=== PATIENT | female | born 1985 | race Caucasian/White ===

== ENCOUNTER → 2016-09-14 | Outpatient (CLI) | payer OTHER ==
[~2016-09-14] MED LIST: /FAMO2TA PO; /LAMO15TA PO; /ONDA4TA PO; ACET50TA PO; AMIT25TA PO; CALC600T7 PO; CARA1TAB2 PO; CLON1TAB PO; DIPH50CA PO; FENT12PA TOP; FERR325T3 PO; FISHCAP PO; FOLI5INJ2 PO; GABA-283 PO; GABA300C2 PO; HYDR-3713 PO; HYDR-3719 PO; KLON0.5T PO; LAMI25TA PO; LAMI50TA PO; LASI20TA PO; LEVO75TA3 PO; MIRA3350 PO; MORP-38 PO; MORP1CAP48 PO; MORP30TA2 PO; OMEP40CA2 PO; OXYC-517 PO; OXYC1SOL PO; OXYC5CAP28 PO; POTA10IN2 PO; PRIS100T PO; ROBA750T4 PO; SYSTSOL5 OU; TOPA50TA PO; TYLE325T5 PO; VENL75CA PO; VITA200015 PO; VITA200C10 PO; VITA250L PO; VITA400T15 PO; WELLTAB4 PO; [UNRECOGNIZED DRUG - CODE] PO; [UNRECOGNIZED DRUG - CODE] PO; [UNRECOGNIZED DRUG - OTHER] PO; [UNRECOGNIZED DRUG - OTHER] PO; pericolace PO
--- NOTE | 2016-09-18 23:52 | ECWPNPC ---
PATIENT NAME: LEMUEL LARSON : 1985 GENDER: FEMALE VISIT DATE: 09/14/2016 DISCHARGE DATE: 09/14/16 1503 VISIT LOCKED DATE TIME: PHYSICIAN: FAIZAN ADAIR RESOURCE: FAIZAN ADAIR REASON FOR APPOINTMENT 1. BACK HISTORY OF PRESENT ILLNESS HISTORY OF PRESENT ILLNESS: PAIN THE PATIENT DESCRIBES THE PAIN... FALL RISK SCREENING: SCREENING :NO FALLS IN THE PAST YEAR TODAY'S VISIT: NOTES: RATES PAIN TODAY 9/10. IS HAVING MORE TINGLING IN PALMS OF HANDS ESPECIALLY WHEN SLEEPING. IS HAVING BILATERAL HIP PAIN. NOTES SORENESS AND TENDERNESS OVER THE NECK AND SHOULDERS. STATES IS SLEEPING FAIRLY WELL. HAS NOT SEEN BH IN A WHILE. CURRENT MEDICATIONS TAKING SYSTANE ULTRA 0.4-0.3 % SOLUTION BOTH EYES OPHTHALMIC 24 TIME(S) A DAY TAKING TOPAMAX 50 MG TABLET 1 TABLET ORALLY DAILY, NOTES: WILFRIDO TAKING LAMICTAL 75 MG TABLET 1 TABLET ORALLY DAILY, NOTES: WILFRIDO TAKING VITAMIN B-12 500 MCG TABLET 1 TABLET ORALLY ONCE A DAY TAKING EFFEXOR XR 75 MG CAPSULE EXTENDED RELEASE 24 HOUR 1 CAPSULE WITH FOOD ORALLY ONCE A DAY, NOTES: PSYCH TAKING SALINE NASAL SPRAY 0.65 % SOLUTION 2 DROPS IN EACH NOSTRIL NEEDED NASALLY EVERY 2 HRS, NOTES: NOT USING TAKING IMMODIUM 1 TAB ORAL DIRECTED, NOTES: 2 TABS IN AM TAKING IRON 325 (65 FE) MG TABLET 1 TABLET ORALLY ONCE A DAY TAKING FOLIC ACID 1 MG TABLET TAKE ONE TABLET BY MOUTH EVERY DAY TAKING LEVOTHYROXINE SODIUM 75 MCG CAPSULE 1 TABLET ORALLY ONCE A DAY TAKING GABAPENTIN 300 MG CAPSULE 1 CAPSULE ORALLY THREE TIMES A DAY, NOTES: PAIN TAKING HM VITAMIN D3 2000 UNIT CAPSULE 1 CAPSULE ORALLY ONCE A DAY TAKING OXYCODONE HCL 5 MG TABLET 1 TABLET ORALLY EVERY 8-12 HRS PRN PAIN MDD=2 TAKING KLONOPIN 1 MG TABLET 1 TABLET ORALLY DAILY PRN ANXIETY MDD=1 TAKING OMEPRAZOLE 40MG 40 MG TABLET 1 TABLET ORAL ONCE DAILY NOT-TAKING BENADRYL 25 MG TABLET 1 TABLET NEEDED ORALLY TWICE A DAY, NOTES: MONTHS AGO NOT-TAKING OXYCODONE HCL 5 MG TABLET 1 TABLET ORALLY EVERY 8-12 HRS MDD=2 NOT-TAKING PRECOSE 25 MG TABLET 1 TAB(S): 30 MINUTES BEFORE A MEAL ORALLY THREE TIMES A DAY, NOTES: NOT TAKING NOT-TAKING AMITRIPTYLINE HCL 25 MG TABLET 1 TABLET AT BEDTIME ORALLY ONCE A DAY, NOTES: 1 MONTH AGO DISCONTINUED ATENOLOL 25 MG TABLET 1/2 TABLET ORALLY DAILY MEDICATION LIST REVIEWED AND RECONCILED WITH THE PATIENT PAST MEDICAL HISTORY REPORTS THYROID NODULES BUT THYROID ULTRASOUND 2011 REPORTS NO SOLID NODULE SEEN. SMALL CYSTIC AREA LOWER POLE RIGHT LOBE NO EXTRATHYROIDAL LESION GERD DEPRESSION ANXIETY FOLLOWS WITH [facility] FROM [facility] CHRONIC BACK PAIN AUTISM SPECTRUM DISORDER-ASPERGER'S SYNDROME PULMONARY EMBOLISM 2010 DIAGNOSED IN [facility], HAD EXTENSIVE WORKUP INCLUDING HYPERCOAGULABLE AND GENETIC TESTING AND REPORTEDLY WAS NEGATIVE 10 YEAR ASCVD RISK 0.3% (07/2014) ECHO FROM OCTOBER 2015 REPORTS NO SIGNIFICANT VALVAR DISEASE LEFT VENTRICULAR SYSTOLIC FUNCTION NORMAL LEFT VENTRICULAR DIASTOLIC FUNCTION NORMAL NO INTRACARDIAC MASSES OR VEGETATION. 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 NEW PATIENT PAIN DIARY TODAY'S VISITNOTES FROM 0-10, WHAT LEVEL IS YOUR PAIN TODAY?0 PAIN CLINIC PFS, CLERGY, PUBLIC HEALTH REFERRALS PFS REFERRAL NEEDED?NO CLERGY REFERRAL NEEDED?NO PUBLIC HEALTH REFERRAL NEEDED?NO WAS THE PROVIDER NOTIFIED OF ANY PERTINENT INFO?NO PFS REFERRAL NEEDED?NO CLERGY REFERRAL NEEDED?NO PUBLIC HEALTH REFERRAL NEEDED?NO WAS THE PROVIDER NOTIFIED OF ANY PERTINENT INFO?NO REVIEW OF SYSTEMS CONSTITUTIONAL: ANY CHANGE IN YOUR MEDICAL CONDITION? NO . CHILLS NO . FEVER NO . INFECTION: DO YOU HAVE NEW INFECTIONS? NO . DO YOU HAVE HISTORY OF MRSA? NO . MUSCULOSKELETAL: ANY NEW PATTERNS OF PAIN OR NUMBNESS? NO . GASTROENTEROLOGY: ANY NEW CHANGE IN BOWEL CONTROL? NO . GENITOURINARY: ANY NEW CHANGE IN BLADDER CONTROL? NO . IS THERE A CHANCE YOU COULD BE ? NO . HEMATOLOGY/LYMPH: DO YOU TAKE ANY BLOOD THINNERS? (FOR EXAMPLE- COUMADIN, PLAVIX, AGGRENOX, PLATEL, PRADAXA, OR XARELTO) NO . WHEN WAS YOUR LAST DOSE? DATE: TIME: . NEUROLOGY: HAVE YOU FALLEN IN THE PAST 6 MONTHS? NO . ANY NEW EXTREMITY NUMBNESS OR WEAKNESS? NO . CARDIOLOGY: DO YOU HAVE A PACEMAKER OR DEFIBRILLATOR? NO . RESPIRATORY: HAVE YOU BEEN SICK IN THE PAST WEEK? NO . FEVER NO . FLU LIKE SYMPTOMS? NO . COUGH NO . INTEGUMENTARY: DO YOU HAVE ANY RASHES OR OPEN SORES? NO . ALLERGIC/IMMUNO: ARE YOU ALLERGIC TO SHELLFISH OR IV DYE? NO . ANY NEW ALLERGIES? NO . PSYCHIATRIC: DO YOU HAVE THOUGHTS OF HURTING YOURSELF OR SOMEONE ELSE? NO . ARE YOU ABUSED, NEGLECTED, OR IN AN UNSAFE ENVIRONMENT? NO . ENDOCRINOLOGY: ARE YOU DIABETIC? NO . OTHER: DO YOU NEED ANY PRESCRIPTIONS? YES, SOMETHING TO HELP THE PAIN . IF YES, PLEASE LIST: ____ . ANY NEW PROBLEMS WITH YOUR MEDICATIONS? NO . WHEN DID YOU LAST EAT? ____ . WHAT DID YOU LAST DRINK? ____ . NAME OF PERSON DRIVING YOU HOME? ____ . DO YOU HAVE ANY OTHER QUESTIONS OR CONCERNS YES, NEED TO SCHEDULE EPIDURAL . REVIEWED BY: PROVIDER: FAIZAN SAHU . VITAL SIGNS WT 221 LBS, HT 63 IN, BMI 39.14 INDEX, BP 127/72 MM HG, HR 80 /MIN, RR 18 /MIN, TEMP 98.9 F, OXYGEN SAT % 100, REVIEWED BY: VD. EXAMINATION GENERAL EXAMINATION: PSYCHALERT , ORIENTED X 3 , APPROPRIATE MOOD AND AFFECT , GOOD EYE CONTACT. LUNGS:CLEAR TO AUSCULTATION BILATERALLY. HEART:HEART RATE REGULAR, RAPID. MUSCULOSKELETAL:MUSCLE STRENGTH TESTING 5/5 BILATERAL UPPER AND LOWER EXTREMITIES, TRIGGER POINTS:, ELICITED WITH PALPATION OVER LUMBAR PARAVERTEBRAL MUSCLES AND INTO THE SECRUM. RESTRICTION OF ROM IN THIS AREA. ASSESSMENTS MYALGIA - M79.1 (PRIMARY) LUMBAR DISC DISPLACEMENT WITHOUT MYELOPATHY - M51.26 FIBROMYALGIA - M79.7 USE OF OPIATES FOR THERAPEUTIC PURPOSES - Z79.891 TREATMENT MYALGIA REFILL GABAPENTIN CAPSULE, 400 MG, 1 CAPSULE, ORALLY, THREE TIMES A DAY, 90 DAYS, 270, REFILLS 2, NOTES: PAIN CERVICAL EPIDURAL FAIZAN GARCIA 09/14/2016 2:33:54 PM > INTRALAMINAR APPROACH NOTES: WALK WAS ABLE. CLINICAL NOTES: ISTOP REGISTRY REVIEWED AND DEMNOSTRATES COMPLLIANCE. BRINGS IN MEDICATIONS WHICH IS APPROPRIATE FOR WHAT WAS DISPENSED. RECENT URINE TOXICOLOGY REVIEWED. NO UNAUTHORIZED MEDICATIONS. NO ILLICIT SUBSTANCES AND PRESCRIBED MEDICATIONS WERE PRESENT. PREVENTIVE MEDICINE PAIN CLINIC TEACHING: PROCEDURE TEACHING DISCUSSED AND REVIEWED LUMBAR EPIDURAL INSTRUCTIONS. PROCEDURE CODES FA211 ESTABILISHED PATIENT [facility] CHARGE DISPOSITION & COMMUNICATION FOLLOW UP AFTER INJECTION (REASON: CHECK AUTH FOR LESB) ELECTRONICALLY SIGNED BY ELPIDIO ARAGON ON 09/18/2016 AT 09:59 AM EDT DISCLAIMER : THIS IS A VISIT SUMMARY EXTRACTED FROM THE [employer] CHART. IT IS NOT A COPY OF THE [employer] PROGRESS NOTE. MIMI
== END ==
LOC: M PAIN 14:20
PROVIDERS: ATTEND Nurse Practitioner Family
DX: Z09 Encounter for follow-up examination after completed treatment for conditions other than malignant neoplasm (principal); G89.29 Other chronic pain; M51.26 Other intervertebral disc displacement, lumbar region; M79.7 Fibromyalgia; E03.9 Hypothyroidism, unspecified; K21.9 Gastro-esophageal reflux disease without esophagitis; F32.9 Major depressive disorder, single episode, unspecified; F41.9 Anxiety disorder, unspecified; F84.5 Asperger's syndrome; E55.9 Vitamin D deficiency, unspecified; D50.9 Iron deficiency anemia, unspecified; E66.9 Obesity, unspecified; Z68.39 Body mass index [BMI] 39.0-39.9, adult; F43.10 Post-traumatic stress disorder, unspecified; Z88.8 Allergy status to other drugs, medicaments and biological substances; Z79.891 Long term (current) use of opiate analgesic; Z79.899 Other long term (current) drug therapy; Z86.711 Personal history of pulmonary embolism

== ENCOUNTER → 2016-10-11 | Outpatient (CLI) | payer OTHER ==
[~2016-10-11] MED LIST changes: +ISOVUE-M 300 61% 15ML VIAL (Q9967) As Ordered ONE; +LIDOCAINE 1% SDV INJ 30 ML VIAL As Ordered ONE; +diazePAM 5 MG TAB As Ordered ONE; +methylPREDNISolone SUSP 40 MG/ML (DEPO-medrol) VIAL (J1030) As Ordered ONE; +oxyCODONE 5MG TAB As Ordered ONE
--- NOTE | 2016-10-11 15:57 | REP ---
Partial lumbar spine series: Three views: History: Injection procedure for pain. 7 seconds of fluoroscopy time is reported. Findings: A sequence of three last image hold fluoroscopic spot radiographs of the lumbar spine document needle position and contrast injection associated with lumbar epidural injection procedure. Signed by Krishan Varghese MD 10/11/2016 04:12 P
--- NOTE | 2016-10-22 23:39 | ECWPNPC ---
PATIENT NAME: LEMUEL LARSON : 1985 GENDER: FEMALE VISIT DATE: 10/11/2016 DISCHARGE DATE: 10/11/16 1357 VISIT LOCKED DATE TIME: PHYSICIAN: MITESH DAVIS RESOURCE: MITESH DAVIS REASON FOR APPOINTMENT 1. LE HISTORY OF PRESENT ILLNESS HISTORY OF PRESENT ILLNESS: PAIN THE PATIENT DESCRIBES THE PAIN... FALL RISK SCREENING: SCREENING :NO FALLS IN THE PAST YEAR CURRENT MEDICATIONS TAKING SYSTANE ULTRA 0.4-0.3 % SOLUTION BOTH EYES OPHTHALMIC 24 TIME(S) A DAY, NOTES: 10/11/16 1000 TAKING TOPAMAX 50 MG TABLET 1 TABLET ORALLY DAILY, NOTES: 10/10/16599 TAKING LAMICTAL 75 MG TABLET 1 TABLET ORALLY DAILY, NOTES: 10/10/16599 TAKING VITAMIN B-12 500 MCG TABLET 1 TABLET ORALLY ONCE A DAY, NOTES: 10/10/16599 TAKING EFFEXOR XR 75 MG CAPSULE EXTENDED RELEASE 24 HOUR 1 CAPSULE WITH FOOD ORALLY ONCE A DAY, NOTES: 10/10/16599 TAKING SALINE NASAL SPRAY 0.65 % SOLUTION 2 DROPS IN EACH NOSTRIL NEEDED NASALLY EVERY 2 HRS, NOTES: NOT USING TAKING IMMODIUM 1 TAB ORAL DIRECTED, NOTES: NONE LATELY TAKING IRON 325 (65 FE) MG TABLET 1 TABLET ORALLY ONCE A DAY, NOTES: 10/10/162199 TAKING FOLIC ACID 1 MG TABLET TAKE ONE TABLET BY MOUTH EVERY DAY , NOTES: 10/10/16599 TAKING HM VITAMIN D3 2000 UNIT CAPSULE 1 CAPSULE ORALLY ONCE A DAY, NOTES: 10/10/16599 TAKING OMEPRAZOLE 40MG 40 MG TABLET 1 TABLET ORAL ONCE DAILY, NOTES: 10/10/162199 TAKING GABAPENTIN 400 MG CAPSULE 1 CAPSULE ORALLY THREE TIMES A DAY, NOTES: 10/10/162199 TAKING OXYCODONE HCL 5 MG TABLET 1 TABLET ORALLY EVERY 8-12 HRS PRN PAIN MDD=2, NOTES: NONE SINCE 09/30/16 TAKING KLONOPIN 1 MG TABLET 1 TABLET ORALLY DAILY PRN ANXIETY MDD=1, NOTES: 10/10/162199 TAKING LEVOTHYROXINE SODIUM 75 MCG CAPSULE 1 TABLET ORALLY ONCE A DAY, NOTES: 10/10/16599 TAKING NAPROXEN 220 MG TABLET TABLET NEEDED ORALLY TWICE A DAY NEEDED, NOTES: 10/10/16 NOT-TAKING BENADRYL 25 MG TABLET 1 TABLET NEEDED ORALLY TWICE A DAY, NOTES: MONTHS AGO NOT-TAKING OXYCODONE HCL 5 MG TABLET 1 TABLET ORALLY EVERY 8-12 HRS MDD=2 NOT-TAKING PRECOSE 25 MG TABLET 1 TAB(S): 30 MINUTES BEFORE A MEAL ORALLY THREE TIMES A DAY, NOTES: NOT TAKING NOT-TAKING AMITRIPTYLINE HCL 25 MG TABLET 1 TABLET AT BEDTIME ORALLY ONCE A DAY, NOTES: 1 MONTH AGO MEDICATION LIST REVIEWED AND RECONCILED WITH THE PATIENT PAST MEDICAL HISTORY REPORTS THYROID NODULES BUT THYROID ULTRASOUND 2011 REPORTS NO SOLID NODULE SEEN. SMALL CYSTIC AREA LOWER POLE RIGHT LOBE NO EXTRATHYROIDAL LESION GERD DEPRESSION ANXIETY FOLLOWS WITH THEODORE FROM [facility] CHRONIC BACK PAIN AUTISM SPECTRUM DISORDER-ASPERGER'S SYNDROME PULMONARY EMBOLISM 2010 DIAGNOSED IN [facility], HAD EXTENSIVE WORKUP INCLUDING HYPERCOAGULABLE AND GENETIC TESTING AND REPORTEDLY WAS NEGATIVE 10 YEAR ASCVD RISK 0.3% (07/2014) ECHO FROM OCTOBER 2015 REPORTS NO SIGNIFICANT VALVAR DISEASE LEFT VENTRICULAR SYSTOLIC FUNCTION NORMAL LEFT VENTRICULAR DIASTOLIC FUNCTION NORMAL NO INTRACARDIAC MASSES OR VEGETATION. 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 REVIEW OF SYSTEMS CONSTITUTIONAL: ANY CHANGE IN YOUR MEDICAL CONDITION? NO . CHILLS NO . FEVER NO . INFECTION: DO YOU HAVE NEW INFECTIONS? NO . DO YOU HAVE HISTORY OF MRSA? NO . MUSCULOSKELETAL: ANY NEW PATTERNS OF PAIN OR NUMBNESS? NO . GASTROENTEROLOGY: ANY NEW CHANGE IN BOWEL CONTROL? NO . GENITOURINARY: ANY NEW CHANGE IN BLADDER CONTROL? NO . IS THERE A CHANCE YOU COULD BE ? NO . HEMATOLOGY/LYMPH: DO YOU TAKE ANY BLOOD THINNERS? (FOR EXAMPLE- COUMADIN, PLAVIX, AGGRENOX, PLATEL, PRADAXA, OR XARELTO) NO . WHEN WAS YOUR LAST DOSE? DATE: TIME: . NEUROLOGY: HAVE YOU FALLEN IN THE PAST 6 MONTHS? NO . ANY NEW EXTREMITY NUMBNESS OR WEAKNESS? NO . CARDIOLOGY: DO YOU HAVE A PACEMAKER OR DEFIBRILLATOR? NO . RESPIRATORY: HAVE YOU BEEN SICK IN THE PAST WEEK? NO . FEVER NO . FLU LIKE SYMPTOMS? NO . COUGH NO . INTEGUMENTARY: DO YOU HAVE ANY RASHES OR OPEN SORES? NO . ALLERGIC/IMMUNO: ARE YOU ALLERGIC TO SHELLFISH OR IV DYE? NO . ANY NEW ALLERGIES? NO . PSYCHIATRIC: DO YOU HAVE THOUGHTS OF HURTING YOURSELF OR SOMEONE ELSE? NO . ARE YOU ABUSED, NEGLECTED, OR IN AN UNSAFE ENVIRONMENT? NO . ENDOCRINOLOGY: ARE YOU DIABETIC? NO . OTHER: DO YOU NEED ANY PRESCRIPTIONS? NO . IF YES, PLEASE LIST: ____ . ANY NEW PROBLEMS WITH YOUR MEDICATIONS? NO . WHEN DID YOU LAST EAT? ____10/11/16 0600 . WHEN DID YOU LAST DRINK? ____10/11/16 1000 . WHAT DID YOU LAST DRINK? ____SPRITE . NAME OF PERSON DRIVING YOU HOME? ____JOHN . DO YOU HAVE ANY OTHER QUESTIONS OR CONCERNS NO . REVIEWED BY: PROVIDER: . VITAL SIGNS WT 219.6 LBS, HT 63 IN, BMI 38.90 INDEX, BP 117/66 MM HG, HR 92 /MIN, RR 16 /MIN, TEMP 96.7 F, OXYGEN SAT % 97%, NA INITIALS SC 11:7, REVIEWED BY: MLF. ASSESSMENTS INTERVERTEBRAL DISC DISORDERS WITH RADICULOPATHY, LUMBAR REGION - M51.16 (PRIMARY) PROCEDURES PRE PROCEDURE DIAGNOSIS LUMBAR DISC DISORDER WITH RADICULOPATHY POST PROCEDURE DIAGNOSIS LUMBAR DISC DISORDER WITH RADICULOPATHY PROCEDURE LUMBAR EPIDURAL STEROID INJECTION UNDER FLUOROSCOPIC GUIDANCE SURGEON DR. MITESH DAVIS PARKING CONTROL OFFICER NONE ANESTHESIA LOCAL PRE PROCEDURE NOTE THE PATIENT HAS A HISTORY OF CHRONIC LOW BACK PAIN. I EVALUATE THE PATIENT AND REVIEWED THE CHART. I WENT OVER THE RISKS, ALTERNATIVES, AND BENEFITS ASSOCIATED WITH THIS PROCEDURE. THE PATIENT WOULD LIKE TO PROCEED AND GIVE CONSENT TO PERFORMED THE PROCEDURE. THE PATIENT DENIES UNEXPLAINABLE WEIGHT LOSS, FEVER, CHILLS, OR NEW CHANGES IN URINARY OR BOWEL CONTROL DESCRIPTION OF PROCEDURE THE PATIENT WAS BROUGHT TO THE PROCEDURE ROOM AND PLACED IN THE PRONE POSITION. THE LUMBOSACRAL AREA WAS CLEANED WITH BETADINE SOLUTION AND DRAPED ASEPTICALLY. THE PROCEDURE WAS DONE UNDER STERILE CONDITIONS. I CHECKED LATERALITY AND THE LEVEL WHERE THE PROCEDURE WAS GOING TO BE PERFORMED WITH THE PATIENT AND THE SUPPORTING STAFF AT THE MOMENT OF THE TIME OUT IN THE PROCEDURE ROOM. UNDER FLUOROSCOPIC GUIDANCE, THE TARGET POINT WAS SELECTED AT THE INTERLAMINAR LEVEL OF L4-L5. LIDOCAINE WAS USED TO NUMB THE SKIN AND THE SUBCUTANEOUS TISSUE BELOW IT. EPIDURAL TUOHY NEEDLE, 17-GAUGE, WAS ADVANCED UNDER FLUOROSCOPIC GUIDANCE AND FOLLOWING PATIENT FEEDBACK UNTIL THE EPIDURAL SPACE WAS REACHED, 7 CM DEEP INTO THE SKIN BY THE LOSS OF RESISTANCE TECHNIQUE. ISOVUE M DYE 30%, 0.25 ML, WAS INJECTED SHOWING ADEQUATE SPREAD OF THE DYE. THEN, A SOLUTION OF 3 ML OF NORMAL SALINE WITH DEPO-MEDROL 60 MG WAS INJECTED SLOWLY FOLLOWING PATIENT FEEDBACK. THERE WAS NO EVIDENCE OF BLOOD, PARESTHESIA OR CEREBROSPINAL FLUID DURING THE PROCEDURE. THE PATIENT WAS SENT TO THE RECOVERY ROOM. THE PATIENT WAS MOVING THE EXTREMITIES AND DOING WELL. THERE WAS NO COMPLICATION DURING THE PROCEDURE. FLUOROSCOPY TIME WAS 7 SECONDS POST PROCEDURE NOTE THE PATIENT WILL BE SEEN IN A FOLLOW UP IN THE NEXT FEW WEEKS. INSTRUCTIONS WERE GIVEN, QUESTIONS WERE ANSWERED, AND THE PATIENT EXPRESSED UNDERSTANDING AND AGREES WITH THE PLAN. I, LOYD DEL RIO, DOCUMENTED THE ABOVE INFORMATION ACTING A SCRIBE FOR DR. DAVIS. I, DR. DAVIS, HAVE REVIEWED THE ABOVE DOCUMENT, SCRIBED BY LOYD DEL RIO, AND I VERIFY THAT IT IS ACCURATE DIAGNOSTIC IMAGING [facility] FLUORO GUIDE SPINE INJECTION (PAIN)[id number] PROCEDURE CODES 41908 LUMBAR/SACRAL W/ IMAGING 6045F RADXPS IN END [id number] PXD DISPOSITION & COMMUNICATION FOLLOW UP 3 WEEKS ELECTRONICALLY SIGNED BY MITESH DAVIS MD ON 10/22/2016 AT 04:51 PM EDT DISCLAIMER : THIS IS A VISIT SUMMARY EXTRACTED FROM THE [employer] CHART. IT IS NOT A COPY OF THE [employer] PROGRESS NOTE. MIMI
== END ==
LOC: M PAIN 11:40
PROVIDERS: ATTEND Anesthesiology
DX: G89.29 Other chronic pain (principal); M51.16 Intervertebral disc disorders with radiculopathy, lumbar region; K21.9 Gastro-esophageal reflux disease without esophagitis; F32.9 Major depressive disorder, single episode, unspecified; F41.9 Anxiety disorder, unspecified; F84.5 Asperger's syndrome; Z86.711 Personal history of pulmonary embolism; G57.93 Unspecified mononeuropathy of bilateral lower limbs; E55.9 Vitamin D deficiency, unspecified; F43.10 Post-traumatic stress disorder, unspecified; F60.3 Borderline personality disorder; E03.9 Hypothyroidism, unspecified; E66.01 Morbid (severe) obesity due to excess calories; D50.9 Iron deficiency anemia, unspecified; Z79.891 Long term (current) use of opiate analgesic; Z79.899 Other long term (current) drug therapy; Z88.8 Allergy status to other drugs, medicaments and biological substances
CPT/HCPCS: 62323; J1030; Q9967

== ENCOUNTER → 2016-10-24 | Outpatient (CLI) | payer OTHER ==
[~2016-10-24] MED LIST changes: +FOLI1TAB2 PO; +GABA-282 PO; -ISOVUE-M 300 61% 15ML VIAL (Q9967) As Ordered ONE; +LAMI1TAB8 PO; +LEVO75TA4 PO; -LIDOCAINE 1% SDV INJ 30 ML VIAL As Ordered ONE; +TOPI50TA4 PO; +VENL75CA47 PO; +VITA200016 PO; +VITA500T53 PO; -diazePAM 5 MG TAB As Ordered ONE; -methylPREDNISolone SUSP 40 MG/ML (DEPO-medrol) VIAL (J1030) As Ordered ONE; -oxyCODONE 5MG TAB As Ordered ONE
--- NOTE | 2016-11-10 23:50 | ECWPNPC ---
PATIENT NAME: LEMUEL LARSON : 1985 GENDER: FEMALE VISIT DATE: 10/24/2016 DISCHARGE DATE: 10/24/16 1226 VISIT LOCKED DATE TIME: PHYSICIAN: FAIZAN ADAIR RESOURCE: FAIZAN ADAIR REASON FOR APPOINTMENT 1. POST PROCEDURE PAIN INCREASE HISTORY OF PRESENT ILLNESS HISTORY OF PRESENT ILLNESS: PAIN THE PATIENT DESCRIBES THE PAIN... FALL RISK SCREENING: SCREENING :NO FALLS IN THE PAST YEAR TODAY'S VISIT: NOTES: STATUS POST LUMBAR EPIDURAL AT L4-5. THIS WAS HELPFUL FOR THE LOW BACK PAIN AND LEG PAIN, BUT PRODUCED NO IMPROVEMENT IN THE ACTUAL PAIN AREA OF THE BASE OF THE NECH AND UPPER BACK. RATES PAIN TODAY 8/10 IN UPPER THORACIC REGION. HAS BEEN NOTING MARKED INCREASE IN STRESS WHICH INCREASES NECK AND UPPER BACK PAIN. . CURRENT MEDICATIONS TAKING SYSTANE ULTRA 0.4-0.3 % SOLUTION BOTH EYES OPHTHALMIC 24 TIME(S) A DAY TAKING TOPAMAX 50 MG TABLET 1 TABLET ORALLY DAILY TAKING LAMICTAL 75 MG TABLET 1 TABLET ORALLY DAILY TAKING VITAMIN B-12 500 MCG TABLET 1 TABLET ORALLY ONCE A DAY TAKING EFFEXOR XR 75 MG CAPSULE EXTENDED RELEASE 24 HOUR 1 CAPSULE WITH FOOD ORALLY ONCE A DAY TAKING IMMODIUM 1 TAB ORAL DIRECTED TAKING IRON 325 (65 FE) MG TABLET 1 TABLET ORALLY ONCE A DAY TAKING FOLIC ACID 1 MG TABLET TAKE ONE TABLET BY MOUTH EVERY DAY TAKING HM VITAMIN D3 2000 UNIT CAPSULE 1 CAPSULE ORALLY ONCE A DAY TAKING OMEPRAZOLE 40MG 40 MG TABLET 1 TABLET ORAL ONCE DAILY TAKING GABAPENTIN 400 MG CAPSULE 1 CAPSULE ORALLY THREE TIMES A DAY TAKING KLONOPIN 1 MG TABLET 1 TABLET ORALLY DAILY PRN ANXIETY MDD=1 TAKING LEVOTHYROXINE SODIUM 75 MCG CAPSULE 1 TABLET ORALLY ONCE A DAY TAKING NAPROXEN 220 MG TABLET TABLET NEEDED ORALLY TWICE A DAY NEEDED TAKING OXYCODONE HCL 5 MG TABLET 1 TABLET ORALLY EVERY 8-12 HRS PRN PAIN MDD=2 NOT-TAKING SALINE NASAL SPRAY 0.65 % SOLUTION 2 DROPS IN EACH NOSTRIL NEEDED NASALLY EVERY 2 HRS NOT-TAKING BENADRYL 25 MG TABLET 1 TABLET NEEDED ORALLY TWICE A DAY, NOTES: MONTHS AGO NOT-TAKING OXYCODONE HCL 5 MG TABLET 1 TABLET ORALLY EVERY 8-12 HRS MDD=2 NOT-TAKING PRECOSE 25 MG TABLET 1 TAB(S): 30 MINUTES BEFORE A MEAL ORALLY THREE TIMES A DAY, NOTES: NOT TAKING NOT-TAKING AMITRIPTYLINE HCL 25 MG TABLET 1 TABLET AT BEDTIME ORALLY ONCE A DAY, NOTES: 1 MONTH AGO MEDICATION LIST REVIEWED AND RECONCILED WITH THE PATIENT PAST MEDICAL HISTORY REPORTS THYROID NODULES BUT THYROID ULTRASOUND 2011 REPORTS NO SOLID NODULE SEEN. SMALL CYSTIC AREA LOWER POLE RIGHT LOBE NO EXTRATHYROIDAL LESION GERD DEPRESSION ANXIETY FOLLOWS WITH THE[facility]ORE FROM [facility] CHRONIC BACK PAIN AUTISM SPECTRUM DISORDER-ASPERGER'S SYNDROME PULMONARY EMBOLISM 2010 DIAGNOSED IN [facility], HAD EXTENSIVE WORKUP INCLUDING HYPERCOAGULABLE AND GENETIC TESTING AND REPORTEDLY WAS NEGATIVE 10 YEAR ASCVD RISK 0.3% (07/2014) ECHO FROM OCTOBER 2015 REPORTS NO SIGNIFICANT VALVAR DISEASE LEFT VENTRICULAR SYSTOLIC FUNCTION NORMAL LEFT VENTRICULAR DIASTOLIC FUNCTION NORMAL NO INTRACARDIAC MASSES OR VEGETATION. 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 REVIEW OF SYSTEMS CONSTITUTIONAL: ANY CHANGE IN YOUR MEDICAL CONDITION? NO . CHILLS NO . FEVER NO . INFECTION: DO YOU HAVE NEW INFECTIONS? NO . DO YOU HAVE HISTORY OF MRSA? NO . MUSCULOSKELETAL: ANY NEW PATTERNS OF PAIN OR NUMBNESS? NO . GASTROENTEROLOGY: ANY NEW CHANGE IN BOWEL CONTROL? NO . GENITOURINARY: ANY NEW CHANGE IN BLADDER CONTROL? NO . IS THERE A CHANCE YOU COULD BE ? NO . HEMATOLOGY/LYMPH: DO YOU TAKE ANY BLOOD THINNERS? (FOR EXAMPLE- COUMADIN, PLAVIX, AGGRENOX, PLATEL, PRADAXA, OR XARELTO) NO . WHEN WAS YOUR LAST DOSE? DATE: TIME: . NEUROLOGY: HAVE YOU FALLEN IN THE PAST 6 MONTHS? NO . ANY NEW EXTREMITY NUMBNESS OR WEAKNESS? NO . CARDIOLOGY: DO YOU HAVE A PACEMAKER OR DEFIBRILLATOR? NO . RESPIRATORY: HAVE YOU BEEN SICK IN THE PAST WEEK? NO . FEVER NO . FLU LIKE SYMPTOMS? NO . COUGH NO . INTEGUMENTARY: DO YOU HAVE ANY RASHES OR OPEN SORES? NO . ALLERGIC/IMMUNO: ARE YOU ALLERGIC TO SHELLFISH OR IV DYE? NO . ANY NEW ALLERGIES? NO . PSYCHIATRIC: DO YOU HAVE THOUGHTS OF HURTING YOURSELF OR SOMEONE ELSE? NO . ARE YOU ABUSED, NEGLECTED, OR IN AN UNSAFE ENVIRONMENT? NO . ENDOCRINOLOGY: ARE YOU DIABETIC? NO . OTHER: DO YOU NEED ANY PRESCRIPTIONS? NO . IF YES, PLEASE LIST: ____ . ANY NEW PROBLEMS WITH YOUR MEDICATIONS? NO . WHEN DID YOU LAST EAT? ____ . WHEN DID YOU LAST DRINK? ____ . WHAT DID YOU LAST DRINK? ____ . NAME OF PERSON DRIVING YOU HOME? ____ . DO YOU HAVE ANY OTHER QUESTIONS OR CONCERNS NO . PSYCHOLOGY: ARE YOU RECEIVING COUNSELING? SEES PSYCHIATRIST FOR MEDS - HAS SPOKEN WITH HISTORICAL GUIDE ABOUT RESTARTING COUNSELING. . REVIEWED BY: PROVIDER: FAIZAN SAHU . VITAL SIGNS WT 220 LBS, HT 63 IN, BMI 38.97 INDEX, BP 122/74 MM HG, HR 72 /MIN, RR 16 /MIN, TEMP 98.7 F, OXYGEN SAT % 100%, NA INITIALS SC 11:42, REVIEWED BY: CS. EXAMINATION GENERAL EXAMINATION: PSYCHALERT , ORIENTED X 3 , APPROPRIATE MOOD AND AFFECT , GOOD EYE CONTACT. LUNGS:CLEAR TO AUSCULTATION BILATERALLY. HEART:HEART RATE REGULAR, RAPID. MUSCULOSKELETAL:MUSCLE STRENGTH TESTING 5/5 BILATERAL UPPER AND LOWER EXTREMITIES, TRIGGER POINTS:, ELICITED WITH PALPATION OVER LUMBAR PARAVERTEBRAL MUSCLES AND INTO THE SECRUM. RESTRICTION OF ROM IN THIS AREA. ASSESSMENTS MYALGIA - M79.1 (PRIMARY) LUMBAR DISC DISPLACEMENT WITHOUT MYELOPATHY - M51.26 FIBROMYALGIA - M79.7 USE OF OPIATES FOR THERAPEUTIC PURPOSES - Z79.891 TREATMENT MYALGIA NOTES: [facility] W[facility] WRITE 1 MORE SCRIPT OF CLONAZEPAM - AFTER THAT MUST BE WRITTEN BY MENTAL HEALTH. UTOX TODAY. NO CHANGES IN MEDS. PROCEDURE CODES FA211 ESTABILISHED PATIENT [facility] F[facility] CHARGE DISPOSITION & COMMUNICATION FOLLOW UP 6 WEEKS (REASON: NECK/LOW BACK) ELECTRONICALLY SIGNED BY ELPIDIO ARAGON ON 11/10/2016 AT 03:10 PM EDT DISCLAIMER : THIS IS A VISIT SUMMARY EXTRACTED FROM THE [employer] [employer] CHART. IT IS NOT A COPY OF THE [employer] PROGRESS NOTE. MTDD
== END ==
LOC: M PAIN 11:40
PROVIDERS: ATTEND Nurse Practitioner Family
DX: G89.29 Other chronic pain (principal); M51.26 Other intervertebral disc displacement, lumbar region; M79.7 Fibromyalgia; Z79.891 Long term (current) use of opiate analgesic; K21.9 Gastro-esophageal reflux disease without esophagitis; F32.9 Major depressive disorder, single episode, unspecified; F41.9 Anxiety disorder, unspecified; M54.2 Cervicalgia; Z86.711 Personal history of pulmonary embolism; G62.9 Polyneuropathy, unspecified; E55.9 Vitamin D deficiency, unspecified; F43.10 Post-traumatic stress disorder, unspecified; F60.3 Borderline personality disorder; E03.9 Hypothyroidism, unspecified; E66.01 Morbid (severe) obesity due to excess calories; D50.9 Iron deficiency anemia, unspecified; R42 Dizziness and giddiness; Z88.8 Allergy status to other drugs, medicaments and biological substances; Z79.899 Other long term (current) drug therapy

== ENCOUNTER 2016-11-13 22:24 | Emergency (ER) | payer OTHER ==
[~2016-11-13] VITALS: Ht 160 cm; Wt 99.8 kg
[~2016-11-13 22:24] MED LIST changes: -FOLI1TAB2 PO; -GABA-282 PO; -LAMI1TAB8 PO; -LEVO75TA4 PO; -TOPI50TA4 PO; -VENL75CA47 PO; -VITA200016 PO; -VITA500T53 PO
[2016-11-13 23:53] LABS: MEAN CORPUSCULAR HEMOGLOBIN 30.4 pg (27.0-33.0); MEAN CORPUSCULAR HGB CONC 32.2 g/dl (32.0-36.5); MEAN CORPUSCULAR VOLUME 94.4 fl (80.0-96.0); RED CELL DISTRIBUTION WIDTH 13.2 % (11.5-14.5); WHITE BLOOD COUNT 9.2 K/mm3 (4.0-10.0)
[2016-11-14 00:11] LABS: CONTROL LINE HCG INT CTR LINE PRESENT
[2016-11-14 00:16] LABS: METHADONE URINE NEGATIVE (NEGATIVE)
[2016-11-14 00:28] LABS: ALBUMIN 3.7 GM/DL (3.2-5.2); ALBUMIN/GLOBULIN RATIO 1.06 (1.00-1.93); ALKALINE PHOSPHATASE 82 U/L (45-117); ALT/SGPT 22 U/L (12-78); ANION GAP 9 MEQ/L (8-16); AST/SGOT 16 U/L (15-37); BILIRUBIN,DIRECT < 0.1 MG/DL (0.0-0.2); BILIRUBIN,TOTAL 0.2 MG/DL (0.2-1.0); BLOOD UREA NITROGEN 19 MG/DL (7-18); CALCIUM LEVEL 8.6 MG/DL (8.5-10.1); CARBON DIOXIDE LEVEL 24 MEQ/L (21-32); CHLORIDE LEVEL 110 MEQ/L (98-107); CREATININE FOR GFR 0.98 MG/DL (0.55-1.02); GLOMERULAR FILTRATION RATE > 60.0 (>60); GLUCOSE, FASTING 84 MG/DL (70-105); POTASSIUM SERUM 3.8 MEQ/L (3.5-5.1); SODIUM LEVEL 143 MEQ/L (136-145); TOTAL PROTEIN 7.2 GM/DL (6.4-8.2)
[2016-11-14] MEDS ORDERED: FOLI1TAB2 PO (03:47)
[2016-11-14] MEDS ORDERED: GABA-282 PO (03:47)
[2016-11-14] MEDS ORDERED: VITA200016 PO (03:50)
[2016-11-14] MEDS ORDERED: LEVO75TA4 PO (03:50)
[2016-11-14] MEDS ORDERED: TOPI50TA4 PO (03:50)
[2016-11-14] MEDS ORDERED: OXYC-517 PO (03:50)
[2016-11-14] MEDS ORDERED: VENL75CA47 PO (03:50)
[2016-11-14] MEDS ORDERED: LAMI1TAB8 PO (03:50)
[2016-11-14] MEDS ORDERED: LEVOTHYROXINE 0.075 MG TAB (75 MCG) PO SCH (06:00)
[2016-11-14] MEDS ORDERED: GABA-283 PO (08:38)
[2016-11-14] MEDS ORDERED: VITA500T53 PO (08:40)
[2016-11-14] MEDS ORDERED: lamoTRIgine 25 MG TAB PO ONE (09:15)
[2016-11-14] MEDS ORDERED: TOPIRAMATE (TopAMAX) 25 MG TAB PO ONE (09:15)
[2016-11-14] MEDS ORDERED: GABAPENTIN 400 MG CAP PO ONE (09:15)
[2016-11-14] MEDS ORDERED: clonazePAM 0.5 MG TAB PO ONE (09:15)
[2016-11-14] MEDS ORDERED: clonazePAM 1 MG TAB PO ONE (09:15)
[2016-11-14] MEDS ORDERED: VENLAFAXINE **XR** 75MG CAPSULE PO ONE (10:30)
--- NOTE | 2016-11-14 10:45 | ECGEPIP ---
Stationary ECG Study [facility] - ED Test Date: 2016-11-14 Pat Name: LEMUEL LARSON Department: Room: - Gender: F Learning Designer: JAshley : 1985 Requested By: MAXIMINO Ocasio Order Number: [id number] Reading MD: Clare Harkins Measurements Intervals [place] Rate: 76 P: 62 TX: 131 QRS: 44 QRSD: 88 T: 35 QT: 390 QTc: 440 Interpretive Statements SINUS RHYTHM SIMILAR 07/30/15 Electronically Signed On 11-14-2016 10:44:58 EDT by Clare Harkins
[2016-11-14 11:56] VITALS: BP 128/80
== END 2016-11-14 11:57 ==
LOC: M ED 22:24
DX: F32.9 Major depressive disorder, single episode, unspecified (principal); E55.9 Vitamin D deficiency, unspecified; D64.9 Anemia, unspecified; E07.9 Disorder of thyroid, unspecified; G43.909 Migraine, unspecified, not intractable, without status migrainosus; G89.29 Other chronic pain; Z98.84 Bariatric surgery status; Z79.899 Other long term (current) drug therapy; Z88.5 Allergy status to narcotic agent; Z88.8 Allergy status to other drugs, medicaments and biological substances

== ENCOUNTER → 2016-11-30 | Outpatient (REF) | payer OTHER ==
[~2016-11-30] MED LIST changes: +FOLI1TAB2 PO; +GABA-282 PO; +LAMI1TAB8 PO; +LEVO75TA4 PO; +TOPI50TA4 PO; +VENL75CA47 PO; +VITA200016 PO; +VITA500T53 PO
== END ==
LOC: M SFHCPLAZ 14:16
DX: E03.9 Hypothyroidism, unspecified (principal)

== ENCOUNTER → 2016-12-01 | Outpatient (REF) | payer OTHER | LOC: M SFHCPLAZ 14:40 | DX: Z53.8 Procedure and treatment not carried out for other reasons (principal) ==

== ENCOUNTER → 2016-12-01 | Outpatient (CLI) | payer OTHER ==
[~2016-12-01] MED LIST changes: +ABIL1TAB5; +BUSP15TA47; +DULO1CAP2; +GABA-282; +LEVO50TA5; +TIZA2TA; +VITA200015
--- NOTE | 2016-12-17 23:45 | ECWPNPC ---
PATIENT NAME: LEMUEL LARSON : 1985 GENDER: FEMALE VISIT DATE: 12/01/2016 DISCHARGE DATE: 12/01/16 1030 VISIT LOCKED DATE TIME: PHYSICIAN: FAIZAN ADAIR RESOURCE: FAIZAN ADAIR REASON FOR APPOINTMENT 1. BACK HISTORY OF PRESENT ILLNESS HISTORY OF PRESENT ILLNESS: PAIN THE PATIENT DESCRIBES THE PAIN... FALL RISK SCREENING: SCREENING :NO FALLS IN THE PAST YEAR TODAY'S VISIT: NOTES: RATES PAIN LEVEL TODAY 7/10. DESCRIBES PAIN CONSTANT, ACHING, TENDER, THROBBING AND SORE. PAIN IS CENTERED ACROSS THE SHOULDERS AND ALONG MID THORACIC SPINE TO SHOULDER BLADES, AND ACROSS THE LOW BACK TO BOTH HIPS. CURRENT MEDICATIONS TAKING OXYCODONE HCL 5 MG TABLET 1 TABLET ORALLY EVERY 8-12 HRS MDD=2 TAKING SYSTANE ULTRA 0.4-0.3 % SOLUTION BOTH EYES OPHTHALMIC 24 TIME(S) A DAY TAKING VITAMIN B-12 500 MCG TABLET 1 TABLET ORALLY ONCE A DAY TAKING IMMODIUM 1 TAB ORAL DIRECTED, NOTES: ONCE A WEEK PRN TAKING IRON 325 (65 FE) MG TABLET 1 TABLET ORALLY ONCE A DAY TAKING FOLIC ACID 1 MG TABLET TAKE ONE TABLET BY MOUTH EVERY DAY TAKING HM VITAMIN D3 2000 UNIT CAPSULE 1 CAPSULE ORALLY ONCE A DAY TAKING OMEPRAZOLE 40MG 40 MG TABLET 1 TABLET ORAL ONCE DAILY TAKING GABAPENTIN 600 MG TABLET 1 CAPSULE ORALLY THREE TIMES A DAY TAKING LEVOTHYROXINE SODIUM 75 MCG CAPSULE 1 TABLET ORALLY ONCE A DAY TAKING NAPROXEN 220 MG TABLET TABLET NEEDED ORALLY TWICE A DAY NEEDED TAKING ABILIFY 5 MG TABLET 1 TABLET ORALLY ONCE A DAY TAKING CYMBALTA 30 MG CAPSULE DELAYED RELEASE PARTICLES 1 CAPSULE ORALLY ONCE DAILY TAKING BUSPAR 15 MG TABLET 1/2 TABLET ORALLY TWICE A DAY TAKING BENADRYL 25 MG TABLET 1 TABLET NEEDED ORALLY TWICE A DAY, NOTES: MONTHS AGO NOT-TAKING OXYCODONE HCL 5 MG TABLET 1 TABLET ORALLY EVERY 8-12 HRS PRN PAIN MDD=2 NOT-TAKING ATENOLOL 25 MG TABLET 1 TABLET ORALLY ONCE A DAY, NOTES: 1/2 TAB NOT-TAKING PRECOSE 25 MG TABLET 1 TAB(S): 30 MINUTES BEFORE A MEAL ORALLY THREE TIMES A DAY, NOTES: NOT TAKING MEDICATION LIST REVIEWED AND RECONCILED WITH THE PATIENT PAST MEDICAL HISTORY REPORTS THYROID NODULES BUT THYROID ULTRASOUND 2011 REPORTS NO SOLID NODULE SEEN. SMALL CYSTIC AREA LOWER POLE RIGHT LOBE NO EXTRATHYROIDAL LESION GERD DEPRESSION ANXIETY FOLLOWS WITH [facility]ORE FROM [facility] CHRONIC BACK PAIN AUTISM SPECTRUM DISORDER-ASPERGER'S SYNDROME PULMONARY EMBOLISM 2010 DIAGNOSED IN [facility], HAD EXTENSIVE WORKUP INCLUDING HYPERCOAGULABLE AND GENETIC TESTING AND REPORTEDLY WAS NEGATIVE 10 YEAR ASCVD RISK 0.3% (07/2014) ECHO FROM OCTOBER 2015 REPORTS NO SIGNIFICANT VALVAR DISEASE LEFT VENTRICULAR SYSTOLIC FUNCTION NORMAL LEFT VENTRICULAR DIASTOLIC FUNCTION NORMAL NO INTRACARDIAC MASSES OR VEGETATION. 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 NO . CHILLS NO . FEVER NO . INFECTION: DO YOU HAVE NEW INFECTIONS? NO . DO YOU HAVE HISTORY OF MRSA? NO . MUSCULOSKELETAL: ANY NEW PATTERNS OF PAIN OR NUMBNESS? NO . GASTROENTEROLOGY: ANY NEW CHANGE IN BOWEL CONTROL? NO . GENITOURINARY: ANY NEW CHANGE IN BLADDER CONTROL? NO . IS THERE A CHANCE YOU COULD BE ? NO . HEMATOLOGY/LYMPH: DO YOU TAKE ANY BLOOD THINNERS? (FOR EXAMPLE- COUMADIN, PLAVIX, AGGRENOX, PLATEL, PRADAXA, OR XARELTO) NO . WHEN WAS YOUR LAST DOSE? DATE: TIME: . NEUROLOGY: HAVE YOU FALLEN IN THE PAST 6 MONTHS? NO . ANY NEW EXTREMITY NUMBNESS OR WEAKNESS? NO . CARDIOLOGY: DO YOU HAVE A PACEMAKER OR DEFIBRILLATOR? NO . RESPIRATORY: HAVE YOU BEEN SICK IN THE PAST WEEK? YES . FEVER NO . FLU LIKE SYMPTOMS? NO . COUGH NO . INTEGUMENTARY: DO YOU HAVE ANY RASHES OR OPEN SORES? NO . ALLERGIC/IMMUNO: ARE YOU ALLERGIC TO SHELLFISH OR IV DYE? NO . ANY NEW ALLERGIES? NO . PSYCHIATRIC: DO YOU HAVE THOUGHTS OF HURTING YOURSELF OR SOMEONE ELSE? NO . ARE YOU ABUSED, NEGLECTED, OR IN AN UNSAFE ENVIRONMENT? NO . ENDOCRINOLOGY: ARE YOU DIABETIC? NO . OTHER: DO YOU NEED ANY PRESCRIPTIONS? NEED TO TALK TO YOU . IF YES, PLEASE LIST: ____ . ANY NEW PROBLEMS WITH YOUR MEDICATIONS? NO . WHEN DID YOU LAST EAT? ____ . WHEN DID YOU LAST DRINK? ____ . WHAT DID YOU LAST DRINK? ____ . NAME OF PERSON DRIVING YOU HOME? ____ . DO YOU HAVE ANY OTHER QUESTIONS OR CONCERNS NO . PSYCHOLOGY: ARE YOU RECEIVING COUNSELING? RECENT MENTAL HEALTH ADMISSION WITH SIGNIFICANT MED CHANGES. HAS FOLLOWED UP WITH LOCAL PSYCHIATRIST. . REVIEWED BY: PROVIDER: FAIZAN SAHU . VITAL SIGNS WT 236.8 LBS, HT 63 IN, BMI 41.94 INDEX, BP 127/72 MM HG, HR 80 /MIN, RR 18 /MIN, TEMP 97.8 F, OXYGEN SAT % 97%, NA INITIALS SC 09:51, REVIEWED BY: NL. EXAMINATION GENERAL EXAMINATION: PSYCHALERT , ORIENTED X 3 , APPROPRIATE MOOD AND AFFECT , GOOD EYE CONTACT. LUNGS:CLEAR TO AUSCULTATION BILATERALLY. HEART:HEART RATE REGULAR, RAPID. MUSCULOSKELETAL:MUSCLE STRENGTH TESTING 5/5 BILATERAL UPPER AND LOWER EXTREMITIES, TRIGGER POINTS:, ELICITED WITH PALPATION OVER LUMBAR PARAVERTEBRAL MUSCLES AND INTO THE SECRUM. RESTRICTION OF ROM IN THIS AREA. ASSESSMENTS MYALGIA - M79.1 (PRIMARY) LUMBAR DISC DISPLACEMENT WITHOUT MYELOPATHY - M51.26 FIBROMYALGIA - M79.7 USE OF OPIATES FOR THERAPEUTIC PURPOSES - Z79.891 TREATMENT MYALGIA START TIZANIDINE HCL TABLET, 2 MG, 1 TABLET NEEDED, ORALLY, THREE TIMES A DAY, 30 DAY(S), 90 TABLET, REFILLS 1 NOTES: CONTINUE CURRENT MEDS EXCEPT CLONAZAPAM. WALK DAILY. CLINICAL NOTES: ISTOP REGISTRY REVIEWED AND DEMNOSTRATES COMPLLIANCE. BRINGS IN MEDICATIONS WHICH IS APPROPRIATE FOR WHAT WAS DISPENSED. RECENT URINE TOXICOLOGY REVIEWED. NO UNAUTHORIZED MEDICATIONS. NO ILLICIT SUBSTANCES AND PRESCRIBED MEDICATIONS WERE PRESENT. PROCEDURE CODES FA211 ESTABILISHED PATIENT [facility] CHARGE DISPOSITION & COMMUNICATION FOLLOW UP 4-6 WEEKS (REASON: NECK AND BACK PAIN) ELECTRONICALLY SIGNED BY ELPIDIO ARAGON ON 12/17/2016 AT 03:39 PM EDT DISCLAIMER : THIS IS A VISIT SUMMARY EXTRACTED FROM THE [employer] CHART. IT IS NOT A COPY OF THE [employer] PROGRESS NOTE. MIMI
== END ==
LOC: M PAIN 10:00
PROVIDERS: ATTEND Nurse Practitioner Family
DX: G89.29 Other chronic pain (principal); M51.26 Other intervertebral disc displacement, lumbar region; M79.7 Fibromyalgia; Z79.891 Long term (current) use of opiate analgesic; K21.9 Gastro-esophageal reflux disease without esophagitis; F32.9 Major depressive disorder, single episode, unspecified; F41.9 Anxiety disorder, unspecified; F84.5 Asperger's syndrome; M25.512 Pain in left shoulder; M25.511 Pain in right shoulder; Z86.711 Personal history of pulmonary embolism; E55.9 Vitamin D deficiency, unspecified; F43.10 Post-traumatic stress disorder, unspecified; F60.3 Borderline personality disorder; E66.01 Morbid (severe) obesity due to excess calories; D50.9 Iron deficiency anemia, unspecified; R42 Dizziness and giddiness; Z88.5 Allergy status to narcotic agent; Z88.8 Allergy status to other drugs, medicaments and biological substances; Z79.1 Long term (current) use of non-steroidal anti-inflammatories (NSAID); Z79.899 Other long term (current) drug therapy

== ENCOUNTER → 2016-12-06 | Outpatient (REF) | payer OTHER ==
[~2016-12-06] MED LIST changes: -ABIL1TAB5; -BUSP15TA47; -DULO1CAP2; -GABA-282; -LEVO50TA5; -TIZA2TA; -VITA200015
== END ==
LOC: CANPREREF → M SFHCPLAZ 16:11
PROVIDERS: ATTEND Internal Medicine
DX: Z53.8 Procedure and treatment not carried out for other reasons (principal)

== ENCOUNTER 2016-12-18 14:46 | Emergency (ER) | payer OTHER ==
[~2016-12-18] VITALS: Ht 160 cm; Wt 105.1 kg
[~2016-12-18 14:46] MED LIST changes: -FOLI1TAB2 PO; +FOLI1TAB4 PO; -OXYC1SOL PO; +OXYC1SOL3 PO; -TOPI50TA4 PO; +TOPI50TA9 PO
[2016-12-18] MEDS ORDERED: LEVO50TA5 (15:03)
[2016-12-18] MEDS ORDERED: VITA200015 (15:03)
[2016-12-18] MEDS ORDERED: TIZA2TA (15:03)
[2016-12-18] MEDS ORDERED: DULO1CAP2 (15:04)
[2016-12-18] MEDS ORDERED: ABIL10TA9 (15:04)
[2016-12-18] MEDS ORDERED: GABA-282 (15:04)
[2016-12-18] MEDS ORDERED: BUSP15TA47 (15:04)
[2016-12-18 17:27] VITALS: BP 147/89
--- NOTE | 2016-12-18 17:50 | REP ---
RIGHT FOOT, FOUR VIEWS: There is no evidence of an acute fracture, dislocation or intrinsic bone disease. IMPRESSION: No fracture or dislocation. Signed by Paulo Du MD 12/18/2016 08:22 P
== END 2016-12-18 17:28 | disposition home or self-care (01) ==
LOC: M ED 15:54
DX: M67.471 Ganglion, right ankle and foot (principal); M79.7 Fibromyalgia; F31.9 Bipolar disorder, unspecified; E03.9 Hypothyroidism, unspecified; F41.9 Anxiety disorder, unspecified; Z88.8 Allergy status to other drugs, medicaments and biological substances; Z88.5 Allergy status to narcotic agent; Z79.899 Other long term (current) drug therapy

== ENCOUNTER → 2016-12-19 | Outpatient (CLI) | payer OTHER ==
[~2016-12-19] MED LIST changes: +ABIL1TAB5; +BUSP15TA47; +DULO1CAP2; +FOLI1TAB2 PO; -FOLI1TAB4 PO; +GABA-282; +LEVO50TA5; +OXYC1SOL PO; -OXYC1SOL3 PO; +TIZA2TA; +TOPI50TA4 PO; -TOPI50TA9 PO; +VITA200015
[2016-12-19 11:55] LABS: MEAN CORPUSCULAR HEMOGLOBIN 31.7 pg (27.0-33.0); MEAN CORPUSCULAR HGB CONC 33.4 g/dl (32.0-36.5); MEAN CORPUSCULAR VOLUME 94.9 fl (80.0-96.0); RED CELL DISTRIBUTION WIDTH 12.9 % (11.5-14.5); WHITE BLOOD COUNT 6.9 K/mm3 (4.0-10.0)
[2016-12-19 12:03] LABS: INR 1.07
== END ==
LOC: M LAB 11:08
PROVIDERS: ATTEND Internal Medicine
DX: D50.8 Other iron deficiency anemias (principal)

== ENCOUNTER → 2016-12-19 | Outpatient (REF) | payer OTHER | LOC: M SFHCPLAZ 16:07 | PROVIDERS: ATTEND Internal Medicine | DX: Z53.8 Procedure and treatment not carried out for other reasons (principal); D64.9 Anemia, unspecified ==

== ENCOUNTER → 2016-12-19 | Outpatient (CLI) | payer OTHER ==
--- NOTE | 2016-12-20 04:55 | REP ---
Clinical: Thyroid nodule. Comparison: 04/29/2012. Technique: Real time arora scale and color evaluation using linear high frequency transducer. Findings: The thyroid gland is relatively normal in contour, size, echogenicity and overall appearance. Right lobe measures 3.8 x 1.4 x 1.0 cm and includes a 4 x 3 x 4 mm complex nodule at the site of prior 8 mm cyst identified on 2011. Left lobe measures 3.7 x 1.0 x 1.0 cm without significant nodule or cyst. Isthmus measures 3 mm in width. Multiple small normal lymph nodes are identified in the submandibular region. Impression: 1. A nonspecific 4 mm complex nodule at the site of prior cyst identified in the right lobe. Otherwise essentially unremarkable thyroid gland. 2. Multiple submandibular lymph nodes normal in appearance. Signed by Luis Osorio MD 12/20/2016 04:47 A
== END ==
LOC: M RAD 10:44
PROVIDERS: ATTEND Family Medicine
DX: E04.1 Nontoxic single thyroid nodule (principal)

== ENCOUNTER → 2016-12-25 | Outpatient (CLI) | payer OTHER ==
[2016-12-25 13:27] LABS: MEAN CORPUSCULAR HEMOGLOBIN 31.7 pg (27.0-33.0); MEAN CORPUSCULAR HGB CONC 32.7 g/dl (32.0-36.5); MEAN CORPUSCULAR VOLUME 97.1 fl (80.0-96.0); RED CELL DISTRIBUTION WIDTH 12.8 % (11.5-14.5); WHITE BLOOD COUNT 6.6 K/mm3 (4.0-10.0)
[2016-12-25 13:50] LABS: INR 1.01
== END ==
LOC: M LAB 12:41
PROVIDERS: ATTEND Internal Medicine
DX: D50.8 Other iron deficiency anemias (principal)

== ENCOUNTER → 2017-01-08 | Outpatient (REF) | payer OTHER ==
[~2017-01-08] MED LIST changes: +ABIL10TA9; -ABIL1TAB5; -FOLI1TAB2 PO; +FOLI1TAB4 PO; -OXYC1SOL PO; +OXYC1SOL3 PO; -TOPI50TA4 PO; +TOPI50TA9 PO
== END ==
LOC: M SFHCWAGY 10:18
PROVIDERS: ATTEND Nurse Practitioner Family
DX: Z01.419 Encounter for gynecological examination (general) (routine) without abnormal findings (principal); Z11.3 Encounter for screening for infections with a predominantly sexual mode of transmission; Z11.51 Encounter for screening for human papillomavirus (HPV); R87.612 Low grade squamous intraepithelial lesion on cytologic smear of cervix (LGSIL)

== ENCOUNTER → 2017-02-01 | Outpatient (REF) | payer OTHER ==
[2017-02-01 18:54] LABS: MEAN CORPUSCULAR HEMOGLOBIN 31.4 pg (27.0-33.0); MEAN CORPUSCULAR VOLUME 95.3 fl (80.0-96.0); RED CELL DISTRIBUTION WIDTH 12.5 % (11.5-14.5); WHITE BLOOD COUNT 9.6 K/mm3 (4.0-10.0)
== END ==
LOC: M SFHCPLAZ 15:52
PROVIDERS: ATTEND Family Medicine
DX: D50.9 Iron deficiency anemia, unspecified (principal); E04.1 Nontoxic single thyroid nodule; E55.9 Vitamin D deficiency, unspecified

== ENCOUNTER → 2017-02-15 | Outpatient (CLI) | payer OTHER ==
--- NOTE | 2017-03-03 00:17 | ECWPNPC ---
PATIENT NAME: LEMUEL LARSON : 1985 GENDER: FEMALE VISIT DATE: 02/15/2017 DISCHARGE DATE: 02/15/17 1445 VISIT LOCKED DATE TIME: PHYSICIAN: FAIZAN ADAIR RESOURCE: FAIZAN ADAIR REASON FOR APPOINTMENT 1. BACK AND FIBRO HISTORY OF PRESENT ILLNESS HISTORY OF PRESENT ILLNESS: PAIN THE PATIENT DESCRIBES THE PAIN... FALL RISK SCREENING: SCREENING :NO FALLS IN THE PAST YEAR TODAY'S VISIT: NOTES: RATES PAIN TODAY 8/10. DESCRIBES THE PAIN CONSTANT, ACHING, INTERMITTANTLY SHARP AND STABBING, TENDER, SORE AND IS DRAINING. PAIN IS CENTERED ACROSS THE ENCK, MID BACK AND ACROSS THE LOW BACK. . CURRENT MEDICATIONS TAKING SYSTANE ULTRA 0.4-0.3 % SOLUTION BOTH EYES OPHTHALMIC 24 TIME(S) A DAY TAKING VITAMIN B-12 500 MCG TABLET 1 TABLET ORALLY ONCE A DAY TAKING IMMODIUM 1 TAB ORAL DIRECTED, NOTES: ONCE A WEEK PRN TAKING FOLIC ACID 1 MG TABLET TAKE ONE TABLET BY MOUTH EVERY DAY TAKING HM VITAMIN D3 2000 UNIT CAPSULE 1 CAPSULE ORALLY ONCE A DAY TAKING GABAPENTIN 300 MG CAPSULE 2 CAPSULE ORALLY THREE TIMES A DAY TAKING NAPROXEN 220 MG TABLET TABLET NEEDED ORALLY TWICE A DAY NEEDED TAKING ABILIFY 5 MG TABLET 1 TABLET ORALLY ONCE A DAY TAKING CYMBALTA 30 MG CAPSULE DELAYED RELEASE PARTICLES 1 CAPSULE ORALLY ONCE DAILY TAKING BUSPAR 15 MG TABLET 1/2 TABLET ORALLY TWICE A DAY TAKING BENADRYL 25 MG TABLET 1 TABLET NEEDED ORALLY TWICE A DAY, NOTES: MONTHS AGO TAKING SYNTHROID 50 MCG TABLET 1 TABLET ON AN EMPTY STOMACH IN THE MORNING ORALLY ONCE A DAY TAKING TIZANIDINE HCL 4 MG TABLET 1 TABLET NEEDED ORALLY THREE TIMES A DAY TAKING OMEPRAZOLE 40MG 40 MG TABLET 1 TABLET ORAL ONCE DAILY TAKING IRON 325 (65 FE) MG TABLET 1 TABLET ORALLY BID TAKING OXYCODONE HCL 5 MG TABLET 1 TABLET ORALLY EVERY 8-12 HRS MDD=2 MEDICATION LIST REVIEWED AND RECONCILED WITH THE PATIENT PAST MEDICAL HISTORY REPORTS THYROID NODULES BUT THYROID ULTRASOUND 2011 REPORTS NO SOLID NODULE SEEN. 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 HEART RATE AVERAGE 97. HEART RATE RANGE [phone]. NO PAROXYSMAL SUPRAVENTRICULAR TACHYCARDIA, CAUSES, PACS. ECHO FROM OCTOBER 2015 REPORTS NO SIGNIFICANT VALVAR DISEASE LEFT VENTRICULAR SYSTOLIC FUNCTION NORMAL LEFT VENTRICULAR DIASTOLIC FUNCTION NORMAL NO INTRACARDIAC MASSES OR VEGETATION. PERICARDIAL EFFUSION RELATIVELY NORMAL ECHO FIBROMYALGIA ALLERGIES ZOCOR: CHEST PAIN,JOINT PAIN: ALLERGY TRAMADOL HCL: SEROTONIN SYNDROME: SIDE EFFECTS SOCIAL HISTORY GENERAL: TOBACCO USE ARE YOU A:NONSMOKER NEVER SMOKER BMI CARE GOAL FOLLOW-UP ABOVE NORMAL BMI FOLLOW-UPGIVING ENCOURAGEMENT TO EXERCISE ALCOHOL SCREENING DID YOU HAVE A DRINK CONTAINING ALCOHOL IN THE PAST YEAR?NO POINTS0 INTERPRETATIONNEGATIVE RECREATIONAL DRUG USE DRUG USE?NO CAFFEINE CAFFEINE USE?YES SODA SEXUAL HX HAD SEX IN THE LAST 12 MONTHS (VAGINAL, ORAL, OR ANAL)?YES WITHMEN ONLY USE PROTECTION?YES HOW OFTEN?ALL OF THE TIME PREVENTION STRATEGIES DISCUSSED:CONDOMS HAVE YOU EVER HAD AN STD?YES CHLAMYDIA?YES GC?NO SYPHILIS?NO HERPES?NO OTHER?NO HIV / HEP-C SCREENING HIV TEST OFFERED TO PATIENT:YES DATE OFFERED:02/01/2017 TEST ACCEPTED:NO REASON:PATIENT DECLINED OCCUPATION: UNEMPLOYED/DISABLED. MARITAL STATUS: SINGLE. OTHERS AT HOME: BOYFRIEND, AND HIS SON. PETS: 6 CATS, 1 DOG. CONFUCIANIST [id number] NONE NO PENTECOSTAL BELIEFS THAT WOULD IMPACT HEALTH CARE. LANGUAGE LANGUAGES SPOKEN:GREEK EDUCATION LEVEL OF EDUCATION:NOT FINISHED COLLEGE LEARNING BARRIERS / SPECIAL NEEDS CHANGE FROM LAST VISIT?NO BARRIERS TO LEARNING?NO HEARING IMPAIRED?NO VISION IMPAIRED?YES :CORRECTIVE LENSES COGNITIVELY IMPAIRED?NO READINESS TO LEARN?YES LEARNING PREFERENCES?NO LEARNING CAPABILITIES PRESENT?YES EMOTIONAL BARRIERS?NO SPECIAL DEVICES?NO EARTHMOVING PLANT OPERATOR NEEDED?NO PAIN CLINIC PFS, CLERGY, PUBLIC HEALTH REFERRALS PFS REFERRAL NEEDED?NO CLERGY REFERRAL NEEDED?NO PUBLIC HEALTH REFERRAL NEEDED?NO HAS THE PATIENT BEEN EDUCATED REGARDING HIS/HER PLAN OF CARE?YES HAS THE PATIENT BEEN EDUCATED REGARDING PAIN, THE RISK FOR PAIN, THE IMPORTANCE OF EFFECTIVE PAIN MANAGEMENT, AND THE PAIN ASSESSMENT PROCESS?YES PATIENT: ____. REVIEW OF SYSTEMS FOLLOW-UP ROS: GASTROENTEROLOGY: GAS PAIN STILL A PROBLEM. IS CONCERNED ABOUT AN ULCER. STILL FOLLOWS WITH DR QUILES REGARDING GASTRIC BYPASS . PSYCHOLOGY: IS SEEING COUNSELOR EVERY 2 WEEKS. IS NOTING INCREASED ANXIETY WITH UPCOMING MOVE. . REVIEWED BY: PROVIDER: FAIZAN SAHU . CONSTITUTIONAL: ANY CHANGE IN YOUR MEDICAL CONDITION? NO . CHILLS NO . FEVER NO . INFECTION: DO YOU HAVE NEW INFECTIONS? NO . DO YOU HAVE HISTORY OF MRSA? NO . MUSCULOSKELETAL: ANY NEW PATTERNS OF PAIN OR NUMBNESS? YES, INCREASED &QUOT;NERVE PAIN&QUOT; IN BOTH HANDS WITH THE LEFT HAND BEING WORSE . GASTROENTEROLOGY: ANY NEW CHANGE IN BOWEL CONTROL? NO . GENITOURINARY: ANY NEW CHANGE IN BLADDER CONTROL? NO . IS THERE A CHANCE YOU COULD BE ? NO . HEMATOLOGY/LYMPH: DO YOU TAKE ANY BLOOD THINNERS? (FOR EXAMPLE- COUMADIN, PLAVIX, AGGRENOX, PLATEL, PRADAXA, OR XARELTO) NO . WHEN WAS YOUR LAST DOSE? DATE: TIME: . NEUROLOGY: HAVE YOU FALLEN IN THE PAST 6 MONTHS? NO . ANY NEW EXTREMITY NUMBNESS OR WEAKNESS? NO . CARDIOLOGY: DO YOU HAVE A PACEMAKER OR DEFIBRILLATOR? NO . RESPIRATORY: HAVE YOU BEEN SICK IN THE PAST WEEK? NO . FEVER NO . FLU LIKE SYMPTOMS? NO . COUGH NO . INTEGUMENTARY: DO YOU HAVE ANY RASHES OR OPEN SORES? NO . ALLERGIC/IMMUNO: ARE YOU ALLERGIC TO SHELLFISH OR IV DYE? NO . ANY NEW ALLERGIES? NO . PSYCHIATRIC: DO YOU HAVE THOUGHTS OF HURTING YOURSELF OR SOMEONE ELSE? NO . ARE YOU ABUSED, NEGLECTED, OR IN AN UNSAFE ENVIRONMENT? NO . ENDOCRINOLOGY: ARE YOU DIABETIC? NO . OTHER: DO YOU NEED ANY PRESCRIPTIONS? NO . IF YES, PLEASE LIST: ____ . ANY NEW PROBLEMS WITH YOUR MEDICATIONS? NO . WHEN DID YOU LAST EAT? ____ . WHEN DID YOU LAST DRINK? ____ . WHAT DID YOU LAST DRINK? ____ . NAME OF PERSON DRIVING YOU HOME? ____ . DO YOU HAVE ANY OTHER QUESTIONS OR CONCERNS YES, &QUOT;NEED TO DISCUSS NERVE PAIN, NEED TO DISCUSS MED DOSAGE&QUOT; . VITAL SIGNS WT 234 LBS, HT 63 IN, BMI 41.45 INDEX, BP 137/77 MM HG, HR 88 /MIN, RR 18 /MIN, TEMP 98.3 F, OXYGEN SAT % 100, NA INITIALS AW 1413, REVIEWED BY: JENNIFER. EXAMINATION GENERAL EXAMINATION: PSYCHALERT , ORIENTED X 3 , APPROPRIATE MOOD AND AFFECT , GOOD EYE CONTACT. LUNGS:CLEAR TO AUSCULTATION BILATERALLY. HEART:HEART RATE REGULAR, RAPID. MUSCULOSKELETAL:MUSCLE STRENGTH TESTING 5/5 BILATERAL UPPER AND LOWER EXTREMITIES, TRIGGER POINTS:, ELICITED WITH PALPATION OVER LUMBAR PARAVERTEBRAL MUSCLES AND INTO THE SECRUM. RESTRICTION OF ROM IN THIS AREA. ASSESSMENTS MYALGIA - M79.1 (PRIMARY) LUMBAR DISC DISPLACEMENT WITHOUT MYELOPATHY - M51.26 FIBROMYALGIA - M79.7 USE OF OPIATES FOR THERAPEUTIC PURPOSES - Z79.891 TREATMENT MYALGIA REFILL OXYCODONE HCL TABLET, 5 MG, 1 TABLET, ORALLY, EVERY 8-12 HRS MDD=2, 30 DAY(S), 60, REFILLS 0 START NAPROXEN TABLET, 500 MG, 1 TABLET NEEDED, ORALLY, EVERY 12 HRS, 30 DAY(S), 60 TABLET, REFILLS 1 NOTES: REFER TO NEUROLOGY FOR NERVE CONDUCTION STUDY TO BILATERAL UPPER EXTREMITIES. CLINICAL NOTES: ISTOP REGISTRY REVIEWED AND DEMNOSTRATES COMPLLIANCE.. RECENT URINE TOXICOLOGY REVIEWED. NO UNAUTHORIZED MEDICATIONS. NO ILLICIT SUBSTANCES AND PRESCRIBED MEDICATIONS WERE PRESENT. STATES IS RUNNING OUT OF HER MEDS EARLY SHE FEELS HER DOSE IS NOT ADEQUETE. I DID TELL HER THAT I WILL NOT BE INCREASING HER MOPIATE PAIN MED AND THAT CONTINUED NOT TAKING S DIRECTED WILL BE CAUSE FOR DISCONTINUING THE MED. PROCEDURE CODES FA211 ESTABILISHED PATIENT [facility] CHARGE DISPOSITION & COMMUNICATION FOLLOW UP April (REASON: BACK PAIN) ELECTRONICALLY SIGNED BY ELPIDIO ARAGON ON 03/02/2017 AT 06:57 PM EDT DISCLAIMER : THIS IS A VISIT SUMMARY EXTRACTED FROM THE [employer] CHART. IT IS NOT A COPY OF THE [employer] PROGRESS NOTE. MIMI
== END ==
LOC: M PAIN 13:30
PROVIDERS: ATTEND Nurse Practitioner Family
DX: G89.29 Other chronic pain (principal); M51.26 Other intervertebral disc displacement, lumbar region; M79.7 Fibromyalgia; K21.9 Gastro-esophageal reflux disease without esophagitis; F32.9 Major depressive disorder, single episode, unspecified; F41.9 Anxiety disorder, unspecified; F43.10 Post-traumatic stress disorder, unspecified; F84.5 Asperger's syndrome; F60.3 Borderline personality disorder; E55.9 Vitamin D deficiency, unspecified; E03.9 Hypothyroidism, unspecified; E66.01 Morbid (severe) obesity due to excess calories; D50.8 Other iron deficiency anemias; Z79.1 Long term (current) use of non-steroidal anti-inflammatories (NSAID); Z79.891 Long term (current) use of opiate analgesic; Z79.899 Other long term (current) drug therapy; Z88.5 Allergy status to narcotic agent; Z88.8 Allergy status to other drugs, medicaments and biological substances; Z68.41 Body mass index [BMI] 40.0-44.9, adult

== ENCOUNTER → 2017-03-21 | Outpatient (CLI) | payer OTHER ==
--- NOTE | 2017-03-21 13:31 | REP ---
Thyroid ultrasound: Comparisons are 04/29/2012 and 12/19/2016. There is a complex nodule in the lower pole of the right lobe today measuring 5.1 mm (4 mm of 12/19/2016 and 8 mm on 04/29/2012). There is a 1.7 mm cyst anteriorly in the right thyroid lobe today, not present previously. There are no nodules or cysts in the left lobe. This is unchanged. The thyroid right lobe measures 3.6 x 1.3 x 1.0 cm. The thyroid left lobe measures 3.9 x 1.3 x 1.1 cm. The isthmus measures 3.7 mm thickness. These measurements are not significantly changed from the prior study and are in the normal range. Impression: There is a complex nodule in the lower pole of the right lobe. There is a small cyst anteriorly in the right lobe. Signed by Paulo Gasca MD 03/21/2017 01:22 P
== END ==
LOC: M RAD 12:33
PROVIDERS: ATTEND Family Medicine
DX: E04.9 Nontoxic goiter, unspecified (principal)

== ENCOUNTER → 2017-06-12 | Outpatient (CLI) | payer OTHER | LOC: M PAIN 14:00 | DX: G89.4 Chronic pain syndrome (principal); M51.26 Other intervertebral disc displacement, lumbar region; M79.7 Fibromyalgia; K21.9 Gastro-esophageal reflux disease without esophagitis; F32.9 Major depressive disorder, single episode, unspecified; F41.9 Anxiety disorder, unspecified; F43.10 Post-traumatic stress disorder, unspecified; F60.3 Borderline personality disorder; F84.0 Autistic disorder; Z86.711 Personal history of pulmonary embolism; G62.9 Polyneuropathy, unspecified; E55.9 Vitamin D deficiency, unspecified; E03.9 Hypothyroidism, unspecified; E66.01 Morbid (severe) obesity due to excess calories; D50.9 Iron deficiency anemia, unspecified; R42 Dizziness and giddiness; Z79.891 Long term (current) use of opiate analgesic; Z79.899 Other long term (current) drug therapy; Z88.5 Allergy status to narcotic agent; Z88.8 Allergy status to other drugs, medicaments and biological substances; Z68.41 Body mass index [BMI] 40.0-44.9, adult | CPT/HCPCS: G0463 ==

== ENCOUNTER → 2017-06-27 | Outpatient (CLI) | payer OTHER ==
[~2017-06-27] MED LIST changes: -/FAMO2TA PO; -/LAMO15TA PO; -/ONDA4TA PO; -ABIL10TA9; -ACET50TA PO; -AMIT25TA PO; -BUSP15TA47; -CALC600T7 PO; -CARA1TAB2 PO; -CLON1TAB PO; -DIPH50CA PO; -DULO1CAP2; -FENT12PA TOP; -FERR325T3 PO; -FISHCAP PO; -FOLI1TAB4 PO; -FOLI5INJ2 PO; -GABA-282; -GABA-282 PO; -GABA-283 PO; -GABA300C2 PO; -HYDR-3713 PO; -HYDR-3719 PO; +ISOVUE-M 300 61% 15ML VIAL (Q9967) As Ordered; -KLON0.5T PO; -LAMI1TAB8 PO; -LAMI25TA PO; -LAMI50TA PO; -LASI20TA PO; -LEVO50TA5; -LEVO75TA3 PO; -LEVO75TA4 PO; +LIDOCAINE 1% SDV INJ 30 ML VIAL As Ordered; -MIRA3350 PO; -MORP-38 PO; -MORP1CAP48 PO; -MORP30TA2 PO; -OMEP40CA2 PO; -OXYC-517 PO; -OXYC1SOL3 PO; -OXYC5CAP28 PO; -POTA10IN2 PO; -PRIS100T PO; -ROBA750T4 PO; -SYSTSOL5 OU; -TIZA2TA; -TOPA50TA PO; -TOPI50TA9 PO; -TYLE325T5 PO; -VENL75CA PO; -VENL75CA47 PO; -VITA200015; -VITA200015 PO; -VITA200016 PO; -VITA200C10 PO; -VITA250L PO; -VITA400T15 PO; -VITA500T53 PO; -WELLTAB4 PO; -[UNRECOGNIZED DRUG - CODE] PO; -[UNRECOGNIZED DRUG - CODE] PO; -[UNRECOGNIZED DRUG - OTHER] PO; -[UNRECOGNIZED DRUG - OTHER] PO; +diazePAM 5 MG TAB As Ordered; +methylPREDNISolone SUSP 40 MG/ML (DEPO-medrol) VIAL (J1030) As Ordered; +oxyCODONE 5MG TAB As Ordered; -pericolace PO
== END ==
LOC: M PAIN 10:30
DX: G89.29 Other chronic pain (principal); M51.16 Intervertebral disc disorders with radiculopathy, lumbar region; F41.9 Anxiety disorder, unspecified; F32.9 Major depressive disorder, single episode, unspecified; F43.10 Post-traumatic stress disorder, unspecified; F84.5 Asperger's syndrome; E55.9 Vitamin D deficiency, unspecified; D50.9 Iron deficiency anemia, unspecified; E03.9 Hypothyroidism, unspecified; E66.01 Morbid (severe) obesity due to excess calories; Z68.42 Body mass index [BMI] 45.0-49.9, adult; H81.49 Vertigo of central origin, unspecified ear; Z88.5 Allergy status to narcotic agent; Z88.8 Allergy status to other drugs, medicaments and biological substances; Z79.891 Long term (current) use of opiate analgesic; Z79.899 Other long term (current) drug therapy
CPT/HCPCS: J1030

== ENCOUNTER → 2017-07-27 | Outpatient (CLI) | payer OTHER | LOC: M PAIN 11:30 | DX: M79.1 Myalgia (principal); G89.4 Chronic pain syndrome; M51.26 Other intervertebral disc displacement, lumbar region; E03.9 Hypothyroidism, unspecified; D50.9 Iron deficiency anemia, unspecified; E55.9 Vitamin D deficiency, unspecified; Z79.891 Long term (current) use of opiate analgesic; Z79.899 Other long term (current) drug therapy; Z88.8 Allergy status to other drugs, medicaments and biological substances | CPT/HCPCS: G0463 ==

== ENCOUNTER → 2017-09-21 | Outpatient (CLI) | payer OTHER | LOC: M PAIN 11:00 | DX: M79.1 Myalgia (principal); G89.4 Chronic pain syndrome; M51.26 Other intervertebral disc displacement, lumbar region; K21.9 Gastro-esophageal reflux disease without esophagitis; F32.9 Major depressive disorder, single episode, unspecified; F41.9 Anxiety disorder, unspecified; F43.10 Post-traumatic stress disorder, unspecified; F84.5 Asperger's syndrome; E03.9 Hypothyroidism, unspecified; E61.1 Iron deficiency; H81.10 Benign paroxysmal vertigo, unspecified ear; E66.01 Morbid (severe) obesity due to excess calories; Z68.42 Body mass index [BMI] 45.0-49.9, adult; Z79.891 Long term (current) use of opiate analgesic; Z79.899 Other long term (current) drug therapy; Z88.5 Allergy status to narcotic agent; Z88.8 Allergy status to other drugs, medicaments and biological substances | CPT/HCPCS: G0463 ==

== ENCOUNTER → 2017-11-02 | Outpatient (REF) | payer OTHER ==
[2017-11-02 18:20] LABS: BASO # 0.1 10^3/uL (0.0-0.2); BASO % 0.7 % (0.0-1.0); EOS # 0.1 10^3/uL (0.0-0.50); EOS % 0.8 % (0.0-3.0); HEMATOCRIT 39.6 % (36.0-47.0); IMMATURE GRANULOCYTE % 0.3 % (0-3.0); LYMPH # 1.7 10^3/uL (1.5-4.5); LYMPH % 16.7 % (24.0-44.0); MEAN CORPUSCULAR HEMOGLOBIN 31.1 pg (27.0-33.0); MEAN CORPUSCULAR HGB CONC 32.8 g/dl (32.0-36.5); MEAN CORPUSCULAR VOLUME 94.7 fl (80.0-96.0); MONO # 0.5 10^3/uL (0.0-0.8); MONO % 5.3 % (0.0-5.0); NEUTROPHILS # 7.7 10^3/uL (1.8-7.7); NEUTROPHILS % 76.2 % (36.0-66.0); PLATELET COUNT, AUTOMATED 343 10^3/uL (150-450); RED BLOOD COUNT 4.18 10^6/uL (4.00-5.40); RED CELL DISTRIBUTION WIDTH 12.5 % (11.5-14.5); WHITE BLOOD COUNT 10.2 10^3/uL (4.0-10.0)
[2017-11-02 18:20] LABS: HEMATOCRIT 39.2 % (36.0-47.0)
[2017-11-02 18:33] LABS: D-DIMER QUANT 369.2 ng/ml (<500)
[2017-11-02 19:09] LABS: VITAMIN B12 LEVEL 734 PG/ML (247-911)
[2017-11-02 19:18] LABS: ALBUMIN 3.8 GM/DL (3.2-5.2); ALBUMIN/GLOBULIN RATIO 0.97 (1.00-1.93); ALKALINE PHOSPHATASE 100 U/L (45-117); ALT/SGPT 19 U/L (12-78); ANION GAP 5 MEQ/L (8-16); AST/SGOT 16 U/L (7-37); BILIRUBIN,TOTAL 0.3 MG/DL (0.2-1.0); BLOOD UREA NITROGEN 12 MG/DL (7-18); CALCIUM LEVEL 8.9 MG/DL (8.5-10.1); CARBON DIOXIDE LEVEL 28 MEQ/L (21-32); CHLORIDE LEVEL 109 MEQ/L (98-107); CREATININE FOR GFR 0.94 MG/DL (0.55-1.30); FERRITIN 70 NG/ML (8-252); GLOMERULAR FILTRATION RATE > 60.0 (>60); GLUCOSE, FASTING 75 MG/DL (70-100); IRON (FE) 35 UG/DL (50-170); MAGNESIUM LEVEL 2.1 MG/DL (1.8-2.4); PERCENT SATURATION 10.8 % (13.2-45.0); PHOSPHORUS LEVEL 3.7 MG/DL (2.5-4.9); POTASSIUM SERUM 4.6 MEQ/L (3.5-5.1); SODIUM LEVEL 142 MEQ/L (136-145); TOTAL IRON BINDING CAPACITY 324 UG/DL (250-450); TOTAL PROTEIN 7.7 GM/DL (6.4-8.2)
[2017-11-06 11:05] LABS: PRETREATED FOLATE FOR RBCFOL 7.7 NG/ML; RBC FOLATE 412.5 NG/ML (280-791)
== END ==
LOC: M SFHCPLAZ 16:13
DX: K91.2 Postsurgical malabsorption, not elsewhere classified (principal); R07.89 Other chest pain; E03.9 Hypothyroidism, unspecified; E55.9 Vitamin D deficiency, unspecified

== ENCOUNTER 2017-11-08 16:08 | Inpatient (IN) | payer MEDICAID, OTHER ==
[2017-11-08 17:27] LABS: HEMATOCRIT 39.2 % (36.0-47.0); HEMOGLOBIN 12.8 g/dl (12.0-15.5); MEAN CORPUSCULAR HEMOGLOBIN 30.6 pg (27.0-33.0); MEAN CORPUSCULAR HGB CONC 32.7 g/dl (32.0-36.5); MEAN CORPUSCULAR VOLUME 93.8 fl (80.0-96.0); PLATELET COUNT, AUTOMATED 331 10^3/uL (150-450); RED BLOOD COUNT 4.18 10^6/uL (4.00-5.40); RED CELL DISTRIBUTION WIDTH 12.2 % (11.5-14.5); WHITE BLOOD COUNT 7.5 10^3/uL (4.0-10.0)
[2017-11-08 17:46] LABS: CONTROL LINE HCG INT CTR LINE PRESENT; HCG, SERUM QUALITATIVE NEGATIVE (NEGATIVE)
[2017-11-08 18:03] LABS: ACETAMINOPHEN LEVEL < 2.0 UG/ML (10.0-30.0); ALBUMIN 3.5 GM/DL (3.2-5.2); ALBUMIN/GLOBULIN RATIO 1.03 (1.00-1.93); ALKALINE PHOSPHATASE 91 U/L (45-117); ALT/SGPT 17 U/L (12-78); ANION GAP 7 MEQ/L (8-16); AST/SGOT 14 U/L (7-37); BILIRUBIN,DIRECT 0.1 MG/DL (0.0-0.2); BILIRUBIN,TOTAL 0.4 MG/DL (0.2-1.0); BLOOD UREA NITROGEN 11 MG/DL (7-18); CALCIUM LEVEL 8.9 MG/DL (8.5-10.1); CARBON DIOXIDE LEVEL 27 MEQ/L (21-32); CHLORIDE LEVEL 108 MEQ/L (98-107); CREATININE FOR GFR 0.82 MG/DL (0.55-1.30); ETHYL ALCOHOL (ETHANOL) 0.003 % (0.000-0.010); GLOMERULAR FILTRATION RATE > 60.0 (>60); GLUCOSE, FASTING 85 MG/DL (70-100); POTASSIUM SERUM 4.5 MEQ/L (3.5-5.1); SALICYLATE LEVEL < 1.7 MG/DL (5.0-30.0); SODIUM LEVEL 142 MEQ/L (136-145); TOTAL PROTEIN 6.9 GM/DL (6.4-8.2)
[2017-11-08 18:13] LABS: AMPHETAMINES LEVEL URINE NEGATIVE (NEGATIVE); BARBITURATES URINE NEGATIVE (NEGATIVE); BENZODIAZEPINES URINE NEGATIVE (NEGATIVE); CANNABINOIDS URINE NEGATIVE (NEGATIVE); COCAINE METABOLITE URINE NEGATIVE (NEGATIVE); METHADONE URINE NEGATIVE (NEGATIVE); OPIATES URINE NEGATIVE (NEGATIVE); PHENCYCLIDINE URINE NEGATIVE (NEGATIVE)
[2017-11-08] MEDS ORDERED: MOM 30ML SUSPENSION UDC PO (18:45)
[2017-11-08] MEDS ORDERED: MAALOX 30 ML SUSP *UDC PO (18:45)
[2017-11-08] MEDS: traZODone 50 MG TAB PO (21:14)
[2017-11-09] MEDS ORDERED: diphenhydrAMINE CREAM 30GM TOP (08:45)
[2017-11-09] MEDS ORDERED: MIRALAX *UNIT DOSE* 17GM PACKET PO (09:00)
[2017-11-09] MEDS: OMEPRAZOLE 20 MG CAP PO (09:48)
[2017-11-09] MEDS: LEVOTHYROXINE 50MCG TABLET (0.05MG) PO (09:48)
[2017-11-09] MEDS: GABAPENTIN 300 MG CAP PO ×3 (10:23→22:15)
[2017-11-09] MEDS ORDERED: tiZANidine 4 MG TAB PO (11:00)
[2017-11-09] MEDS: VITAMIN D 1,000 INTERNATIONAL UNITS TABLET PO (11:31)
[2017-11-09] MEDS: DULoxetine 30 MG CAP (CYMBALTA) PO (11:31)
[2017-11-09] MEDS: oxyCODONE 5MG TAB PO ×2 (11:33→19:53)
[2017-11-09] MEDS ORDERED: GABAPENTIN 300 MG CAP PO (16:00)
[2017-11-09] MEDS: tiZANidine 4 MG TAB PO (19:13)
[2017-11-09] MEDS: traZODone 50 MG TAB PO (22:15)
[2017-11-10] MEDS: oxyCODONE 5MG TAB PO ×4 (06:09→22:23)
[2017-11-10] MEDS: ACETAMINOPHEN TAB 650MG DOSE (2X325MG) PO ×2 (06:10→14:17)
[2017-11-10] MEDS: LEVOTHYROXINE 50MCG TABLET (0.05MG) PO (06:11)
[2017-11-10] MEDS: OMEPRAZOLE 20 MG CAP PO (08:10)
[2017-11-10] MEDS: DULoxetine 30 MG CAP (CYMBALTA) PO (08:11)
[2017-11-10] MEDS: VITAMIN D 1,000 INTERNATIONAL UNITS TABLET PO (08:11)
[2017-11-10] MEDS: GABAPENTIN 300 MG CAP PO ×3 (08:11→21:08)
[2017-11-10] MEDS: PILL CRUSHER/CUTTER 1 EACH XX (21:11)
[2017-11-11] MEDS: LEVOTHYROXINE 50MCG TABLET (0.05MG) PO (06:15)
[2017-11-11] MEDS: oxyCODONE 5MG TAB PO ×3 (06:30→22:53)
[2017-11-11] MEDS: OMEPRAZOLE 20 MG CAP PO (08:11)
[2017-11-11] MEDS: GABAPENTIN 300 MG CAP PO ×3 (08:11→20:58)
[2017-11-11] MEDS: DULoxetine 30 MG CAP (CYMBALTA) PO (08:11)
[2017-11-11] MEDS: VITAMIN D 1,000 INTERNATIONAL UNITS TABLET PO (08:11)
[2017-11-11] MEDS: ACETAMINOPHEN TAB 650MG DOSE (2X325MG) PO ×2 (14:46→22:53)
[2017-11-11] MEDS: PILL CRUSHER/CUTTER 1 EACH XX (20:59)
[2017-11-12] MEDS: LEVOTHYROXINE 50MCG TABLET (0.05MG) PO (06:14)
[2017-11-12] MEDS: ACETAMINOPHEN TAB 650MG DOSE (2X325MG) PO ×3 (07:04→23:10)
[2017-11-12] MEDS: oxyCODONE 5MG TAB PO ×3 (07:04→23:09)
[2017-11-12] MEDS: GABAPENTIN 300 MG CAP PO ×3 (08:37→21:24)
[2017-11-12] MEDS: OMEPRAZOLE 20 MG CAP PO (08:38)
[2017-11-12] MEDS: VITAMIN D 1,000 INTERNATIONAL UNITS TABLET PO (08:38)
[2017-11-12] MEDS: PILL CRUSHER/CUTTER 1 EACH XX ×2 (08:38→11:47)
[2017-11-12] MEDS: DULoxetine 30 MG CAP (CYMBALTA) PO (08:38)
[2017-11-12] MEDS: buPROPion **XL** TABLET 150MG (WELLBUTRIN XL) PO (11:47)
[2017-11-13] MEDS: LEVOTHYROXINE 50MCG TABLET (0.05MG) PO (06:12)
[2017-11-13] MEDS: oxyCODONE 5MG TAB PO ×3 (07:07→23:02)
[2017-11-13] MEDS: ACETAMINOPHEN TAB 650MG DOSE (2X325MG) PO ×3 (07:09→23:02)
[2017-11-13] MEDS: DULoxetine 30 MG CAP (CYMBALTA) PO (08:29)
[2017-11-13] MEDS: buPROPion **XL** TABLET 150MG (WELLBUTRIN XL) PO (08:29)
[2017-11-13] MEDS: OMEPRAZOLE 20 MG CAP PO (08:29)
[2017-11-13] MEDS: VITAMIN D 1,000 INTERNATIONAL UNITS TABLET PO (08:29)
[2017-11-13] MEDS: GABAPENTIN 300 MG CAP PO ×3 (08:29→20:07)
[2017-11-13] MEDS: buPROPion 75 MG TAB PO (20:07)
[2017-11-14] MEDS: OLANZapine 5 MG TAB PO (00:52)
[2017-11-14] MEDS: LEVOTHYROXINE 50MCG TABLET (0.05MG) PO (06:07)
[2017-11-14] MEDS: ACETAMINOPHEN TAB 650MG DOSE (2X325MG) PO (07:53)
[2017-11-14] MEDS: oxyCODONE 5MG TAB PO (07:53)
[2017-11-14] MEDS: OMEPRAZOLE 20 MG CAP PO (09:23)
[2017-11-14] MEDS: DULoxetine 30 MG CAP (CYMBALTA) PO (09:23)
[2017-11-14] MEDS: VITAMIN D 1,000 INTERNATIONAL UNITS TABLET PO (09:23)
[2017-11-14] MEDS: GABAPENTIN 300 MG CAP PO (09:23)
[2017-11-14] MEDS: buPROPion 75 MG TAB PO (09:48)
== END 2017-11-14 12:00 | disposition home or self-care (01) | DRG 885 ==
LOC: M ED 16:08 → M ED INP 18:44 → M PSY 19:27
DX: F33.9 Major depressive disorder, recurrent, unspecified (principal); Z68.42 Body mass index [BMI] 45.0-49.9, adult; F41.9 Anxiety disorder, unspecified; F60.3 Borderline personality disorder; F42.4 Excoriation (skin-picking) disorder; G89.29 Other chronic pain; K21.9 Gastro-esophageal reflux disease without esophagitis; K59.09 Other constipation; E03.9 Hypothyroidism, unspecified; E66.9 Obesity, unspecified; Z98.84 Bariatric surgery status; Z79.899 Other long term (current) drug therapy; Z88.8 Allergy status to other drugs, medicaments and biological substances

== ENCOUNTER → 2017-11-21 | Outpatient (CLI) | payer OTHER | LOC: M RAD 12:28 | DX: M25.562 Pain in left knee (principal); M25.561 Pain in right knee | CPT/HCPCS: 73564 ==

== ENCOUNTER → 2017-11-21 | Outpatient (CLI) | payer OTHER | LOC: M PAIN 11:30 | DX: M79.1 Myalgia (principal); G89.4 Chronic pain syndrome; M51.26 Other intervertebral disc displacement, lumbar region; M25.562 Pain in left knee; M25.561 Pain in right knee; F84.5 Asperger's syndrome; K21.9 Gastro-esophageal reflux disease without esophagitis; F32.9 Major depressive disorder, single episode, unspecified; F41.9 Anxiety disorder, unspecified; F43.10 Post-traumatic stress disorder, unspecified; E55.9 Vitamin D deficiency, unspecified; E03.9 Hypothyroidism, unspecified; E61.1 Iron deficiency; E66.01 Morbid (severe) obesity due to excess calories; Z68.42 Body mass index [BMI] 45.0-49.9, adult; Z79.891 Long term (current) use of opiate analgesic; Z79.899 Other long term (current) drug therapy; Z88.5 Allergy status to narcotic agent; Z88.8 Allergy status to other drugs, medicaments and biological substances; Z86.69 Personal history of other diseases of the nervous system and sense organs; Z98.84 Bariatric surgery status | CPT/HCPCS: G0463 ==

== ENCOUNTER → 2017-12-19 | Outpatient (REF) | payer OTHER ==
[2017-12-19 17:07] LABS: HIV 1&2 SCREEN CENTAUR NEGATIVE (NEGATIVE)
[2017-12-19 17:16] LABS: CHLAMYDIA DNA AMPLIFICATION NEGATIVE (NEGATIVE); GC DNA AMPLIFICATION NEGATIVE (NEGATIVE)
[2017-12-19 21:32] LABS: CHLAMYDIA DNA AMPLIFICATION NEGATIVE (NEGATIVE); GC DNA AMPLIFICATION NEGATIVE (NEGATIVE)
[2017-12-22 15:28] LABS: HPV HYBRID CAPTURE II Negative (Negative)
== END ==
LOC: M SFHCPLAZ 14:20
DX: Z11.3 Encounter for screening for infections with a predominantly sexual mode of transmission (principal); Z12.4 Encounter for screening for malignant neoplasm of cervix

== ENCOUNTER → 2018-02-01 | Outpatient (CLI) | payer OTHER | LOC: M PAIN 11:45 | DX: M79.1 Myalgia (principal); M51.26 Other intervertebral disc displacement, lumbar region; K21.9 Gastro-esophageal reflux disease without esophagitis; F32.9 Major depressive disorder, single episode, unspecified; F41.9 Anxiety disorder, unspecified; F43.10 Post-traumatic stress disorder, unspecified; F84.5 Asperger's syndrome; E55.9 Vitamin D deficiency, unspecified; E07.9 Disorder of thyroid, unspecified; D50.8 Other iron deficiency anemias; Z79.891 Long term (current) use of opiate analgesic; Z79.899 Other long term (current) drug therapy; E66.01 Morbid (severe) obesity due to excess calories; Z68.42 Body mass index [BMI] 45.0-49.9, adult; Z88.5 Allergy status to narcotic agent; Z88.8 Allergy status to other drugs, medicaments and biological substances; Z86.69 Personal history of other diseases of the nervous system and sense organs | CPT/HCPCS: G0463 ==

== ENCOUNTER → 2018-02-11 | Outpatient (REF) | payer OTHER | LOC: M SFHCWAGY 14:01 | DX: R87.610 Atypical squamous cells of undetermined significance on cytologic smear of cervix (ASC-US) (principal); Z86.19 Personal history of other infectious and parasitic diseases ==

== ENCOUNTER → 2018-03-19 | Outpatient (REF) | payer OTHER ==
[2018-03-19 17:45] LABS: FREE T4 0.87 NG/DL (0.76-1.46)
== END ==
LOC: M SFHCPLAZ 14:52
DX: E03.9 Hypothyroidism, unspecified (principal)

== ENCOUNTER → 2018-03-25 | Outpatient (CLI) | payer OTHER | LOC: M RAD 09:02 | DX: E04.1 Nontoxic single thyroid nodule (principal) | CPT/HCPCS: 76536 ==

== ENCOUNTER 2018-04-29 18:30 | Emergency (ER) | payer OTHER ==
[2018-04-29 19:22] LABS: HEMATOCRIT 41.8 % (36.0-47.0); HEMOGLOBIN 13.3 g/dl (12.0-15.5); MEAN CORPUSCULAR HEMOGLOBIN 30.8 pg (27.0-33.0); MEAN CORPUSCULAR HGB CONC 31.8 g/dl (32.0-36.5); MEAN CORPUSCULAR VOLUME 96.8 fl (80.0-96.0); PLATELET COUNT, AUTOMATED 418 10^3/uL (150-450); RED BLOOD COUNT 4.32 10^6/uL (4.00-5.40); RED CELL DISTRIBUTION WIDTH 12.7 % (11.5-14.5); WHITE BLOOD COUNT 14.1 10^3/uL (4.0-10.0)
[2018-04-29 19:37] LABS: CONTROL LINE HCG INT CTR LINE PRESENT; HCG, SERUM QUALITATIVE NEGATIVE (NEGATIVE)
[2018-04-29 19:50] LABS: AMPHETAMINES LEVEL URINE NEGATIVE (NEGATIVE); BARBITURATES URINE NEGATIVE (NEGATIVE); BENZODIAZEPINES URINE NEGATIVE (NEGATIVE); CANNABINOIDS URINE NEGATIVE (NEGATIVE); COCAINE METABOLITE URINE NEGATIVE (NEGATIVE); METHADONE URINE NEGATIVE (NEGATIVE); OPIATES URINE NEGATIVE (NEGATIVE); PHENCYCLIDINE URINE NEGATIVE (NEGATIVE)
[2018-04-29 19:56] LABS: ACETAMINOPHEN LEVEL < 2.0 UG/ML (10.0-30.0); ALBUMIN 3.9 GM/DL (3.2-5.2); ALBUMIN/GLOBULIN RATIO 1.11 (1.00-1.93); ALKALINE PHOSPHATASE 119 U/L (45-117); ALT/SGPT 17 U/L (12-78); ANION GAP 5 MEQ/L (8-16); AST/SGOT 14 U/L (7-37); BILIRUBIN,DIRECT < 0.1 MG/DL (0.0-0.2); BILIRUBIN,TOTAL 0.3 MG/DL (0.2-1.0); BLOOD UREA NITROGEN 13 MG/DL (7-18); CALCIUM LEVEL 8.7 MG/DL (8.5-10.1); CARBON DIOXIDE LEVEL 27 MEQ/L (21-32); CHLORIDE LEVEL 105 MEQ/L (98-107); CREATININE FOR GFR 0.86 MG/DL (0.55-1.30); ETHYL ALCOHOL (ETHANOL) < 0.003 % (0.000-0.010); GLOMERULAR FILTRATION RATE > 60.0 (>60); GLUCOSE, FASTING 85 MG/DL (70-100); POTASSIUM SERUM 3.9 MEQ/L (3.5-5.1); SALICYLATE LEVEL < 1.7 MG/DL (5.0-30.0); SODIUM LEVEL 137 MEQ/L (136-145); TOTAL PROTEIN 7.4 GM/DL (6.4-8.2)
== END 2018-04-29 21:56 | disposition home or self-care (01) ==
LOC: M ED 18:30
DX: F43.0 Acute stress reaction (principal); F32.9 Major depressive disorder, single episode, unspecified; F41.1 Generalized anxiety disorder; F12.10 Cannabis abuse, uncomplicated; Z79.899 Other long term (current) drug therapy; Z88.8 Allergy status to other drugs, medicaments and biological substances; Z88.5 Allergy status to narcotic agent
CPT/HCPCS: 80320

== ENCOUNTER → 2018-08-03 | Outpatient (CLI) | payer OTHER ==
[~2018-08-03] MED LIST changes: +/FAMO2TA PO; +/LAMO15TA PO; +/ONDA4TA PO; +ABIL10TA9; +ABIL10TA9 PO; +ACET50TA PO; +AMIT25TA PO; +ARIP5TA PO; +BUPR150T5 PO; +BUSP10TA; +BUSP15TA47; +CALC600T7 PO; +CARA1TAB2 PO; +CLON1TAB PO; +DIPH50CA PO; +DULO1CAP2; +FENT12PA TOP; +FERR325T3 PO; +FISHCAP PO; +FOLI1TAB11 PO; +FOLI5INJ2 PO; +GABA-843; +GABA-843 PO; +GABA-845 PO; +GABA300C2 PO; +GABA600T4 PO; +HYDR-3713 PO; +HYDR-3719 PO; +HYDR50TA70; -ISOVUE-M 300 61% 15ML VIAL (Q9967) As Ordered; +KLON0.5T PO; +LAMI1TAB8 PO; +LAMI25TA PO; +LAMI50TA PO; +LASI20TA PO; +LEVO50TA5; +LEVO75TA3 PO; +LEVO75TA4 PO; -LIDOCAINE 1% SDV INJ 30 ML VIAL As Ordered; +MIRA3350 PO; +MORP-38 PO; +MORP1CAP48 PO; +MORP30TA2 PO; +NAPR-855 PO; +OMEP40CA2 PO; +OXYC-517 PO; +OXYC1SOL3 PO; +OXYC5CAP28 PO; +POTA10IN2 PO; +PRIS100T PO; +ROBA750T4 PO; +SYSTSOL5 OU; +TIZA2TA; +TOPA50TA PO; +TOPI50TA9 PO; +TYLE325T5 PO; +VENL75CA PO; +VENL75CA47 PO; +VITA200015; +VITA200015 PO; +VITA200016 PO; +VITA200C10 PO; +VITA250L PO; +VITA400T15 PO; +VITA500T53 PO; +WELLTAB4 PO; +[UNRECOGNIZED DRUG - CODE] PO; +[UNRECOGNIZED DRUG - CODE] PO; +[UNRECOGNIZED DRUG - OTHER] PO; +[UNRECOGNIZED DRUG - OTHER] PO; -diazePAM 5 MG TAB As Ordered; -methylPREDNISolone SUSP 40 MG/ML (DEPO-medrol) VIAL (J1030) As Ordered; -oxyCODONE 5MG TAB As Ordered; +pericolace PO
--- NOTE | 2018-08-05 09:34 | REP ---
MRI LUMBAR SPINE WITHOUT CONTRAST: HISTORY: Radiculopathy. COMPARISON: 06/01/2012. Decreased signal intensity on T2-weighted images is present in the L4-5 and L5-S1 intervertebral discs. The discs are decreased in height. These findings are consistent with disc degeneration. A diffuse disc bulge is present at the L1-2 level. There is minimal compression of the thecal sac. The L1 nerves exit the neural foramina without compression. A diffuse disc bulge is present at the L2-3 level. There is minimal compression of the thecal sac. There is hypertrophy of the posterior articulating facets. The L2 nerves exit the neural foramina without compression. A diffuse disc bulge is present at the L3-4 level. There is minimal compression of the thecal sac. There is hypertrophy of the posterior articulating facets. The L3 nerves exit the neural foramina without compression. A diffuse disc bulge and small central disc extrusion are present at the L4-5 level. There is hypertrophy of the ligamenta flava and posterior articulating facets. These findings produce mild central canal stenosis. The L4 nerves exit the neural foramina without compression. A diffuse disc bulge is present at the L5-S1 level. There is minimal compression of the thecal sac. There is hypertrophy of the posterior articulating facets. There are 5 mm of grade 1 spondylolisthesis of L5 on S1. There is compression of the L5 nerves in the neural foramina. The conus medullaris is normal in appearance terminating at the level of the L1 vertebral body. Normal signal intensity is present in the lumbar vertebral bodies. IMPRESSION: 1. Diffuse disc bulges at the L1-2 through L3-4 levels with minimal thecal sac compression. The disc bulges at the L1-2 and L2-3 levels are new. 2. Mild central canal stenosis at the L4-5 level secondary to disc bulge, disc extrusion, ligamentous and facet hypertrophy. The canal stenosis is a new finding. 3. Diffuse disc bulge at the L5-S1 level with minimal thecal sac compression. There is grade 1 spondylolisthesis of L5 on S1. There is compression of the L5 nerves in the neural foramina. The spondylolisthesis and right L5 nerve compression are new findings. Electronically Signed by Danie Hutchinson MD 08/05/2018 09:37 A
== END ==
LOC: M RAD 10:03
PROVIDERS: ATTEND Nurse Practitioner Family
DX: M51.36 Other intervertebral disc degeneration, lumbar region (principal)

== ENCOUNTER → 2018-12-24 | Outpatient (REF) | payer OTHER ==
[~2018-12-24] MED LIST changes: -/FAMO2TA PO; -/LAMO15TA PO; -/ONDA4TA PO; -ACET50TA PO; +ARIP1TAB6 PO; -ARIP5TA PO; +FAMO1TAB11 PO; +FENT12DI12 TOP; -FENT12PA TOP; +MAPA500T17 PO; +ONDA-1 PO; +VITA500T17 PO; -VITA500T53 PO
[2018-12-24 19:14] LABS: APPEARANCE, URINE CLEAR (CLEAR); BACTERIA, URINE AUTO NEGATIVE (NEGATIVE); BILIRUBIN, URINE AUTO NEGATIVE (NEGATIVE); BLOOD, URINE BLOOD NEGATIVE (NEGATIVE); COLOR, URINE YELLOW (YELLOW); GLUCOSE, URINE (UA) AUTO NEGATIVE (NEGATIVE); KETONE, URINE AUTO NEGATIVE (NEGATIVE); LEUKOCYTE ESTERASE, URINE AUTO NEGATIVE (NEGATIVE); MUCUS, URINE SMALL (NEGATIVE); NITRITE, URINE AUTO NEGATIVE (NEGATIVE); PROTEIN, URINE AUTO NEGATIVE (NEGATIVE); RBC, URINE AUTO 0 /HPF (0-3); SPECIFIC GRAVITY URINE AUTO 1.011 (1.002-1.035); SQUAMOUS EPITHELIAL CELL UR AU 1 /HPF (0-6); UROBILINOGEN, URINE AUTO 0.2 mg/dL (0.0-2.0); WBC, URINE AUTO 1 /HPF (0-3)
[2018-12-24 23:51] LABS: CHLAMYDIA DNA AMPLIFICATION NEGATIVE (NEGATIVE); GC DNA AMPLIFICATION NEGATIVE (NEGATIVE)
== END ==
LOC: M SFHCPLAZ 15:24
PROVIDERS: ATTEND Family Medicine
DX: N89.8 Other specified noninflammatory disorders of vagina (principal); R35.0 Frequency of micturition

== ENCOUNTER → 2018-12-25 | Outpatient (REF) | payer OTHER ==
[2018-12-27 14:42] LABS: HPV HYBRID CAPTURE II Positive (Negative)
== END ==
LOC: M SFHCPLAZ 13:23
PROVIDERS: ATTEND Family Medicine
DX: R87.610 Atypical squamous cells of undetermined significance on cytologic smear of cervix (ASC-US) (principal)

== ENCOUNTER → 2019-01-16 | Outpatient (REF) | payer OTHER ==
[~2019-01-16] MED LIST changes: -DULO1CAP2; +DULO1CAP5
[2019-01-16 13:31] LABS: BLOOD UREA NITROGEN 4 MG/DL (7-18); CARBON DIOXIDE LEVEL 30 MEQ/L (21-32); CHLORIDE LEVEL 105 MEQ/L (98-107); CREATININE FOR GFR 0.83 MG/DL (0.55-1.30); GLOMERULAR FILTRATION RATE > 60.0 (>60); GLUCOSE, FASTING 80 MG/DL (70-100); POTASSIUM SERUM 4.2 MEQ/L (3.5-5.1); SODIUM LEVEL 141 MEQ/L (136-145)
== END ==
LOC: M SFHCPLAZ 11:51
PROVIDERS: ATTEND Family Medicine
DX: E87.6 Hypokalemia (principal); E83.42 Hypomagnesemia

== ENCOUNTER → 2019-02-03 | Outpatient (REF) | payer OTHER | LOC: M SFHCWAGY 15:58 | PROVIDERS: ATTEND Nurse Practitioner Women's Health | DX: R87.810 Cervical high risk human papillomavirus (HPV) DNA test positive (principal); R87.610 Atypical squamous cells of undetermined significance on cytologic smear of cervix (ASC-US) ==

== ENCOUNTER → 2019-05-26 | Outpatient (REF) | payer OTHER ==
[~2019-05-26] MED LIST changes: -MORP-38 PO; +MORP-69 PO; +OMEP40CA97 PO
[2019-05-26 11:38] LABS: APPEARANCE, URINE CLEAR (CLEAR); BACTERIA, URINE AUTO NEGATIVE (NEGATIVE); BILIRUBIN, URINE AUTO NEGATIVE (NEGATIVE); BLOOD, URINE BLOOD NEGATIVE (NEGATIVE); COLOR, URINE YELLOW (YELLOW); GLUCOSE, URINE (UA) AUTO NEGATIVE (NEGATIVE); KETONE, URINE AUTO NEGATIVE (NEGATIVE); LEUKOCYTE ESTERASE, URINE AUTO NEGATIVE (NEGATIVE); NITRITE, URINE AUTO NEGATIVE (NEGATIVE); PROTEIN, URINE AUTO NEGATIVE (NEGATIVE); RBC, URINE AUTO 1 /HPF (0-3); SQUAMOUS EPITHELIAL CELL UR AU 4 /HPF (0-6); UROBILINOGEN, URINE AUTO 0.2 mg/dL (0.0-2.0); WBC, URINE AUTO 1 /HPF (0-3)
[2019-05-26 12:03] LABS: BLOOD UREA NITROGEN 15 MG/DL (7-18); CALCIUM LEVEL 9.2 MG/DL (8.5-10.1); CARBON DIOXIDE LEVEL 29 MEQ/L (21-32); CHLORIDE LEVEL 104 MEQ/L (98-107); CREATININE FOR GFR 0.87 MG/DL (0.55-1.30); FREE T4 0.69 NG/DL (0.76-1.46); GLOMERULAR FILTRATION RATE > 60.0 (>60); GLUCOSE, FASTING 69 MG/DL (70-100); POTASSIUM SERUM 4.2 MEQ/L (3.5-5.1); SODIUM LEVEL 139 MEQ/L (136-145)
[2019-05-27 14:10] LABS: CREATININE, URINE 68.9 mg/dL (20.0-300.0)
== END ==
LOC: M SFHCPLAZ 09:02
PROVIDERS: ATTEND Family Medicine
DX: E04.1 Nontoxic single thyroid nodule (principal); E87.6 Hypokalemia; R35.0 Frequency of micturition; Z51.81 Encounter for therapeutic drug level monitoring

== ENCOUNTER → 2019-06-03 | Outpatient (CLI) | payer OTHER ==
--- NOTE | 2019-06-03 11:15 | REP ---
THYROID ULTRASOUND: Real-time sonographic evaluation of thyroid performed. Right lobe measures 3.9 x 1.5 x 1.1 cm and left lobe 3.9 x 1.2 x 1.0 cm. There is again a hypoechoic nodule in the mid aspect of the right lobe 5 mm in diameter, unchanged. No new nodule is seen bilaterally. IMPRESSION: Stable 5 mm nodule right lobe of thyroid mid aspect. No new nodule identified. Electronically Signed by Paulo Du MD 06/03/2019 12:03 P
== END ==
LOC: M RAD 10:32
PROVIDERS: ATTEND Family Medicine
DX: E04.1 Nontoxic single thyroid nodule (principal)

== ENCOUNTER → 2019-06-27 | Outpatient (CLI) | payer OTHER ==
[2019-06-27 14:57] LABS: CHOLESTEROL RISK RATIO 2.857 (<5); FREE T4 0.87 NG/DL (0.76-1.46); THYROID STIMULATING HORMONE 3.01 uIU/ML (0.358-3.740)
== END ==
LOC: M LAB 12:56
PROVIDERS: ATTEND Family Medicine
DX: Z13.220 Encounter for screening for lipoid disorders (principal); E03.9 Hypothyroidism, unspecified

== ENCOUNTER → 2019-09-08 | Outpatient (REF) | payer OTHER ==
[~2019-09-08] MED LIST changes: -BUSP15TA47; +BUSP15TA47 PO; -DULO1CAP5; +DULO1CAP5 PO; -LEVO50TA5; +LEVO50TA5 PO; +LITH300C PO; +VITA500079 PO
[2019-09-08 18:09] LABS: APPEARANCE, URINE HAZY (CLEAR); BACTERIA, URINE AUTO 1+ (NEGATIVE); BILIRUBIN, URINE AUTO NEGATIVE (NEGATIVE); BLOOD, URINE BLOOD NEGATIVE (NEGATIVE); COLOR, URINE YELLOW (YELLOW); GLUCOSE, URINE (UA) AUTO NEGATIVE (NEGATIVE); KETONE, URINE AUTO NEGATIVE (NEGATIVE); LEUKOCYTE ESTERASE, URINE AUTO NEGATIVE (NEGATIVE); MUCUS, URINE SMALL (NEGATIVE); NITRITE, URINE AUTO NEGATIVE (NEGATIVE); PROTEIN, URINE AUTO NEGATIVE (NEGATIVE); RBC, URINE AUTO 0 /HPF (0-3); SPECIFIC GRAVITY URINE AUTO 1.018 (1.002-1.035); SQUAMOUS EPITHELIAL CELL UR AU 8 /HPF (0-6); UROBILINOGEN, URINE AUTO 0.2 mg/dL (0.0-2.0); WBC, URINE AUTO 2 /HPF (0-3)
[2019-09-08 18:29] LABS: BLOOD UREA NITROGEN 12 MG/DL (7-18); CALCIUM LEVEL 8.6 MG/DL (8.5-10.1); CARBON DIOXIDE LEVEL 29 MEQ/L (21-32); CHLORIDE LEVEL 106 MEQ/L (98-107); CREATININE FOR GFR 0.76 MG/DL (0.55-1.30); FREE T4 0.93 NG/DL (0.76-1.46); GLOMERULAR FILTRATION RATE > 60.0 (>60); GLUCOSE, FASTING 88 MG/DL (70-100); MAGNESIUM LEVEL 2.3 MG/DL (1.8-2.4); SODIUM LEVEL 139 MEQ/L (136-145)
[2019-09-08 18:30] LABS: TOTAL 25(OH) VITAMIN D 36.6 NG/ML (30.0-100.0)
== END ==
LOC: M SFHCPLAZ 12:10
PROVIDERS: ATTEND Family Medicine
DX: E03.9 Hypothyroidism, unspecified (principal); E87.6 Hypokalemia; E83.42 Hypomagnesemia; E55.9 Vitamin D deficiency, unspecified

== ENCOUNTER → 2019-11-26 | Outpatient (CLI) | payer OTHER ==
--- NOTE | 2019-11-26 10:37 | REP ---
Duplex extremity venous ultrasound: Lower extremity. History: Left leg pain and edema. Question DVT. Findings: The deep veins are anechoic and fully compressible from the groin to the popliteal fossa in the left lower extremity. Color flow imaging is homogeneous. Spectral Doppler interrogation demonstrates intact respiratory variation in flow and normal manual augmentation of flow. There is no evidence of deep vein thrombosis. Exam quality is inhibited somewhat due to patient body habitus. Impression: Negative left lower extremity duplex venous ultrasound. No evidence of deep vein thrombosis. Electronically Signed by Krishan Varghese MD 11/26/2019 10:29 A
== END ==
LOC: M WHC 09:43
PROVIDERS: ATTEND Nurse Practitioner Family
DX: R60.0 Localized edema (principal); M79.605 Pain in left leg

== ENCOUNTER → 2019-11-26 | Outpatient (CLI) | payer OTHER ==
--- NOTE | 2019-11-27 02:43 | REPPI ---
Clinical: Left knee pain Technique: AP, lateral, bilateral oblique and sunrise views left knee . Findings: The osseous structures and joint spaces are intact and normal. There is no evidence for acute fracture or dislocation. No joint effusion is appreciated. Surrounding soft tissues are unremarkable. No subcutaneous emphysema or radiodense foreign body. Impression: Normal age-appropriate left examination. No acute fracture or dislocation. Electronically Signed by Luis Osorio MD 11/27/2019 02:34 A
== END ==
LOC: M PLAIMG 10:18
PROVIDERS: ATTEND Nurse Practitioner Family
DX: M25.562 Pain in left knee (principal)

== ENCOUNTER → 2019-12-08 | Outpatient (CLI) | payer OTHER ==
[~2019-12-08] MED LIST changes: +BUPR75TA99 PO; +REXU1TAB4 PO; +VITAD1000T PO
== END ==
LOC: M LABSMTC 10:03
PROVIDERS: ATTEND Anesthesiology
DX: Z03.818 Encounter for observation for suspected exposure to other biological agents ruled out (principal); Z11.59 Encounter for screening for other viral diseases
CPT/HCPCS: C9803; U0003

== ENCOUNTER → 2019-12-08 | Outpatient (REF) | payer OTHER ==
[2019-12-08 14:14] LABS: BLOOD UREA NITROGEN 15 MG/DL (7-18); CALCIUM LEVEL 8.8 MG/DL (8.5-10.1); CARBON DIOXIDE LEVEL 27 MEQ/L (21-32); CHLORIDE LEVEL 107 MEQ/L (98-107); CREATININE FOR GFR 0.81 MG/DL (0.55-1.30); GLOMERULAR FILTRATION RATE > 60.0 (>60); GLUCOSE, FASTING 53 MG/DL (70-100); POTASSIUM SERUM 4.6 MEQ/L (3.5-5.1); SODIUM LEVEL 140 MEQ/L (136-145)
== END ==
LOC: M SFHCPLAZ 12:16
PROVIDERS: ATTEND Family Medicine
DX: E87.6 Hypokalemia (principal)

== ENCOUNTER 2019-12-11 08:14 | Day surgery (SDC) | payer OTHER ==
[~2019-12-11] VITALS: Ht 160 cm; Wt 143.8 kg
[~2019-12-11 08:14] MED LIST changes: +NS 1,000 ML IV ONE
[2019-12-11] MEDS ORDERED: CETACAINE SPRAY 5GM As Ordered ONE (10:39)
[2019-12-11] MEDS ORDERED: LIDOCAINE 2% 100MG/5ML SDV (FOR ANES.) As Ordered ONE (10:39)
[2019-12-11] MEDS ORDERED: propofoL 200 MG/20 ML VIAL As Ordered ONE ×2 (10:39→10:46)
--- NOTE | 2019-12-11 10:53 | ROOR ---
Patient Name: Karen Mcginnis Procedure Date: 12/11/2019 10:34 AM Date of : 1985 Age: 34 Room: [facility] Gender: Female Note Status: Finalized Procedure: Upper GI endoscopy Indications: Heartburn Providers: Raz JURADO MD Referring MD: Kaylynn Alba MD Requesting Provider: Medicines: Monitored Anesthesia Care Complications: No immediate complications. Procedure: Pre-Anesthesia Assessment: - The heart rate, respiratory rate, oxygen saturations, blood pressure, adequacy of pulmonary ventilation, and response to care were monitored throughout the procedure. The Endoscope was introduced through the mouth, and advanced to the jejunum. The upper GI endoscopy was accomplished without difficulty. The patient tolerated the procedure well. Findings: The examined esophagus was normal. Evidence of a Pedro-en-Y gastrojejunostomy was found. The gastrojejunal anastomosis was characterized by healthy appearing mucosa. This was traversed. The tveqz-ku-iqknhim limb was characterized by healthy appearing mucosa. The exam of the stomach was otherwise normal. The examined jejunum was normal. Impression: - Normal esophagus. - Pedro-en-Y gastrojejunostomy with gastrojejunal anastomosis characterized by healthy appearing mucosa. - Normal examined jejunum. - No specimens collected. Recommendation: - No ibuprofen, naproxen, or other non-steroidal anti-inflammatory drugs. - Follow an antireflux regimen. - Continue present medications.(omeprazole) - Observe patient's clinical course. - Return to referring physician as previously scheduled. Raz Jurado MD Raz JURADO MD 12/11/2019 10:52:42 AM Electronically signed by Raz JURADO MD Number of Addenda: 0 Note Initiated On: 12/11/2019 10:34 AM Estimated Blood Loss: Estimated blood loss: none.
[2019-12-11 11:15] VITALS: BP 140/83
== END 2019-12-11 11:24 | disposition home or self-care (01) ==
LOC: M OPP 08:14
PROVIDERS: ATTEND Internal Medicine Gastroenterology
DX: Z98.0 Intestinal bypass and anastomosis status (principal); R12 Heartburn; Z88.5 Allergy status to narcotic agent; Z88.8 Allergy status to other drugs, medicaments and biological substances; Z98.84 Bariatric surgery status

== ENCOUNTER → 2020-01-09 | Outpatient (REF) | payer OTHER ==
[~2020-01-09] MED LIST changes: +D31000TA2 PO; -NS 1,000 ML IV ONE; -VITAD1000T PO
== END ==
LOC: M SFHCPLAZ 18:09
PROVIDERS: ATTEND Family Medicine
DX: Z12.4 Encounter for screening for malignant neoplasm of cervix (principal); R87.612 Low grade squamous intraepithelial lesion on cytologic smear of cervix (LGSIL)

== ENCOUNTER → 2020-04-12 | Outpatient (REF) | payer OTHER ==
[2020-04-12 15:36] LABS: BASO # 0.1 10^3/uL (0.0-0.2); BASO % 0.9 % (0.0-1.0); EOS # 0.2 10^3/uL (0.0-0.5); EOS % 2.1 % (0.0-3.0); HEMATOCRIT 35.7 % (36.0-47.0); HEMOGLOBIN 10.9 g/dl (12.0-15.5); LYMPH # 1.8 10^3/uL (1.5-5.0); LYMPH % 21.4 % (24.0-44.0); MEAN CORPUSCULAR HEMOGLOBIN 27.7 pg (27.0-33.0); MEAN CORPUSCULAR HGB CONC 30.5 g/dl (32.0-36.5); MEAN CORPUSCULAR VOLUME 90.8 fl (80.0-96.0); MONO # 0.6 10^3/uL (0.0-0.8); MONO % 7.5 % (0.0-5.0); NEUTROPHILS # 5.5 10^3/uL (1.5-8.5); NEUTROPHILS % 67.6 % (36.0-66.0); PLATELET COUNT, AUTOMATED 463 10^3/uL (150-450); RED BLOOD COUNT 3.93 10^6/uL (4.00-5.40); WHITE BLOOD COUNT 8.2 10^3/uL (4.0-10.0)
[2020-04-12 15:51] LABS: APPEARANCE, URINE CLEAR (CLEAR); BACTERIA, URINE AUTO 1+ (NEGATIVE); BILIRUBIN, URINE AUTO NEGATIVE (NEGATIVE); BLOOD, URINE BLOOD 3+ (NEGATIVE); COLOR, URINE STRAW (YELLOW); GLUCOSE, URINE (UA) AUTO NEGATIVE (NEGATIVE); KETONE, URINE AUTO NEGATIVE (NEGATIVE); LEUKOCYTE ESTERASE, URINE AUTO NEGATIVE (NEGATIVE); NITRITE, URINE AUTO NEGATIVE (NEGATIVE); PROTEIN, URINE AUTO NEGATIVE (NEGATIVE); RBC, URINE AUTO 0 /HPF (0-3); SPECIFIC GRAVITY URINE AUTO 1.004 (1.002-1.035); SQUAMOUS EPITHELIAL CELL UR AU 0 /HPF (0-6); UROBILINOGEN, URINE AUTO 0.2 mg/dL (0.0-2.0); WBC, URINE AUTO 0 /HPF (0-3)
[2020-04-12 15:59] LABS: ERYTHROCYTE SEDIMENTATION RATE 43 mm/hr (0-20)
[2020-04-12 16:13] LABS: ALBUMIN 3.1 GM/DL (3.2-5.2); ALT/SGPT 18 U/L (12-78); BILIRUBIN,TOTAL 0.3 MG/DL (0.2-1.0); BLOOD UREA NITROGEN 9 MG/DL (7-18); C REACTIVE PROTEIN QUANTITATIV 1.33 MG/DL (0.00-0.30); CALCIUM LEVEL 8.9 MG/DL (8.5-10.1); CARBON DIOXIDE LEVEL 28 MEQ/L (21-32); CHLORIDE LEVEL 109 MEQ/L (98-107); CREATININE FOR GFR 0.79 MG/DL (0.55-1.30); FERRITIN 10 NG/ML (8-252); FREE T4 0.85 NG/DL (0.76-1.46); GLOMERULAR FILTRATION RATE > 60.0 (>60); GLUCOSE, FASTING 84 MG/DL (70-100); IRON (FE) 24 UG/DL (50-170); PERCENT SATURATION 6.8 % (13.2-45.0); POTASSIUM SERUM 4.2 MEQ/L (3.5-5.1); SODIUM LEVEL 141 MEQ/L (136-145); THYROID STIMULATING HORMONE 0.417 uIU/ML (0.358-3.740); TOTAL IRON BINDING CAPACITY 355 UG/DL (250-450); TOTAL PROTEIN 6.8 GM/DL (6.4-8.2)
== END ==
LOC: M SFHCPLAZ 12:17
PROVIDERS: ATTEND Family Medicine
DX: R61 Generalized hyperhidrosis (principal); K90.9 Intestinal malabsorption, unspecified

== ENCOUNTER → 2020-05-10 | Outpatient (REF) | payer OTHER ==
[2020-05-10 18:28] LABS: FREE T4 0.97 NG/DL (0.76-1.46); THYROID STIMULATING HORMONE 0.699 uIU/ML (0.358-3.740)
== END ==
LOC: M SFHCPLAZ 14:55
PROVIDERS: ATTEND Family Medicine
DX: E03.9 Hypothyroidism, unspecified (principal)

== ENCOUNTER → 2020-07-07 | Outpatient (CLI) | payer OTHER ==
[~2020-07-07] MED LIST changes: +BUPR75TA69 PO; -BUPR75TA99 PO
--- NOTE | 2020-07-07 17:45 | REP ---
INDICATION: PAIN IN LEFT KNEE. COMPARISON: Radiographs 11/26/2019. TECHNIQUE: Multiple sequences obtained in the axial, coronal and sagittal planes. FINDINGS: Menisci: Intact, no tear. Cruciate ligaments: Intact. Collateral ligaments: Intact. Extensor mechanism/patellar retinacula: Intact. Cartilage: There is mild diffuse chondromalacia of the femoral condyles and tibial plateaus, most significantly along the lateral femoral condyle. There is mild chondromalacia of the lateral patellar facet. There is no focal osteochondral defect. Bone marrow: Normal signal, no edema or occult fracture. Joint fluid: There is a moderate joint effusion. Popliteal region: Small amount of fluid extends into the medial popliteal fossa. Mild to moderate high signal on T2 weighted images anterior to the patellar tendon may represent some degree of bursitis in this region. IMPRESSION: No evidence of internal derangement. Mild diffuse chondromalacia. Moderate joint effusion. Findings suggestive of bursitis anterior to the patellar tendon. <Electronically signed by Paulo Du > 07/07/20 2137
== END ==
LOC: M RAD 15:40
PROVIDERS: ATTEND Family Medicine
DX: M25.462 Effusion, left knee (principal); M94.262 Chondromalacia, left knee

== ENCOUNTER → 2020-08-03 | Outpatient (CLI) | payer OTHER ==
[~2020-08-03] MED LIST changes: -AMIT25TA PO; +AMIT25TA17 PO; +GABA-282; +GABA-282 PO; -GABA-843; -GABA-843 PO
[2020-08-03 17:52] LABS: BASO # 0.1 10^3/uL (0.0-0.2); EOS # 0.3 10^3/uL (0.0-0.5); HEMATOCRIT 38.7 % (36.0-47.0); HEMOGLOBIN 11.7 g/dl (12.0-15.5); LYMPH # 2.8 10^3/uL (1.5-5.0); LYMPH % 28.2 % (24.0-44.0); MEAN CORPUSCULAR HGB CONC 30.2 g/dl (32.0-36.5); MONO # 0.7 10^3/uL (0.0-0.8); MONO % 6.6 % (0.0-5.0); NEUTROPHILS # 6.1 10^3/uL (1.5-8.5); NEUTROPHILS % 60.8 % (36.0-66.0); PLATELET COUNT, AUTOMATED 476 10^3/uL (150-450); RED BLOOD COUNT 4.03 10^6/uL (4.00-5.40)
[2020-08-03 18:20] LABS: C REACTIVE PROTEIN QUANTITATIV 2.35 MG/DL (0.00-0.30); RHEUMATOID FACTOR QUANT < 10.0 IU/ML (<15.0)
[2020-08-03 19:29] LABS: ERYTHROCYTE SEDIMENTATION RATE 31 mm/hr (0-20)
[2020-08-05 14:11] LABS: Lyme Disease IgG/IgM Antibodie <0.91 ISR (0.00-0.90); Lyme Disease IgM Ab Quantitati <0.80 index (0.00-0.79)
== END ==
LOC: M PLALAB 15:29
PROVIDERS: ATTEND Physician Assistant
DX: M17.12 Unilateral primary osteoarthritis, left knee (principal)

== ENCOUNTER → 2020-09-13 | Outpatient (REF) | payer OTHER | LOC: M SFHCWAGY 14:58 | PROVIDERS: ATTEND Nurse Practitioner Women's Health | DX: R87.612 Low grade squamous intraepithelial lesion on cytologic smear of cervix (LGSIL) (principal); B97.7 Papillomavirus as the cause of diseases classified elsewhere ==

== ENCOUNTER → 2020-09-13 | Outpatient (REF) | payer OTHER ==
[2020-09-13 13:53] LABS: PERCENT SATURATION 16.1 % (13.2-45.0); THYROID STIMULATING HORMONE 0.804 uIU/ML (0.358-3.740)
== END ==
LOC: M PLALAB 11:48
PROVIDERS: ATTEND Family Medicine
DX: D50.9 Iron deficiency anemia, unspecified (principal); E03.9 Hypothyroidism, unspecified

== ENCOUNTER → 2020-10-11 | Outpatient (REF) | payer OTHER | LOC: M SFHCPLAZ 09:35 | PROVIDERS: ATTEND Family Medicine | DX: Z51.81 Encounter for therapeutic drug level monitoring (principal) ==

== ENCOUNTER → 2020-11-09 | Outpatient (CLI) | payer OTHER ==
[~2020-11-09] MED LIST changes: +GABA-283 PO; -GABA-845 PO; +ZOFR4TAB16 PO
--- NOTE | 2020-11-09 15:10 | REPPI ---
INDICATION: PLEURAL EFFUSION COMPARISON: 07/30/2015. TECHNIQUE: PA/Lateral FINDINGS: Lungs: Clear, no infiltrate. Heart: Normal in size. Mediastinum: Mediastinal silhouette unremarkable. Pleural angles: Unremarkable.. Bones and soft tissues: Unremarkable. IMPRESSION: No acute pulmonary disease. <Electronically signed by Paulo Du > 11/09/20 [id number]
== END ==
LOC: M PLAIMG 13:34
PROVIDERS: ATTEND Physician Assistant
DX: J90 Pleural effusion, not elsewhere classified (principal)

== ENCOUNTER 2020-11-10 12:04 | Emergency (ER) | payer OTHER ==
[~2020-11-10] VITALS: Ht 160 cm; Wt 152.2 kg
[2020-11-10 12:04] VITALS: BP 150/95
[~2020-11-10 12:04] MED LIST changes: -ZOFR4TAB16 PO
[2020-11-10 12:46] LABS: BASO # 0.1 10^3/uL (0.0-0.2); BASO % 0.5 % (0.0-1.0); EOS # 0.2 10^3/uL (0.0-0.5); EOS % 1.2 % (0.0-3.0); HEMATOCRIT 42.4 % (36.0-47.0); HEMOGLOBIN 13.1 g/dl (12.0-15.5); LYMPH # 1.7 10^3/uL (1.5-5.0); LYMPH % 13.3 % (24.0-44.0); MEAN CORPUSCULAR HEMOGLOBIN 29.2 pg (27.0-33.0); MEAN CORPUSCULAR HGB CONC 30.9 g/dl (32.0-36.5); MEAN CORPUSCULAR VOLUME 94.4 fl (80.0-96.0); MONO # 0.8 10^3/uL (0.0-0.8); MONO % 5.9 % (2.0-8.0); NEUTROPHILS # 10.2 10^3/uL (1.5-8.5); NEUTROPHILS % 78.5 % (36.0-66.0); PLATELET COUNT, AUTOMATED 420 10^3/uL (150-450); RED BLOOD COUNT 4.49 10^6/uL (4.00-5.40)
[2020-11-10 13:08] LABS: ALBUMIN 3.4 GM/DL (3.2-5.2); ALT/SGPT 18 U/L (12-78); BILIRUBIN,DIRECT < 0.1 MG/DL (0.0-0.2); BILIRUBIN,TOTAL 0.4 MG/DL (0.2-1.0); BLOOD UREA NITROGEN 10 MG/DL (7-18); CALCIUM LEVEL 9.8 MG/DL (8.5-10.1); CARBON DIOXIDE LEVEL 29 MEQ/L (21-32); CHLORIDE LEVEL 103 MEQ/L (98-107); CREATININE FOR GFR 0.78 MG/DL (0.55-1.30); GLOMERULAR FILTRATION RATE > 60.0 (>60); GLUCOSE, FASTING 91 MG/DL (70-100); HCG, SERUM QUALITATIVE NEGATIVE (NEGATIVE); LIPASE 20 U/L (73-393); SODIUM LEVEL 137 MEQ/L (136-145); TOTAL PROTEIN 7.2 GM/DL (6.4-8.2)
[2020-11-10] MEDS ORDERED: ONDANSETRON 4MG/2ML VIAL IV ONE (13:35)
[2020-11-10] MEDS ORDERED: KETOROLAC 30 MG/ML 1ML VIAL IV ONE (13:35)
[2020-11-10] MEDS ORDERED: NS 1,000 ML IV ONE (13:35)
--- NOTE | 2020-11-10 14:05 | REP ---
INDICATION: hx perf duodenal ulcer, RUQ epigastric pain. COMPARISON: None. TECHNIQUE: Supine and upright views FINDINGS: Supine and upright views of the abdomen show the intestinal gas pattern to be nonspecific. Gas and stool is seen throughout the colon within the rectosigmoid region. The organ silhouettes insofar as delineated appear unremarkable. No abdominal calcific densities are seen within the abdomen or pelvis. The accompanying single frontal view of the chest shows no free subdiaphragmatic air, cardiomegaly, infiltrates or effusions. IMPRESSION: Nonspecific intestinal gas pattern. There is no evidence of acute disease <Electronically signed by Brett Kent > 11/10/20 [id number]
--- NOTE | 2020-11-10 15:09 | REP ---
INDICATION: hx of gallstones, n/v RUQ pain. COMPARISON: 04/29/2012. TECHNIQUE: Real-time sonographic evaluation of right upper quadrant performed. FINDINGS: There are mobile gallstones in the gallbladder measuring up to 2.4 cm in diameter. There is no gallbladder wall thickening or pericholecystic fluid.. There is no intrahepatic or extrahepatic biliary dilatation, common bile duct measures 3 mm in maximum diameter. Liver demonstrates somewhat increased echotexture diffusely suggesting some degree of fibrofatty infiltration. No focal mass is seen the pancreas is not visualized due to overlying bowel gas. The right kidney demonstrates no hydronephrosis, with a normal size of 10.7 cm in length. No free fluid is seen. IMPRESSION: Mobile gallstones in the gallbladder without evidence of gallbladder wall thickening, pericholecystic fluid or biliary dilatation. <Electronically signed by Paulo Du > 11/10/20 [id number]
[2020-11-10] MEDS ORDERED: ZOFR4TAB16 PO ×2 (15:18→15:20)
== END 2020-11-10 15:33 | disposition home or self-care (01) ==
LOC: M ED 12:04
DX: K80.70 Calculus of gallbladder and bile duct without cholecystitis without obstruction (principal); E03.9 Hypothyroidism, unspecified; M79.7 Fibromyalgia; Z79.899 Other long term (current) drug therapy; Z79.890 Hormone replacement therapy; Z88.5 Allergy status to narcotic agent; Z88.8 Allergy status to other drugs, medicaments and biological substances; Z87.11 Personal history of peptic ulcer disease; Z87.09 Personal history of other diseases of the respiratory system
CPT/HCPCS: 74021; 76705; 80048; 80076; 81001; 83690; 84703; 85025; 96374; 96375; 99284; J1885; J2405

== ENCOUNTER → 2021-01-15 | Outpatient (CLI) | payer OTHER ==
[~2021-01-15] MED LIST changes: +OMEP40CA4 PO; -OMEP40CA97 PO; +ZOFR4TAB16 PO
[2021-01-15 11:51] LABS: HEMATOCRIT 42.8 % (36.0-47.0); HEMOGLOBIN 13.3 g/dl (12.0-15.5); MEAN CORPUSCULAR HEMOGLOBIN 30.2 pg (27.0-33.0); MEAN CORPUSCULAR HGB CONC 31.1 g/dl (32.0-36.5); MEAN CORPUSCULAR VOLUME 97.1 fl (80.0-96.0); PLATELET COUNT, AUTOMATED 449 10^3/uL (150-450); RED BLOOD COUNT 4.41 10^6/uL (4.00-5.40); WHITE BLOOD COUNT 9.5 10^3/uL (4.0-10.0)
[2021-01-15 11:58] LABS: HEMATOCRIT 42.8 % (36.0-47.0)
[2021-01-15 12:25] LABS: FREE T4 0.77 NG/DL (0.76-1.46); MAGNESIUM LEVEL 2.2 MG/DL (1.8-2.4); PERCENT SATURATION 12.5 % (13.2-45.0); PHOSPHORUS LEVEL 2.8 MG/DL (2.5-4.9); THYROID STIMULATING HORMONE 0.695 uIU/ML (0.358-3.740)
--- NOTE | 2021-01-15 19:06 | REP ---
INDICATION: OTHER FATIGUE. COMPARISON: PA chest 11/10/2020, 03/31/2015, PA lateral 07/30/2015, CT chest 01/06/2016. TECHNIQUE: PA lateral views FINDINGS: The lung sabillon are well inflated. CP angles are sharply defined without pleural effusion and there is no lateral pleural thickening or apical scarring. I see no infiltrate, atelectasis or mass. No pulmonary nodules or parenchymal lesions. The heart, mediastinal and hilar contours were unremarkable. Aorta and airway intact. The bony thorax shows no acute compression deformity or focal lesion. Clavicles scapulae and ribs grossly intact. IMPRESSION: 1. No acute cardiopulmonary change. <Electronically signed by Juan M Lara > 01/15/21 [id number]
[2021-01-17 09:44] LABS: TOTAL 25(OH) VITAMIN D 34.8 NG/ML (30.0-100.0)
== END ==
LOC: M LAB 11:09
PROVIDERS: ATTEND Family Medicine
DX: R53.83 Other fatigue (principal); E03.9 Hypothyroidism, unspecified; K91.2 Postsurgical malabsorption, not elsewhere classified; E55.9 Vitamin D deficiency, unspecified

== ENCOUNTER 2021-04-01 18:52 | Inpatient (IN) | payer MEDICAID, OTHER ==
[~2021-04-01] VITALS: Ht 160 cm; Wt 146.6 kg
[2021-04-01 19:36] LABS: HEMATOCRIT 41.9 % (36.0-47.0); HEMOGLOBIN 13.4 g/dl (12.0-15.5); MEAN CORPUSCULAR HEMOGLOBIN 30.7 pg (27.0-33.0); MEAN CORPUSCULAR VOLUME 96.1 fl (80.0-96.0); PLATELET COUNT, AUTOMATED 459 10^3/uL (150-450); RED BLOOD COUNT 4.36 10^6/uL (4.00-5.40); WHITE BLOOD COUNT 12.4 10^3/uL (4.0-10.0)
[2021-04-01 19:59] LABS: AMPHETAMINES LEVEL URINE POSITIVE (NEGATIVE); BARBITURATES URINE NEGATIVE (NEGATIVE); BENZODIAZEPINES URINE NEGATIVE (NEGATIVE); CANNABINOIDS URINE NEGATIVE (NEGATIVE); COCAINE METABOLITE URINE NEGATIVE (NEGATIVE); METHADONE URINE NEGATIVE (NEGATIVE); OPIATES URINE NEGATIVE (NEGATIVE); PHENCYCLIDINE URINE NEGATIVE (NEGATIVE)
[2021-04-01 20:02] LABS: HCG, SERUM QUALITATIVE NEGATIVE (NEGATIVE)
[2021-04-01 20:49] LABS: ACETAMINOPHEN LEVEL < 2.0 UG/ML (10.0-30.0); ALBUMIN 3.5 GM/DL (3.2-5.2); ALT/SGPT 18 U/L (12-78); BILIRUBIN,DIRECT < 0.1 MG/DL (0.0-0.2); BILIRUBIN,TOTAL 0.3 MG/DL (0.2-1.0); BLOOD UREA NITROGEN 14 MG/DL (7-18); CARBON DIOXIDE LEVEL 27 MEQ/L (21-32); CHLORIDE LEVEL 109 MEQ/L (98-107); CREATININE FOR GFR 0.94 MG/DL (0.55-1.30); ETHYL ALCOHOL (ETHANOL) < 0.003 % (0.000-0.010); GLOMERULAR FILTRATION RATE > 60.0 (>60); GLUCOSE, FASTING 95 MG/DL (70-100); POTASSIUM SERUM 4.6 MEQ/L (3.5-5.1); SALICYLATE LEVEL < 1.7 MG/DL (5.0-30.0); SODIUM LEVEL 140 MEQ/L (136-145); TOTAL PROTEIN 7.4 GM/DL (6.4-8.2)
[2021-04-01 23:27] LABS: RSV AMPLIFICATION NEGATIVE (NEGATIVE)
[2021-04-02] MEDS ORDERED: MAALOX 30 ML SUSP *UDC PO PRN (01:30)
[2021-04-02] MEDS ORDERED: OLANZapine ORAL DISINTEGRATING TAB 5MG PO PRN (01:30)
[2021-04-02] MEDS ORDERED: ACETAMINOPHEN TAB 650MG DOSE (2X325MG) PO PRN (01:30)
[2021-04-02] MEDS ORDERED: traZODone 50 MG TAB PO PRN (01:30)
[2021-04-02] MEDS ORDERED: MOM 30ML SUSPENSION UDC PO PRN (01:30)
[2021-04-02] MEDS ORDERED: DULO60CA35 PO (01:55)
[2021-04-02] MEDS ORDERED: LEVO100T5 PO (01:56)
[2021-04-02] MEDS ORDERED: LAMO25TA4 PO (01:58)
[2021-04-02] MEDS ORDERED: FERR325T3 PO (01:58)
[2021-04-02] MEDS ORDERED: TOPI50TA9 PO (01:58)
[2021-04-02] MEDS ORDERED: BUPR-69 PO (01:58)
[2021-04-02] MEDS ORDERED: GABA800T4 PO (01:58)
[2021-04-02] MEDS ORDERED: PROP20TA72 PO (01:59)
[2021-04-02] MEDS ORDERED: HOME MED LIST COMPLETE! XX SCH (02:00)
[2021-04-02 05:53] VITALS: BP 106/63
[2021-04-02] MEDS ORDERED: buPROPion 100 MG TAB PO SCH (09:00)
--- NOTE | 2021-04-02 10:13 | HPEPDOC ---
[facility] Medical History & Physical Date of Admission Apr 02, 2021 Date of Service: Apr 02, 2021 History and Physical CHIEF COMPLAINT: Thoughts of suicide HISTORY OF PRESENT ILLNESS: 35-year-old female with a past medical history of chronic back pain, chronic anemia, vitamin D deficiency, hypothyroidism, ?elevated heart rate, and GERD presented to emergency room department with complaints of suicidal ideation. She has been feeling depressed and having intermittent suicidal ideations for the last 1 month which had worsened over the last 1 to 2 days. She reports having stressors at home but did not elaborate/go into details at this time. She had thoughts of slicing her wrist. She denied homicidal ideations. She e ndorses having chronic back pain that she was seeing a pain management clinic for but found no relief with the injections that she was receiving. She denies acute changes in her back pain, as well as urinary and bowel incontinence. She denies saddle anesthesia. She denies changes in strength and sensation in her upper or lower extremities. She denies chest pain, palpitations, abdominal pain, nausea, vomiting, problems with urination or bowel movements. PAST MEDICAL HISTORY: As mentioned above PAST SURGICAL HISTORY: 1. Gastric bypass 2. Repair of perforated gastric ulcer 3. She has had a tooth removed SOCIAL HISTORY: Lives alone. She denies smoking, drinking, use of recreational drugs. FAMILY HISTORY: Noncontributory ALLERGIES: Please see below. REVIEW OF SYSTEMS: 10 point review of system was negative except for what is noted in the HPI HOME MEDICATIONS: Please see below. PHYSICAL EXAMINATION: VITAL SIGNS: Please see below General: Lying in bed, no acute distress, obese Head/Neck/Throat: Trachea midline, mucous membranes moist Eyes: Sclera anicteric, no erythema or discharge appreciated bilaterally Thorax: Normal respiratory effort on room air, lungs clear to auscultation bilaterally, no wheezes/rales/rhonchi Cardiovascular: Normal rate, regular rhythm, normal S1, S2; no S3, S4, rubs/gallops/murmurs Abdomen: Bowel sounds present, soft/nontender/nondistended Genitourinary: No CVA tenderness, no Nicolas in place Musculoskeletal: There is paralumbar tenderness reported with palpation, reports that this is chronic Skin: Warm, dry Neurologic: AAOx3, speech fluent and goal-directed, no focal deficits, grossly intact LABORATORY DATA: See below. IMAGING: No new imaging to review at this time MICROBIOLOGY: Please see below. ASSESSMENT/PLAN: #Depression -Presenting with suicidal ideations. Will resume ambulatory mood stabilizers, adjustments can be made by primary psychiatric team. #Leukocytosis -There is no signs of active infection at this time. This is likely reactive (talk screen positive for amphetamines). We will follow off antibiotics. Can repeat blood work in 1 to 2 days to ensure resolution. #Chronic anemia -Continue with iron supplementation #Chronic pain -Continue with gabapentin #Hypothyroidism -TSH within normal limits. Continue with levothyroxine #GERD -Continue with omeprazole #DVT prophylaxis -Encourage ambulation #Elevated heart rate -Reports having persistent tachycardia in the past and therefore was asked to continue with propanolol. This would need further evaluation by her oven heater helper in the outpatient setting, it is possible she may have IST. At this time her vitals are unremarkable. History and physical examination was done in the presence of a mixed livestock farmer. Vital Signs Vital Signs Date Time Temp Pulse Resp B/P (MAP) Pulse Ox O2 Delivery O2 Flow Rate FiO2 04/02/21 05:53 97.3 87 6 106/63 (77) 04/02/21 03:00 98 Room Air Laboratory Data Labs 24H Laboratory Tests 2 04/01/21 19:20: Nucleated Red Blood Cells % (auto) 0.0, Anion Gap 4L, Glomerular Filtration Rate > 60.0, Calcium Level 9.0, Total Bilirubin 0.3, Direct Bilirubin < 0.1, Aspartate Amino Transf (AST/SGOT) 14, Alanine Aminotransferase (ALT/SGPT) 18, Alkaline Phosphatase 114, Total Protein 7.4, Albumin 3.5, Albumin/Globulin Ratio 0.9L, Thyroid Stimulating Hormone (TSH) 2.150, Human Chorionic Gonadotropin, Qual NEGATIVE, Salicylates Level < 1.7L, Urine Opiates Screen NEGATIVE, Urine Methadone Screen NEGATIVE, Acetaminophen Level < 2.0L, Urine Barbiturates Screen NEGATIVE, Urine Phencyclidine Screen NEGATIVE, Urine Amphetamines Screen POSITIVEH, Urine Benzodiazepines Screen NEGATIVE, Urine Cocaine Metabolite Screen NEGATIVE, Urine Cannabinoids Screen NEGATIVE, Ethyl Alcohol Level < 0.003 04/01/21 22:25: Coronavirus (COVID-19)(PCR) NEGATIVE, Influenza Type A (RT-PCR) NEGATIVE, Influenza Type B (RT-PCR) NEGATIVE, Respiratory Syncytial Virus (PCR) NEGATIVE CBC/BMP Laboratory Tests 10/1/21 19:20 Home Medications Scheduled Bupropion HCl (Bupropion HCl) 100 Mg Tablet, 100 MG PO BID Cholecalciferol (Vitamin D3) (Vitamin D3) 1,000 Unit Tablet, 5,000 UNITS PO DAILY Duloxetine HCl (Duloxetine HCl) 60 Mg Capsule.dr, 60 MG PO DAILY Ferrous Sulfate (Ferrous Sulfate) 325 Mg Tablet.dr, 325 MG PO DAILY Gabapentin (Gabapentin) 800 Mg Tablet, 800 MG PO TID Lamotrigine (Lamotrigine) 25 Mg Tablet, 75 MG PO DAILY Levothyroxine Sodium (Levothyroxine Sodium) 100 Mcg Tablet, 100 MCG PO DAILY Omeprazole (Omeprazole) 40 Mg Cap, 40 MG PO BID Propranolol HCl (Propranolol HCl) 20 Mg Tablet, 20 MG PO DAILY Topiramate (Topiramate) 50 Mg Tablet, 50 MG PO BID Allergies Coded Allergies: tramadol (Verified Adverse Reaction, Severe, SEROTONIN SYNDROME, 12/11/19) simvastatin (Verified Adverse Reaction, Intermediate, SEVERE JOINT PAIN, 12/11/19) A-FIB/CHADSVASC A-FIB History Current/History of A-Fib/PAF?: No AMBROSIO CHAUHAN M.D. Apr 02, 2021 10:13
[2021-04-02] MEDS: lamoTRIgine 25MG TAB PO SCH (11:47)
[2021-04-02] MEDS: FERROUS SULFATE 325MG TAB PO SCH (11:47)
[2021-04-02] MEDS: VITAMIN D 1,000 INTERNATIONAL UNITS TABLET PO SCH (11:47)
[2021-04-02] MEDS: OMEPRAZOLE 20 MG CAP PO SCH ×2 (11:47→20:29)
[2021-04-02] MEDS: GABAPENTIN 400MG CAP PO SCH ×3 (11:47→20:29)
[2021-04-02] MEDS: LEVOTHYROXINE 100MCG TABLET (0.1MG) PO SCH (11:48)
[2021-04-02] MEDS: TOPIRAMATE (TopAMAX) 25 MG TAB PO SCH ×2 (11:48→20:28)
[2021-04-02] MEDS: PROPRANOLOL 20 MG TAB PO SCH (12:17)
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
[2021-04-02 16:36] VITALS: BP 116/89
[2021-04-02] MEDS: buPROPion 100 MG TAB PO SCH (20:28)
[2021-04-02] MEDS ORDERED: tiZANidine 4 MG TAB PO PRN (22:50)
[2021-04-03] MEDS: LEVOTHYROXINE 100MCG TABLET (0.1MG) PO SCH (05:55)
[2021-04-03 06:00] VITALS: BP 140/83
[2021-04-03] MEDS: PROPRANOLOL 20 MG TAB PO SCH ×2 (08:35→16:13)
[2021-04-03] MEDS: TOPIRAMATE (TopAMAX) 25 MG TAB PO SCH ×2 (08:36→21:00)
[2021-04-03] MEDS: OMEPRAZOLE 20 MG CAP PO SCH ×2 (08:36→21:00)
[2021-04-03] MEDS: buPROPion 100 MG TAB PO SCH ×2 (08:36→16:53)
[2021-04-03] MEDS: lamoTRIgine 25MG TAB PO SCH (08:37)
[2021-04-03] MEDS: FERROUS SULFATE 325MG TAB PO SCH (08:37)
[2021-04-03] MEDS: VITAMIN D 1,000 INTERNATIONAL UNITS TABLET PO SCH (08:37)
[2021-04-03] MEDS: GABAPENTIN 400MG CAP PO SCH ×2 (08:37→16:12)
[2021-04-03] MEDS: DULoxetine 30MG CAPSULE (CYMBALTA) PO SCH (09:56)
--- NOTE | 2021-04-03 12:39 | MHIPNPDOC ---
[facility] Progress Note Progress Note DATE OF SERVICE: 04/03/21 HISTORY: 35-year-old woman admitted for suicidal ideation in the context of stresses in her life most notably, arguments with her mother and her boyfriend. She reports that she feeling somewhat better today as her boyfriend has said that he regrets his decisions and has agreed to walking her back. Her only complaints are in relation to the timing of her medications, she requested adjustments to timing of her doses in order to be more similar to what she takes at home, Karen states that she takes her twice a day medications around 8 in the morning and 4 in the afternoon, and that she seems to not have effect from the tizanidine she takes it too close in time to the gabapentin, and normally would take it 8 to 10 hours apart instead of the 12 that hospital scheduling allows for twice a day dosing. VITAL SIGNS: See below. NEW TEST RESULTS: None. CURRENT MEDICATIONS: See below. MENTAL STATUS EXAMINATION: Patient is a 35-year old female, who is dressed in personal clothing, seen eating lunch at the time of admission interview. Speech: Is clear with regular rate, rhythm, and volume. Language skills are intact. Thought processes including: Logical, linear, and goal-directed. Thought content: Denies SI today, states that her mood is improving. Abstract reasoning, and computation: Intact. Description of associations: Linear. Description of abnormal or psychotic thoughts: Denies SI, HI, AVH. Judgment: Fair. Insight: Fair. Orientation: X3. Recent and remote memory: Intact. Attention span and concentration: Intact. Mood: "I feel better". Affect: Neutral, congruent to stated mood and thought content. DIAGNOSES: 1. Major depressive disorder, recurrent, severe, without psychotic features 2. Generalized anxiety disorder 3. Borderline personality disorder ASSESSMENT: Nona appears to be improving, this is likely consistent with her reported level of functioning. Agreed to adjust the medications to better manage her home dosing in order to allow her as minimal disruption to her schedule as possible. She feels hopeful for the future as her boyfriend has agreed to continue seeing her and has stopped seeing "the twit" by which she means the other woman that he was briefly seeing. MANAGEMENT PLAN: Continue current medications, dosing schedule adjusted to be closer to her home regimen. Added second dose of propanolol in the afternoon to increase compliance with her home regimen. TIME SPENT: 15 minutes. Vital Signs Vital Signs Date Time Temp Pulse Resp B/P (MAP) Pulse Ox O2 Delivery O2 Flow Rate FiO2 04/03/21 08:35 72 140/83 04/03/21 06:00 98.6 16 98 Room Air Current Medications Current Medications Medications (Trade) Dose Ordered Sig/Kiko Route PRN Reason Start Time Stop Time Status Last Admin Dose Admin Acetaminophen (Tylenol Tab) 650 mg Q6HP PRN PO HEADACHE or MILD DISCOMFORT 04/02/21 01:30 Al Hydrox/Mg Hydrox/Simethicone (Mylanta) 30 ml Q4HP PRN PO HEARTBURN/INDIGESTION 04/02/21 01:30 Bupropion HCl (Wellbutrin) 100 mg BID PO 04/02/21 09:00 04/02/21 12:37 DC 04/02/21 12:16 Bupropion HCl (Wellbutrin) 200 mg BID PO 04/02/21 21:00 04/03/21 12:28 DC 04/03/21 08:36 Bupropion HCl (Wellbutrin) 200 mg DAILY PO 04/03/21 16:00 UNV Bupropion HCl (Wellbutrin) 200 mg DAILY PO 04/04/21 09:00 UNV Duloxetine HCl (Cymbalta) 60 mg DAILY PO 04/03/21 09:00 04/03/21 09:56 Ferrous Sulfate (Ferrous Sulfate) 325 mg DAILY PO 04/02/21 09:00 04/03/21 08:37 Gabapentin (Neurontin) 800 mg TID PO 04/02/21 09:00 04/03/21 08:37 Home Med (Home Med List Complete!) ASDIRECTED XX 04/02/21 02:00 04/02/21 02:06 DC Lamotrigine (LaMICtal) 75 mg DAILY PO 04/02/21 09:00 04/03/21 08:37 Levothyroxine Sodium (Synthroid) 100 mcg DAILY@0600 PO 04/02/21 06:00 04/03/21 05:55 Magnesium Hydroxide (Milk Of Magnesia) 30 ml DAILYPRN PRN PO CONSTIPATION 04/02/21 01:30 Olanzapine (ZyPREXA ZYDIS) 5 mg Q4HP PRN PO ANXIETY/AGITATION 04/02/21 01:30 Omeprazole (PriLOSEC) 40 mg BID PO 04/02/21 09:00 04/03/21 08:36 Propranolol HCl (Inderal) 20 mg DAILY PO 04/02/21 09:00 04/03/21 08:35 Tizanidine HCl (Zanaflex) 4 mg BID PRN PO migraine/muscle relaxation 04/02/21 22:50 Topiramate (TopAMAX) 50 mg BID PO 04/02/21 09:00 04/03/21 08:36 Trazodone HCl (Desyrel) 50 mg QHSP PRN PO INSOMNIA 04/02/21 01:30 Vitamin D (Vitamin D) 5,000 units DAILY PO 04/02/21 09:00 04/03/21 08:37 Allergies Coded Allergies: tramadol (Verified Adverse Reaction, Severe, SEROTONIN SYNDROME, 12/11/19) simvastatin (Verified Adverse Reaction, Intermediate, SEVERE JOINT PAIN, 12/11/19) AKANKSHA HOLDEN MD Apr 03, 2021 12:39
[2021-04-03] MEDS ORDERED: GABAPENTIN 400MG CAP PO ONE (16:00)
[2021-04-03] MEDS ORDERED: PROPRANOLOL 20 MG TAB PO ONE (16:00)
[2021-04-03] MEDS ORDERED: buPROPion 100 MG TAB PO SCH ×2 (16:00)
[2021-04-03 16:50] VITALS: BP 120/70
[2021-04-03] MEDS: tiZANidine 4 MG TAB PO PRN (20:01)
[2021-04-04 07:17] VITALS: BP 124/64
[2021-04-04] MEDS ORDERED: buPROPion 100 MG TAB PO SCH (09:00)
[2021-04-04] MEDS: PROPRANOLOL 20 MG TAB PO SCH ×2 (09:56→16:27)
[2021-04-04] MEDS: buPROPion 100 MG TAB PO SCH ×2 (09:56→16:26)
[2021-04-04] MEDS: FERROUS SULFATE 325MG TAB PO SCH (09:57)
[2021-04-04] MEDS: lamoTRIgine 25MG TAB PO SCH (09:57)
[2021-04-04] MEDS: TOPIRAMATE (TopAMAX) 25 MG TAB PO SCH ×2 (09:58→20:53)
[2021-04-04] MEDS: DULoxetine 30MG CAPSULE (CYMBALTA) PO SCH (09:58)
[2021-04-04] MEDS: OMEPRAZOLE 20 MG CAP PO SCH ×2 (09:58→20:53)
[2021-04-04] MEDS: LEVOTHYROXINE 100MCG TABLET (0.1MG) PO SCH (10:00)
[2021-04-04] MEDS: VITAMIN D 1,000 INTERNATIONAL UNITS TABLET PO SCH (10:00)
[2021-04-04] MEDS: GABAPENTIN 400MG CAP PO SCH ×2 (10:10→16:26)
--- NOTE | 2021-04-04 12:46 | MHIPNPDOC ---
[facility] Progress Note Progress Note DATE OF SERVICE: 04/04/21 HISTORY: HISTORY: 35-year-old woman admitted for suicidal ideation in the context of stresses in her life most notably, arguments with her mother and her boyfriend. She reports that she feeling somewhat better today as her boyfriend has said that he regrets his decisions and has agreed to walking her back. Her only complaints are in relation to the timing of her medications, she requested adjustments to timing of her doses in order to be more similar to what she takes at home, Karen states that she takes her twice a day medications around 8 in the morning and 4 in the afternoon, and that she seems to not have effect from the tizanidine she takes it too close in time to the gabapentin, and normally would take it 8 to 10 hours apart instead of the 12 that hospital scheduling allows for twice a day dosing. VITAL SIGNS: See below. NEW TEST RESULTS: None. CURRENT MEDICATIONS: See below. MENTAL STATUS EXAMINATION: Patient is a 35-year old female, who is dressed in personal clothing, seen eating lunch at the time of admission interview. Speech: Is clear with regular rate, rhythm, and volume. Language skills are intact. Thought processes including: Logical, linear, and goal-directed. Thought content: Denies SI today, states that her mood is improving. Abstract reasoning, and computation: Intact. Description of associations: Linear. Description of abnormal or psychotic thoughts: Denies SI, HI, AVH. Judgment: Fair. Insight: Fair. Orientation: X3. Recent and remote memory: Intact. Attention span and concentration: Intact. Mood: "I feel ok". Affect: Neutral, congruent to stated mood and thought conten t. DIAGNOSES: 1. Major depressive disorder, recurrent, severe, without psychotic features 2. Generalized anxiety disorder 3. Borderline personality disorder ASSESSMENT: Patient states that numerous stressors including breakup with her boyfriend who had been cheating on her increased depressive symptoms and suicidal ideations. She states that because her boyfriend was her biggest support this made her feel feel overwhelmed. She states that she has fleeting suicidal ideations but it is less intrusive today. Reports a minimal improvement in her mood and states that she has improved sleep. Continues to feel isolative and withdrawn. Requested that Omeprazole and Tramadol timing be adjusted to her home regimen. Appeared dysphoric and flat in her interview. MANAGEMENT PLAN: Continue current medications, dosing schedule adjusted to be closer to her home regimen. TIME SPENT: 25 minutes. Vital Signs Vital Signs Date Time Temp Pulse Resp B/P (MAP) Pulse Ox O2 Delivery O2 Flow Rate FiO2 04/04/21 09:56 95 124/64 04/04/21 07:17 97.7 16 97 Room Air Current Medications Current Medications Medications (Trade) Dose Ordered Sig/Kiko Route PRN Reason Start Time Stop Time Status Last Admin Dose Admin Acetaminophen (Tylenol Tab) 650 mg Q6HP PRN PO HEADACHE or MILD DISCOMFORT 04/02/21 01:30 Al Hydrox/Mg Hydrox/Simethicone (Mylanta) 30 ml Q4HP PRN PO HEARTBURN/INDIGESTION 04/02/21 01:30 Bupropion HCl (Wellbutrin) 100 mg BID PO 04/02/21 09:00 04/02/21 12:37 DC 04/02/21 12:16 Bupropion HCl (Wellbutrin) 200 mg BID PO 04/02/21 21:00 04/03/21 12:28 DC 04/03/21 08:36 Bupropion HCl (Wellbutrin) 200 mg BID@0900,1600 PO 04/03/21 16:00 04/04/21 09:56 Bupropion HCl (Wellbutrin) 200 mg DAILY PO 04/03/21 16:00 04/03/21 16:39 DC Bupropion HCl (Wellbutrin) 200 mg DAILY PO 04/03/21 16:00 UNV Bupropion HCl (Wellbutrin) 200 mg DAILY PO 04/04/21 09:00 04/03/21 16:40 DC Duloxetine HCl (Cymbalta) 60 mg DAILY PO 04/03/21 09:00 04/04/21 09:58 Ferrous Sulfate (Ferrous Sulfate) 325 mg DAILY PO 04/02/21 09:00 04/04/21 09:57 Gabapentin (Neurontin) 800 mg DAILY@1600 PO 04/03/21 16:00 04/03/21 16:12 Gabapentin (Neurontin) 800 mg TID PO 04/02/21 09:00 04/03/21 12:29 DC 04/03/21 08:37 Gabapentin (Neurontin) 1,600 mg DAILY PO 04/04/21 09:00 04/04/21 10:10 Home Med (Home Med List Complete!) ASDIRECTED XX 04/02/21 02:00 04/02/21 02:06 DC Lamotrigine (LaMICtal) 75 mg DAILY PO 04/02/21 09:00 04/04/21 09:57 Levothyroxine Sodium (Synthroid) 100 mcg DAILY@0600 PO 04/02/21 06:00 04/04/21 10:00 Magnesium Hydroxide (Milk Of Magnesia) 30 ml DAILYPRN PRN PO CONSTIPATION 04/02/21 01:30 Olanzapine (ZyPREXA ZYDIS) 5 mg Q4HP PRN PO ANXIETY/AGITATION 04/02/21 01:30 Omeprazole (PriLOSEC) 40 mg BID PO 04/02/21 09:00 04/04/21 09:58 Propranolol HCl (Inderal) 20 mg BID@0900,1600 PO 04/03/21 16:00 04/04/21 09:56 Propranolol HCl (Inderal) 20 mg DAILY PO 04/02/21 09:00 04/03/21 12:53 DC 04/03/21 08:35 Tizanidine HCl (Zanaflex) 4 mg BID PRN PO migraine/muscle relaxation 04/02/21 22:50 04/03/21 12:30 DC Tizanidine HCl (Zanaflex) 4 mg Q8HP PRN PO migraine/muscle relaxation 04/03/21 12:30 04/03/21 20:01 Topiramate (TopAMAX) 50 mg BID PO 04/02/21 09:00 04/04/21 09:58 Trazodone HCl (Desyrel) 50 mg QHSP PRN PO INSOMNIA 04/02/21 01:30 Vitamin D (Vitamin D) 5,000 units DAILY PO 04/02/21 09:00 04/04/21 10:00 Allergies Coded Allergies: tramadol (Verified Adverse Reaction, Severe, SEROTONIN SYNDROME, 12/11/19) simvastatin (Verified Adverse Reaction, Intermediate, SEVERE JOINT PAIN, 12/11/19) JORDON TEMPLETON NP Apr 04, 2021 12:45
[2021-04-04 18:01] VITALS: BP 135/78
[2021-04-04] MEDS: tiZANidine 4 MG TAB PO PRN (20:53)
[2021-04-05 06:00] VITALS: BP 119/83
[2021-04-05] MEDS: LEVOTHYROXINE 100MCG TABLET (0.1MG) PO SCH (06:19)
[2021-04-05] MEDS: GABAPENTIN 400MG CAP PO SCH ×2 (08:59→15:44)
[2021-04-05] MEDS: OMEPRAZOLE 20 MG CAP PO SCH ×2 (08:59→21:00)
[2021-04-05] MEDS: TOPIRAMATE (TopAMAX) 25 MG TAB PO SCH ×2 (09:00→21:00)
[2021-04-05] MEDS: DULoxetine 30MG CAPSULE (CYMBALTA) PO SCH (09:00)
[2021-04-05] MEDS: FERROUS SULFATE 325MG TAB PO SCH (09:00)
[2021-04-05] MEDS: lamoTRIgine 25MG TAB PO SCH (09:00)
[2021-04-05] MEDS: PROPRANOLOL 20 MG TAB PO SCH ×2 (09:01→15:49)
[2021-04-05] MEDS: VITAMIN D 1,000 INTERNATIONAL UNITS TABLET PO SCH (09:01)
[2021-04-05] MEDS: buPROPion 100 MG TAB PO SCH ×2 (09:01→15:44)
[2021-04-05] MEDS ORDERED: PROP20TA PO (15:35)
--- NOTE | 2021-04-05 15:48 | MHIPNPDOC ---
[facility] Progress Note Progress Note DATE OF SERVICE: 04/05/21 HISTORY: Patient is a 35 -year-old , female, who presents with suicidal ideation and plan to cut her wrists with a knife. She has a history of borde rline personality disorder, major depression, generalized anxiety, along with past hospitalizations for similar presentation several years ago. Recent stressors that she endorses includes the loss of her disability income, loss of a 5-year relationship with a boyfriend who recently told her that he had found another person, impending homelessness due to difficulties at her apartment, and the lack of support group. This resulted in Karen feeling like she wanted to take her own life, she did not feel safe with herself and so elected to come to the hospital seeking help. She reports that she is mistrustful hospitals as they historically have not been helpful due to a desire for providers to change medications for her. She is adamant that her current medications work well, and that she does not want a change but would prefer to seek a safe place and then ability to compose herself. She does not wish to change medication at this time feeling that her current regimen was working well for her prior to the increase in stressors, she is open to the idea and was educated about availability of adjunct medications while she is here in the hospital. VITAL SIGNS: See below. NEW TEST RESULTS:None CURRENT MEDICATIONS: See below. MENTAL STATUS EXAMINATION: Patient is a 35-year old female, who is dressed in personal clothing, found isolating in her room Speech: Is clear with regular rate, rhythm, and volume. Language skills are intact. Thought processes including: Logical, linear, and goal-directed. Thought content: Denies SI today, states that her mood is improving. Abstract reasoning, and computation: Intact. Description of associations: Linear. Description of abnormal or psychotic thoughts: Denies SI, HI, AVH. Judgment: Fair. Insight: Fair. Orientation: X3. Recent and remote memory: Intact. Attention span and concentration: Intact. Mood: "I am angry". Affect: Irritable, congruent to stated mood and thought content. DIAGNOSES: 1. Major depressive disorder, recurrent, severe, without psychotic features 2. Generalized anxiety disorder 3. Borderline personality disorder ASSESSMENT: Patient states she is angry because digital sales planner was unwilling to find services to help her find financial help with getting her 4 cats neutered per her landlord's demand in order to continue her tenancy. 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 She states that because of this interaction with the digital sales planner it motivated her to request to be discharged tomorrow as she is going to look for these answers her self. She reports that she has been communicating with her boyfriend and that the relationship is improving and it is repairable. Discharge orders are in place for tomorrow. She reported that she did not need any renewals for her medications MANAGEMENT PLAN: Continue current medications, dosing schedule adjusted to be closer to her home regimen. Discharge tomorrow TIME SPENT: 25 minutes. Vital Signs Vital Signs Date Time Temp Pulse Resp B/P (MAP) Pulse Ox O2 Delivery O2 Flow Rate FiO2 04/05/21 09:01 81 119/83 04/05/21 06:00 98.1 14 99 04/04/21 07:17 Room Air Current Medications Current Medications Medications (Trade) Dose Ordered Sig/Kiko Route PRN Reason Start Time Stop Time Status Last Admin Dose Admin Acetaminophen (Tylenol Tab) 650 mg Q6HP PRN PO HEADACHE or MILD DISCOMFORT 04/02/21 01:30 Al Hydrox/Mg Hydrox/Simethicone (Mylanta) 30 ml Q4HP PRN PO HEARTBURN/INDIGESTION 04/02/21 01:30 Bupropion HCl (Wellbutrin) 100 mg BID PO 04/02/21 09:00 04/02/21 12:37 DC 04/02/21 12:16 Bupropion HCl (Wellbutrin) 200 mg BID PO 04/02/21 21:00 04/03/21 12:28 DC 04/03/21 08:36 Bupropion HCl (Wellbutrin) 200 mg BID@0900,1600 PO 04/03/21 16:00 04/05/21 09:01 Bupropion HCl (Wellbutrin) 200 mg DAILY PO 04/03/21 16:00 04/03/21 16:39 DC Bupropion HCl (Wellbutrin) 200 mg DAILY PO 04/03/21 16:00 UNV Bupropion HCl (Wellbutrin) 200 mg DAILY PO 04/04/21 09:00 04/03/21 16:40 DC Duloxetine HCl (Cymbalta) 60 mg DAILY PO 04/03/21 09:00 04/05/21 09:00 Ferrous Sulfate (Ferrous Sulfate) 325 mg DAILY PO 04/02/21 09:00 04/05/21 09:00 Gabapentin (Neurontin) 800 mg DAILY@1600 PO 04/03/21 16:00 04/04/21 16:26 Gabapentin (Neurontin) 800 mg TID PO 04/02/21 09:00 04/03/21 12:29 DC 04/03/21 08:37 Gabapentin (Neurontin) 1,600 mg DAILY PO 04/04/21 09:00 04/05/21 08:59 Home Med (Home Med List Complete!) ASDIRECTED XX 04/02/21 02:00 04/02/21 02:06 DC Lamotrigine (LaMICtal) 75 mg DAILY PO 04/02/21 09:00 04/05/21 09:00 Levothyroxine Sodium (Synthroid) 100 mcg DAILY@0600 PO 04/02/21 06:00 04/05/21 06:19 Magnesium Hydroxide (Milk Of Magnesia) 30 ml DAILYPRN PRN PO CONSTIPATION 04/02/21 01:30 Olanzapine (ZyPREXA ZYDIS) 5 mg Q4HP PRN PO ANXIETY/AGITATION 04/02/21 01:30 Omeprazole (PriLOSEC) 40 mg BID PO 04/02/21 09:00 04/05/21 08:59 Propranolol HCl (Inderal) 20 mg BID@0900,1600 PO 04/03/21 16:00 04/05/21 09:01 Propranolol HCl (Inderal) 20 mg DAILY PO 04/02/21 09:00 04/03/21 12:53 DC 04/03/21 08:35 Tizanidine HCl (Zanaflex) 4 mg BID PRN PO migraine/muscle relaxation 04/02/21 22:50 04/03/21 12:30 DC Tizanidine HCl (Zanaflex) 4 mg Q8HP PRN PO migraine/muscle relaxation 04/03/21 12:30 04/04/21 20:53 Topiramate (TopAMAX) 50 mg BID PO 04/02/21 09:00 04/05/21 09:00 Trazodone HCl (Desyrel) 50 mg QHSP PRN PO INSOMNIA 04/02/21 01:30 Vitamin D (Vitamin D) 5,000 units DAILY PO 04/02/21 09:00 04/05/21 09:01 Allergies Coded Allergies: tramadol (Verified Adverse Reaction, Severe, SEROTONIN SYNDROME, 12/11/19) simvastatin (Verified Adverse Reaction, Intermediate, SEVERE JOINT PAIN, 12/11/19) JORDON TEMPLETON NP Apr 05, 2021 15:48
[2021-04-05 19:27] VITALS: BP 129/89
[2021-04-05] MEDS: tiZANidine 4 MG TAB PO PRN (19:54)
[2021-04-06 06:00] VITALS: BP 112/69
[2021-04-06] MEDS: LEVOTHYROXINE 100MCG TABLET (0.1MG) PO SCH (06:59)
[2021-04-06] MEDS: GABAPENTIN 400MG CAP PO SCH (08:58)
[2021-04-06] MEDS: TOPIRAMATE (TopAMAX) 25 MG TAB PO SCH (08:59)
[2021-04-06] MEDS: DULoxetine 30MG CAPSULE (CYMBALTA) PO SCH (08:59)
[2021-04-06] MEDS: VITAMIN D 1,000 INTERNATIONAL UNITS TABLET PO SCH (08:59)
[2021-04-06] MEDS: lamoTRIgine 25MG TAB PO SCH (08:59)
[2021-04-06] MEDS: OMEPRAZOLE 20 MG CAP PO SCH (08:59)
[2021-04-06] MEDS: FERROUS SULFATE 325MG TAB PO SCH (08:59)
[2021-04-06 09:00] VITALS: BP 112/69
[2021-04-06] MEDS: PROPRANOLOL 20 MG TAB PO SCH (09:00)
[2021-04-06] MEDS: buPROPion 100 MG TAB PO SCH (09:01)
--- NOTE | 2021-04-06 18:14 | MHDSPDOC ---
[facility] Discharge Summary Discharge Summary DATE OF ADMISSION: Apr 02, 2021 at 01:27 DATE OF DISCHARGE: Apr 06, 2021 at 10:46 DISCHARGE DIAGNOSES: 1. Major depressive disorder, recurrent, severe, without psychotic features 2. Generalized anxiety disorder 3. Borderline personality disorder REASON FOR ADMISSION: Patient is a 35 -year-old Single, Disabled, , female, who presents with suicidal ideation and plan to cut her wrists with a knife. She has a history of borderline personality disorder, major depression, generalized anxiety, along with past hospitalizations for similar presentation several years ago. Recent stressors that she endorses includes the loss of her disability income, loss of a 5-year relationship with a boyfriend who recently told her that he had found another person, impending homelessness due to difficulties at her apartment, and the lack of support group. This resulted in Karen feeling like she wanted to take her own life, she did not feel safe with herself and so elected to come to the hospital seeking help. She reports that she is mistrustful hospitals as they historically have not been helpful due to a desire for providers to change medications for her. She is adamant that her current medications work well, and that she does not want a change but would prefer to seek a safe place and then ability to compose herself. She does not wish to change medication at this time feeling that her current regimen was working well for her prior to the increase in stressors, she is open to the idea and was educated about availability of adjunct medications while she is here in the hospital. VITAL SIGNS: See below. CONSULTANTS INVOLVED: See Medical H + P by Hospitalist TREATMENT AND PROGRESS ON THE UNIT: Patient was admitted to the [facility] on a .39 legal status was afforded the following treatment modalities: 1) Individual Therapy 2) Group Therapy 3) Medication Management 4) Milieu Therapy 5) Safe Environment HOSPITAL COURSE: Patient was admitted to [facility] on a 9.39 legal status. Patient was restarted on her home medications. Pt found medications beneficial and tolerated them well. Mood, anxiety, and intrusive thoughts improved with treatment. Pt attended groups daily during stay. Pts symptoms improved with treatment. On day of discharge pt. denied depression, anxiety, insomnia, SI/HI, hallucinations, delusions. Pt was discharged home with follow-up with [facility]. Pt felt safe for discharge. DISCHARGE ASSESSMENT: In today's interview, patient is alert and oriented, pt.s dress is appropriate. Hygiene and grooming is well-kempt. Smiles on approach and is pleasant and engaged in the interview. Denies depression and anxiety. Denies suicidal and homicidal ideation, planning or intent. Denies and is not observed with mayank, psychotic symptoms of delusions, bizarre thinking, obsessions, paranoia, ruminations illogical thoughts, flight of ideas or having poor insight and judgement. Reinforced with patient need to abstain from alcohol and drugs. At discharge patient has normal mentation, declines further hospitalization on a voluntary status and meets criteria for discharge today. Discussed indications of medications, potential benefits and risks, alternatives (including no treatment) and questions were encouraged and answered. Patient encouraged to return to hospital if symptoms worsen or change and encouraged to call unit if he/she/they needs to speak to provider for questions regarding medications or care. MENTAL STATUS EXAMINATION ON DISCHARGE: Patient is a 35 -year-old Single, Disabled, , female, who presents with suicidal ideation and plan to cut her wrists with a knife. She has a history of borderline personality disorder, major depression, generalized anxiety, along with past hospitalizations for similar presentation several years ago. Speech: Is fluid, conversant, normal rate, tone and volume Language skills are intact Thought processes including: linear and goal oriented Thought content: denies depression and anxiety. Denies suicidal/homicidal ideation, planning or intent. Abstract reasoning, and computation: fair Description of associations: denies, none observed Description of abnormal or psychotic thoughts: denies, none observed. Judgment: fair Insight: fair Orientation: alert and oriented to person, place, time and situation Recent and remote memory: intact Attention span and concentration: good Language: expansive Fund of knowledge: average Mood: Euthymic Mood Affect: reactive Suicide Risk Assessment: 1) Does the patient wish to be ? No 2) Since your admission, have you had any actual thought of killing yourself? No 3) Since your admission, have you been thinking about how you might do this? No 4) Since your admission, have you had these thoughts and had some intention of acting on them? No 5) Since your admission, have you started to work out or worked out the details of how to kill yourself? No 5A) Do you intent to carry out this plan? No and NA 6) Have you ever done anything, started anything, or prepared to do anything with any intent to ? No 6A) How long since your admission did you do any of these? NA MEDICATIONS ON DISCHARGE: See Medication Reconciliation PLAN/FOLLOWUP ARRANGEMENTS: Follow Up Care Education Label * Mental Health Appt 1 * [facility] * Established With This Provider Yes * Therapist SHI * Date Apr 08, 2021 * Time 09:00 * Address of Clinic or Practice [address] [place] [address] * Follow Up Care Education Label * Mental Health Appt 2 * [facility] * Established With This Provider Yes * Therapist ISAMAR * Date Apr 21, 2021 * Time 15:45 * Address of Clinic or Practice [address] [place] [address] * Follow Up Care Education Label * Medical * Medical Follow Up [facility] [place] * Established With This Provider Yes * Therapist DR. IVORY * Date Apr 21, 2021 * Time 11:15 * Address of Clinic or Practice [address] [place] [address] * _ The amount of time spent in the coordination of care for this patient was approximately 25 minutes. ETOH/Disorder Med Rx ETOH/DRUG DISORDER RX: N/A Vital Signs/I&Os Vital Signs Date Time Temp Pulse Resp B/P (MAP) Pulse Ox O2 Delivery O2 Flow Rate FiO2 04/06/21 09:00 80 112/69 04/06/21 06:00 97.3 20 98 04/04/21 07:17 Room Air Medications Scheduled Bupropion HCl (Bupropion HCl) 100 Mg Tablet, 200 MG PO BID, (Reported) Cholecalciferol (Vitamin D3) (Vitamin D3) 1,000 Unit Tablet, 5,000 UNITS PO DAILY, (Reported) Duloxetine HCl (Duloxetine HCl) 60 Mg Capsule.dr, 60 MG PO DAILY, (Reported) Ferrous Sulfate (Ferrous Sulfate) 325 Mg Tablet.dr, 325 MG PO DAILY, (Reported) Gabapentin (Gabapentin) 800 Mg Tablet, 800 MG PO TID, (Reported) Lamotrigine (Lamotrigine) 25 Mg Tablet, 75 MG PO DAILY, (Reported) Levothyroxine Sodium (Levothyroxine Sodium) 100 Mcg Tablet, 100 MCG PO DAILY, (Reported) Omeprazole (Omeprazole) 40 Mg Cap, 40 MG PO BID, (Reported) Propranolol HCl (Propranolol HCl) 20 Mg Tablet, 20 MG PO BID@0900,1600 for Anxiety, #14 Topiramate (Topiramate) 50 Mg Tablet, 50 MG PO BID, (Reported) Allergies Coded Allergies: tramadol (Verified Adverse Reaction, Severe, SEROTONIN SYNDROME, 12/11/19) simvastatin (Verified Adverse Reaction, Intermediate, SEVERE JOINT PAIN, ) JORDON TEMPLETON NP Apr 06, 2021 18:14
== END 2021-04-06 10:46 | disposition home or self-care (01) | DRG 751 ==
LOC: M ED 18:52 → M ED INP 04-02 01:27 → M PSY 04-02 05:06
PROVIDERS: ADMIT Student in an Organized Health Care Education/Training Program; ATTEND Psychiatry & Neurology Psychiatry
DX: F33.2 Major depressive disorder, recurrent severe without psychotic features (principal); R45.851 Suicidal ideations; F60.3 Borderline personality disorder; F41.1 Generalized anxiety disorder; Z63.0 Problems in relationship with spouse or partner; Z56.0 Unemployment, unspecified; Z20.822 Contact with and (suspected) exposure to COVID-19; Z79.899 Other long term (current) drug therapy; Z88.5 Allergy status to narcotic agent; Z88.8 Allergy status to other drugs, medicaments and biological substances; Z63.8 Other specified problems related to primary support group

== ENCOUNTER → 2021-05-12 | Outpatient (CLI) | payer MEDICAID, OTHER ==
[~2021-05-12] MED LIST changes: +BUPR-69 PO; +DULO60CA35 PO; +GABA800T4 PO; +LAMO25TA4 PO; +LEVO100T5 PO; +PROP20TA PO; +PROP20TA72 PO
--- NOTE | 2021-05-13 08:44 | REP ---
INDICATION: NONTOXIC SINGLE THYROID NODULE. COMPARISON: 06/03/2019 TECHNIQUE: Real-time sonographic evaluation of the thyroid with Doppler FINDINGS: The right lobe measures 3.8 x 1.4 x 1.9 cm and the left lobe measures 3.6 x 1.2 x 0.7 cm. The isthmus measures 3 mm. There is an unchanged 5 mm size nodule in the right lobe. IMPRESSION: No change <Electronically signed by Brett Kent > 05/13/21 0841
== END ==
LOC: M WHC 16:00
PROVIDERS: ATTEND Family Medicine
DX: E04.1 Nontoxic single thyroid nodule (principal)

== ENCOUNTER 2021-09-19 14:03 | Emergency (ER) | payer MEDICAID, OTHER ==
[~2021-09-19] VITALS: Ht 160 cm; Wt 143.5 kg
[~2021-09-19 14:03] MED LIST changes: -D31000TA2 PO; +VITA100093 PO
[2021-09-19 16:07] LABS: BASO # 0.1 10^3/uL (0.0-0.2); EOS # 0.2 10^3/uL (0.0-0.5); EOS % 1.6 % (0.0-3.0); HEMATOCRIT 43.5 % (36.0-47.0); HEMOGLOBIN 13.9 g/dl (12.0-15.5); LYMPH # 2.4 10^3/uL (1.5-5.0); MEAN CORPUSCULAR HEMOGLOBIN 30.3 pg (27.0-33.0); MEAN CORPUSCULAR VOLUME 94.8 fl (80.0-96.0); MONO # 0.6 10^3/uL (0.0-0.8); MONO % 5.5 % (2.0-8.0); NEUTROPHILS # 6.8 10^3/uL (1.5-8.5); NEUTROPHILS % 67.4 % (36.0-66.0); PLATELET COUNT, AUTOMATED 433 10^3/uL (150-450); RED BLOOD COUNT 4.59 10^6/uL (4.00-5.40); WHITE BLOOD COUNT 10.1 10^3/uL (4.0-10.0)
[2021-09-19 16:29] LABS: INR 0.91; PROTHROMBIN TIME 12.7 SECONDS (12.7-14.5)
[2021-09-19 16:40] LABS: HCG, SERUM QUALITATIVE NEGATIVE (NEGATIVE)
[2021-09-19 16:41] LABS: BLOOD UREA NITROGEN 12 MG/DL (7-18); C REACTIVE PROTEIN QUANTITATIV 1.21 MG/DL (0.00-0.30); CALCIUM LEVEL 9.3 MG/DL (8.5-10.1); CARBON DIOXIDE LEVEL 29 MEQ/L (21-32); CHLORIDE LEVEL 107 MEQ/L (98-107); CREATININE FOR GFR 0.85 MG/DL (0.55-1.30); FREE T4 0.88 NG/DL (0.76-1.46); GLOMERULAR FILTRATION RATE > 60.0 (>60); GLUCOSE, FASTING 94 MG/DL (70-100); POTASSIUM SERUM 4.6 MEQ/L (3.5-5.1); SODIUM LEVEL 139 MEQ/L (136-145); THYROID STIMULATING HORMONE 0.864 uIU/ML (0.358-3.740)
[2021-09-19] MEDS ORDERED: ISOVUE-370 76% 100ML VIAL As Ordered ONE ×2 (17:14→17:38)
[2021-09-19 17:52] LABS: ALBUMIN 3.7 GM/DL (3.2-5.2); ALT/SGPT 19 U/L (12-78); BILIRUBIN,DIRECT < 0.1 MG/DL (0.0-0.2); BILIRUBIN,TOTAL 0.3 MG/DL (0.2-1.0); TOTAL PROTEIN 7.6 GM/DL (6.4-8.2)
[2021-09-19 18:24] LABS: ERYTHROCYTE SEDIMENTATION RATE 22 mm/hr (0-20)
[2021-09-19 19:51] VITALS: BP 136/96
== END 2021-09-19 19:55 | disposition home or self-care (01) ==
LOC: M ED 14:03
DX: R42 Dizziness and giddiness (principal); R10.10 Upper abdominal pain, unspecified; R07.9 Chest pain, unspecified; R11.0 Nausea; Z98.84 Bariatric surgery status; F84.5 Asperger's syndrome; M79.7 Fibromyalgia; E03.9 Hypothyroidism, unspecified; K42.9 Umbilical hernia without obstruction or gangrene; K44.9 Diaphragmatic hernia without obstruction or gangrene; F43.10 Post-traumatic stress disorder, unspecified; Z88.8 Allergy status to other drugs, medicaments and biological substances; Z79.899 Other long term (current) drug therapy; Z79.890 Hormone replacement therapy
CPT/HCPCS: 36415; 70450; 74177; 80048; 80076; 84439; 84443; 84703; 85025; 85610; 85652; 86140; 93005; 99284; Q9967

== ENCOUNTER → 2022-01-19 | Outpatient (CLI) | payer OTHER ==
[~2022-01-19] MED LIST changes: +BUPR-71 PO; -BUPR150T5 PO; +MORP1CAP11 PO; -MORP1CAP48 PO
== END ==
LOC: M PLAIMG 13:23
PROVIDERS: ATTEND Physician Assistant
DX: R42 Dizziness and giddiness (principal); R26.81 Unsteadiness on feet

== ENCOUNTER 2022-02-27 09:12 | Emergency (ER) | payer OTHER ==
[~2022-02-27] VITALS: Ht 160 cm; Wt 147.7 kg
[2022-02-27] MEDS ORDERED: PIPERACILLIN/TAZOBACTAM SOD 4.5 GM in D5W MINI-BAG PLUS 50 ML IV ONE (12:00)
[2022-02-27 13:05] LABS: BASO # 0.1 10^3/uL (0.0-0.2); BASO % 0.8 % (0.0-1.0); EOS # 0.2 10^3/uL (0.0-0.5); EOS % 1.4 % (0.0-3.0); HEMATOCRIT 43.2 % (36.0-47.0); HEMOGLOBIN 13.5 g/dl (12.0-15.5); LYMPH # 1.9 10^3/uL (1.5-5.0); MEAN CORPUSCULAR HEMOGLOBIN 30.1 pg (27.0-33.0); MEAN CORPUSCULAR HGB CONC 31.3 g/dl (32.0-36.5); MEAN CORPUSCULAR VOLUME 96.2 fl (80.0-96.0); MONO # 0.6 10^3/uL (0.0-0.8); MONO % 5.2 % (2.0-8.0); NEUTROPHILS # 8.3 10^3/uL (1.5-8.5); NEUTROPHILS % 75.1 % (36.0-66.0); PLATELET COUNT, AUTOMATED 361 10^3/uL (150-450); RED BLOOD COUNT 4.49 10^6/uL (4.00-5.40); WHITE BLOOD COUNT 11.1 10^3/uL (4.0-10.0)
[2022-02-27 13:46] LABS: BLOOD UREA NITROGEN 12 MG/DL (7-18); CARBON DIOXIDE LEVEL 26 MEQ/L (21-32); CHLORIDE LEVEL 105 MEQ/L (98-107); CREATININE FOR GFR 0.83 MG/DL (0.55-1.30); GLOMERULAR FILTRATION RATE > 60.0 (>60); GLUCOSE, FASTING 92 MG/DL (70-100); POTASSIUM SERUM 4.5 MEQ/L (3.5-5.1); SODIUM LEVEL 138 MEQ/L (136-145)
[2022-02-27 13:47] LABS: C REACTIVE PROTEIN QUANTITATIV 3.31 MG/DL (0.00-0.30); CALCIUM LEVEL 8.9 MG/DL (8.5-10.1)
[2022-02-27 14:19] LABS: ERYTHROCYTE SEDIMENTATION RATE 27 mm/hr (0-20)
[2022-02-27] MEDS ORDERED: AMOX875T2 PO (14:38)
[2022-02-27 15:06] VITALS: BP 143/84
== END 2022-02-27 15:08 | disposition home or self-care (01) ==
LOC: M ED 09:12
DX: S61.452A Open bite of left hand, initial encounter (principal); W55.01XA Bitten by cat, initial encounter; L03.114 Cellulitis of left upper limb; Y92.009 Unspecified place in unspecified non-institutional (private) residence as the place of occurrence of the external cause; K21.9 Gastro-esophageal reflux disease without esophagitis; E03.9 Hypothyroidism, unspecified; Z88.8 Allergy status to other drugs, medicaments and biological substances
CPT/HCPCS: 73130; 80048; 85025; 85652; 86140; 87070; 87077; 87205; 96365; 99284; J2543

== ENCOUNTER → 2022-06-05 | Outpatient (CLI) | payer OTHER ==
[~2022-06-05] MED LIST changes: +AMOX875T2 PO
[2022-06-05 18:12] LABS: BASO # 0.1 10^3/uL (0.0-0.2); BASO % 0.8 % (0.0-1.0); EOS # 0.2 10^3/uL (0.0-0.5); EOS % 1.7 % (0.0-3.0); HEMATOCRIT 41.4 % (36.0-47.0); HEMOGLOBIN 12.9 g/dl (12.0-15.5); LYMPH # 2.2 10^3/uL (1.5-5.0); LYMPH % 20.3 % (24.0-44.0); MEAN CORPUSCULAR HEMOGLOBIN 30.6 pg (27.0-33.0); MEAN CORPUSCULAR HGB CONC 31.2 g/dl (32.0-36.5); MEAN CORPUSCULAR VOLUME 98.1 fl (80.0-96.0); MONO # 0.6 10^3/uL (0.0-0.8); MONO % 5.2 % (2.0-8.0); NEUTROPHILS # 7.6 10^3/uL (1.5-8.5); NEUTROPHILS % 71.3 % (36.0-66.0); PLATELET COUNT, AUTOMATED 383 10^3/uL (150-450); RED BLOOD COUNT 4.22 10^6/uL (4.00-5.40); WHITE BLOOD COUNT 10.6 10^3/uL (4.0-10.0)
[2022-06-05 18:46] LABS: RHEUMATOID FACTOR QUANT < 3.5 IU/ML (<14)
[2022-06-05 19:41] LABS: ERYTHROCYTE SEDIMENTATION RATE 24 mm/hr (0-20)
== END ==
LOC: M PLALAB 14:18
PROVIDERS: ATTEND Orthopaedic Surgery
DX: M17.0 Bilateral primary osteoarthritis of knee (principal)

== ENCOUNTER → 2023-06-13 | Outpatient (CLI) | payer OTHER ==
[~2023-06-13] MED LIST changes: -AMIT25TA17 PO; +AMIT25TA19 PO; -GABA-283 PO; +GABA-284 PO; +TOPI-21 PO; -TOPI50TA9 PO
[2023-06-13 12:09] LABS: BASO # 0.1 10^3/uL (0.0-0.2); EOS # 0.2 10^3/uL (0.0-0.5); EOS % 2.2 % (0.0-3.0); HEMATOCRIT 42.5 % (36.0-47.0); HEMOGLOBIN 13.5 g/dl (12.0-15.5); LYMPH # 2.5 10^3/uL (1.5-5.0); LYMPH % 23.3 % (24.0-44.0); MEAN CORPUSCULAR HEMOGLOBIN 30.8 pg (27.0-33.0); MEAN CORPUSCULAR HGB CONC 31.8 g/dl (32.0-36.5); MEAN CORPUSCULAR VOLUME 96.8 fl (80.0-96.0); MONO # 0.8 10^3/uL (0.0-0.8); MONO % 7.6 % (2.0-8.0); NEUTROPHILS % 65.2 % (36.0-66.0); PLATELET COUNT, AUTOMATED 422 10^3/uL (150-450); RED BLOOD COUNT 4.39 10^6/uL (4.00-5.40); WHITE BLOOD COUNT 10.7 10^3/uL (4.0-10.0)
[2023-06-13 12:32] LABS: IRON (FE) 102 UG/DL (50-170); PERCENT SATURATION 31.6 % (13.2-45.0); TOTAL IRON BINDING CAPACITY 323 UG/DL (250-425)
[2023-06-13 12:33] LABS: ALBUMIN 3.2 G/DL (3.2-5.2); ALKALINE PHOSPHATASE 107 U/L (46-116); ALT/SGPT 16 U/L (7.0-40); AST/SGOT 15 U/L (<34); BILIRUBIN,TOTAL 0.3 MG/DL (0.3-1.2); BLOOD UREA NITROGEN 11 MG/DL (9-23); CALCIUM LEVEL 8.9 MG/DL (8.5-10.1); CARBON DIOXIDE LEVEL 28 MMOL/L (20-31); CHLORIDE LEVEL 105 MMOL/L (98-107); CHOLESTEROL LEVEL 190 MG/DL (<200); CHOLESTEROL RISK RATIO 3.34 (<5); CREATININE FOR GFR 0.83 MG/DL (0.55-1.30); FERRITIN 33.7 NG/ML (7.3-270.7); GLOMERULAR FILTRATION RATE > 60.0 (>60); GLUCOSE, FASTING 95 MG/DL (60-100); HDL CHOLESTEROL 56.8 MG/DL (>40); LDL CHOLESTEROL 108.2 MG/DL (<100); NON-HDL-C 133.2 MG/DL; POTASSIUM SERUM 4.5 MMOL/L (3.5-5.1); SODIUM LEVEL 140 MMOL/L (136-145); TOTAL 25(OH) VITAMIN D 31.4 NG/ML (20.0-100.0); TOTAL PROTEIN 6.7 G/DL (5.7-8.2); TRIGLYCERIDES LEVEL 125 MG/DL (<150)
[2023-06-13 12:37] LABS: HEMOGLOBIN A1c 5.3 % (4.0-6.0)
== END ==
LOC: M LAB 11:33
PROVIDERS: ATTEND Nurse Practitioner Family
DX: E66.9 Obesity, unspecified (principal)

== ENCOUNTER → 2023-09-20 | Outpatient (CLI) | payer OTHER ==
[~2023-09-20] MED LIST changes: -KLON0.5T PO; +KLON0.5T8 PO
== END ==
LOC: M RAD 13:36
PROVIDERS: ATTEND Physician Assistant
DX: M79.604 Pain in right leg (principal)

== ENCOUNTER → 2023-11-15 | Outpatient (REF) | payer OTHER | LOC: M LAB REF 17:39 | PROVIDERS: ATTEND Physician Assistant | DX: Z12.4 Encounter for screening for malignant neoplasm of cervix (principal); Z01.42 Encounter for cervical smear to confirm findings of recent normal smear following initial abnormal smear; Z01.419 Encounter for gynecological examination (general) (routine) without abnormal findings; R87.810 Cervical high risk human papillomavirus (HPV) DNA test positive ==

== ENCOUNTER → 2023-12-05 | Outpatient (CLI) | payer OTHER | LOC: M RAD 14:15 | PROVIDERS: ATTEND Physician Assistant | DX: E03.9 Hypothyroidism, unspecified (principal) ==

== ENCOUNTER → 2024-09-01 | Outpatient (CLI) | payer OTHER ==
[~2024-09-01] MED LIST changes: +GABA-1172; +GABA-1172 PO; +GABA-1490 PO; +GABA-1635 PO; -GABA-282; -GABA-282 PO; -GABA600T4 PO; -GABA800T4 PO
[2024-09-01 15:25] LABS: BASO # 0.1 10^3/uL (0.0-0.2); BASO % 0.9 % (0.0-1.0); EOS # 0.4 10^3/uL (0.0-0.5); EOS % 3.3 % (0.0-3.0); HEMATOCRIT 43.1 % (36.0-47.0); HEMOGLOBIN 13.9 g/dl (12.0-15.5); LYMPH # 2.2 10^3/uL (1.5-5.0); LYMPH % 18.6 % (24.0-44.0); MEAN CORPUSCULAR HEMOGLOBIN 31.4 pg (27.0-33.0); MEAN CORPUSCULAR HGB CONC 32.3 g/dl (32.0-36.5); MEAN CORPUSCULAR VOLUME 97.5 fl (80.0-96.0); MONO # 0.8 10^3/uL (0.0-0.8); NEUTROPHILS # 8.1 10^3/uL (1.5-8.5); NEUTROPHILS % 69.7 % (36.0-66.0); PLATELET COUNT, AUTOMATED 425 10^3/uL (150-450); RED BLOOD COUNT 4.42 10^6/uL (4.00-5.40); WHITE BLOOD COUNT 11.6 10^3/uL (4.0-10.0)
[2024-09-01 15:33] LABS: FOLATE > 24.0 NG/ML (>5.4); IRON (FE) 78 UG/DL (50-170); PERCENT SATURATION 25.7 % (13.2-45.0); TOTAL IRON BINDING CAPACITY 303 UG/DL (250-425); VITAMIN B12 LEVEL 430 PG/ML (211-911)
[2024-09-01 15:34] LABS: ALBUMIN 3.5 G/DL (3.2-5.2); ALKALINE PHOSPHATASE 96 U/L (35-104); ALT/SGPT 15 U/L (7.0-40); AST/SGOT 16 U/L (<34); BILIRUBIN,TOTAL 0.4 MG/DL (0.3-1.2); BLOOD UREA NITROGEN 12 MG/DL (9-23); CARBON DIOXIDE LEVEL 29 MMOL/L (20-31); CHLORIDE LEVEL 106 MMOL/L (98-107); CHOLESTEROL LEVEL 167 MG/DL (<200); CREATININE FOR GFR 0.71 MG/DL (0.55-1.30); FERRITIN 77.4 NG/ML (7.3-270.7); GLOMERULAR FILTRATION RATE > 60.0 (>60); GLUCOSE, FASTING 85 MG/DL (60-100); HDL CHOLESTEROL 53.8 MG/DL (>40); LDL CHOLESTEROL 96.4 MG/DL (<100); NON-HDL-C 113.2 MG/DL; POTASSIUM SERUM 4.4 MMOL/L (3.5-5.1); SODIUM LEVEL 143 MMOL/L (136-145); TOTAL 25(OH) VITAMIN D 48.8 NG/ML (20.0-100.0); TOTAL PROTEIN 7.1 G/DL (5.7-8.2); TRIGLYCERIDES LEVEL 84 MG/DL (<150)
[2024-09-01 15:35] LABS: THYROID STIMULATING HORMONE 1.658 uIU/ML (0.55-4.78)
[2024-09-01 15:50] LABS: HEMOGLOBIN A1c 5.1 % (4.0-6.0)
== END ==
LOC: M PLALAB 13:21
PROVIDERS: ATTEND Nurse Practitioner Family
DX: E03.9 Hypothyroidism, unspecified (principal)

== ENCOUNTER 2025-04-15 07:49 | Day surgery (SDC) | payer OTHER ==
[~2025-04-15] VITALS: Ht 160 cm; Wt 155.1 kg
[~2025-04-15 07:49] MED LIST changes: +DIFI200T PO; +DULO-34 PO; +LAMO-18 PO; +LAMO100T3 PO; -LAMO25TA4 PO; +OXYC1TAB23 PO; +PROB250C PO; -VITA500T17 PO; +VITA500T8 PO
[2025-04-15] MEDS ORDERED: LIDOCAINE 2% 100 MG/5 ML SDV (FOR ANES.) As Ordered ONE (08:59)
[2025-04-15] MEDS ORDERED: dexmedeTOMIDine (4 MCG/ML) 200 MCG/50 ML BTL As Ordered ONE (09:08)
[2025-04-15 09:43] VITALS: BP 144/79; O2SAT 99
== END 2025-04-15 09:49 | disposition home or self-care (01) ==
LOC: M OPP 07:49
PROVIDERS: ATTEND Surgery
DX: K22.89 Other specified disease of esophagus (principal); K29.50 Unspecified chronic gastritis without bleeding; K31.7 Polyp of stomach and duodenum; Z98.84 Bariatric surgery status; K30 Functional dyspepsia; Z88.5 Allergy status to narcotic agent; Z88.8 Allergy status to other drugs, medicaments and biological substances; Z79.899 Other long term (current) drug therapy
CPT/HCPCS: 43251; 88305; J3010

== ENCOUNTER → 2025-04-22 | Outpatient (CLI) | payer OTHER ==
[2025-04-22 11:34] LABS: BASO # 0.1 10^3/uL (0.0-0.2); BASO % 1.1 % (0.0-1.0); EOS # 0.3 10^3/uL (0.0-0.5); EOS % 3.1 % (0.0-3.0); LYMPH # 1.9 10^3/uL (1.5-5.0); LYMPH % 21.3 % (24.0-44.0); MONO # 0.6 10^3/uL (0.0-0.8); MONO % 6.3 % (2.0-8.0); NEUTROPHILS # 6.0 10^3/uL (1.5-8.5); NEUTROPHILS % 68.0 % (36.0-66.0); PLATELET COUNT, AUTOMATED 402 10^3/uL (150-450)
[2025-04-22 12:07] LABS: C REACTIVE PROTEIN QUANTITATIV 1.65 MG/DL (<1.0)
[2025-04-22 12:08] LABS: ALT/SGPT 16 U/L (7.0-40); AST/SGOT 17 U/L (<34); CALCIUM LEVEL 9.1 MG/DL (8.5-10.1); CARBON DIOXIDE LEVEL 29 MMOL/L (20-31); CHLORIDE LEVEL 105 MMOL/L (98-107); CREATININE FOR GFR 0.81 MG/DL (0.55-1.30); GLOMERULAR FILTRATION RATE > 90.0 (>60); POTASSIUM SERUM 4.1 MMOL/L (3.5-5.1); RHEUMATOID FACTOR QUANT < 3.5 IU/ML (<14); SODIUM LEVEL 143 MMOL/L (136-145)
[2025-04-23 13:27] LABS: SSA SJOGRENS A <1.0 NEG AI (<1.0 NEG); SSB SJOGRENS B <1.0 NEG AI (<1.0 NEG)
[2025-04-25 06:31] LABS: ERYTHROCYTE SEDIMENTATION RATE 13 mm/hr (0-20)
== END ==
LOC: M LAB 10:54
PROVIDERS: ATTEND Nurse Practitioner Family
DX: M54.50 Low back pain, unspecified (principal)